=== PATIENT | male | born 1960 | race Caucasian/White ===

== ENCOUNTER 2019-10-22 11:07 | Outpatient (CLI) | payer OTHER ==
[2019-10-22 11:51] LABS: CLARITY,URINE CLEAR (Clear); COLOR,URINE YELLOW (Yellow); GLUCOSE, URINE NEGATIVE (Neg); KETONES,URINE NEGATIVE (Neg); LEUKOCYTE ESTERASE ,URINE NEGATIVE (Neg); NITRITES, URINE NEGATIVE (Neg); OCCULT BLOOD,URINE SMALL (Neg); PROTEIN,URINE NEGATIVE (Neg); UA COLLECTION TYPE CLN CATCH MIDSTREAM; UROBILINOGEN,URINE 0.2 E.U/dL (0.2-1.0)
[2019-10-22 11:52] LABS: BASOPHILS # (AUTO) 0.1 X10'3 (0-0.2); BASOPHILS % (AUTO) 0.9 % (0-1); EOSINOPHILS # (AUTO) 0.3 X10'3 (0-0.9); EOSINOPHILS % (AUTO) 3.6 % (0-6); HEMATOCRIT 46.4 % (42.0-52.0); HEMOGLOBIN 15.8 g/dl (14.0-17.9); LYMPHOCYTES # (AUTO) 1.7 X10'3 (1.1-4.8); LYMPHOCYTES % (AUTO) 21.7 % (21-51); MEAN CORPUSCULAR HEMOGLOBIN 29.1 PG (27.0-31.0); MEAN CORPUSCULAR HGB CONC 34.1 g/dL (33.0-36.5); MEAN CORPUSCULAR VOLUME 85.4 FL (78-98); MEAN PLATELET VOLUME 9.3 FL (7.4-10.4); MONOCYTES # (AUTO) 0.5 X10'3 (0-0.9); MONOCYTES % (AUTO) 5.7 % (2-12); NEUTROPHILS # (AUTO) 5.4 X10'3 (1.8-7.7); NEUTROPHILS % (AUTO) 68.1 % (42-75); PLATELET COUNT 196 X10'3 (140-440); RED BLOOD COUNT 5.43 X10'6 (4.70-6.10); RED CELL DISTRIBUTION WIDTH 13.6 % (11.5-14.5); WHITE BLOOD COUNT 7.9 X10'3 (4.5-11.0)
[2019-10-22 11:59] LABS: SQUAMOUS EPITHELIAL CELL,UR FEW /LPF (FEW)
[2019-10-22 12:00] LABS: BACTERIA,URINE FEW /HPF (Neg); RBC,URINE 0-2 /HPF (0-2); WBC,URINE NONE SEEN /HPF (0-4)
[2019-10-22 12:10] LABS: ALANINE AMINOTRANSFERASE 35 U/L (12-78); ALBUMIN/GLOBULIN RATIO 1.1 (1.1-1.5); ALKALINE PHOSPHATASE 61 IU/L (46-116); ANION GAP 7 (8-16); ASPARTATE AMINO TRANSFERASE 15 U/L (10-37); BILIRUBIN,TOTAL 0.3 MG/DL (0.1-1.0); BLOOD UREA NITROGEN 16 MG/DL (7-18); BUN/CREATININE RATIO 15.2 (5.4-32.0); CALCIUM 8.8 MG/DL (8.5-10.1); CHLORIDE 104 MMOL/L (99-107); CHOL/HDL RATIO 5.5 (0.00-4.99); CHOLESTEROL 197 MG/DL (0-200); CREATININE 1.05 MG/DL (0.60-1.10); GLUCOSE 116 MG/DL (70-104); HDL CHOLESTEROL 36 MG/DL (35-60); LDL CHOLESTEROL 139 MG/DL (50-100); SODIUM 139 MMOL/L (135-145); TOTAL CARBON DIOXIDE 28.4 MMOL/L (24-32); TOTAL PROTEIN 7.7 G/DL (6.4-8.2); TRIGLYCERIDES 165 MG/DL (20-135); eGFR 72 ML/MIN
== END 2019-10-22 23:59 | disposition home or self-care (01) ==
LOC: RAD 11:07
PROVIDERS: ATTEND Family Medicine
DX: Z12.11 Encounter for screening for malignant neoplasm of colon (principal); M17.0 Bilateral primary osteoarthritis of knee; M76.892 Other specified enthesopathies of left lower limb, excluding foot; M76.891 Other specified enthesopathies of right lower limb, excluding foot; I10 Essential (primary) hypertension; R06.83 Snoring; E66.9 Obesity, unspecified; Z76.89 Persons encountering health services in other specified circumstances; Z87.891 Personal history of nicotine dependence
CPT/HCPCS: 36415; 73564; 80053; 80061; 81001; 84439; 84443; 85025

== ENCOUNTER 2019-12-04 07:43 | Day surgery (SDC) | payer OTHER ==
[~2019-12-04] VITALS: Ht 188 cm; Wt 104.5 kg
[2019-12-04 08:15] VITALS: BP 187/98
[2019-12-04] MEDS ORDERED: LISI40TA4 PO (08:24)
[2019-12-04] MEDS ORDERED: LEVO25TA7 PO (08:25)
[2019-12-04] MEDS ORDERED: MIDAZolam 5mg/5ml vial ONE (08:37)
[2019-12-04] MEDS ORDERED: fentaNYL/PF 50MCG/1 ML 2ML syringe ONE (08:37)
[2019-12-04 10:12] VITALS: BP 140/84
[2019-12-04 10:22] VITALS: BP 132/79
[2019-12-04 10:32] VITALS: BP 131/82
== END 2019-12-04 10:55 | disposition home or self-care (01) ==
LOC: GI LAB 07:43
PROVIDERS: ATTEND Internal Medicine Gastroenterology
DX: Z12.11 Encounter for screening for malignant neoplasm of colon (principal); Z53.8 Procedure and treatment not carried out for other reasons; Z87.19 Personal history of other diseases of the digestive system
CPT/HCPCS: 45378; 99152; J2250; J3010; J7040; A4620

== ENCOUNTER 2019-12-05 10:08 | Day surgery (SDC) | payer OTHER ==
[~2019-12-05] VITALS: Ht 188 cm; Wt 150.0 kg
[~2019-12-05 10:08] MED LIST: LEVO25TA7 PO; LISI40TA4 PO
[2019-12-05 10:14] VITALS: BP 158/93
[2019-12-05] MEDS ORDERED: fentaNYL/PF 50MCG/1 ML 2ML syringe ONE (10:47)
[2019-12-05] MEDS ORDERED: MIDAZolam 5mg/5ml vial ONE (10:47)
[2019-12-05 11:43] VITALS: BP 138/86
[2019-12-05 11:53] VITALS: BP 124/81
[2019-12-05 12:03] VITALS: BP 125/89
[2019-12-05 12:13] VITALS: BP 138/87
== END 2019-12-05 12:30 | disposition home or self-care (01) ==
LOC: GI LAB 10:08
PROVIDERS: ATTEND Internal Medicine Gastroenterology
DX: Z12.11 Encounter for screening for malignant neoplasm of colon (principal); K57.30 Diverticulosis of large intestine without perforation or abscess without bleeding
CPT/HCPCS: 45378; 99152; 99153; J2250; J3010; J7040; A4620

== ENCOUNTER 2019-12-11 10:15 | Outpatient (CLI) | payer OTHER ==
[2019-12-11 11:12] LABS: HEMOGLOBIN A1C 6.4 % (4.5-6.2)
[2019-12-11 11:21] LABS: CHOL/HDL RATIO 5.9 (0.00-4.99); CHOLESTEROL 188 MG/DL (0-200); HDL CHOLESTEROL 32 MG/DL (35-60); LDL CHOLESTEROL 132 MG/DL (50-100); TRIGLYCERIDES 279 MG/DL (20-135)
== END 2019-12-11 23:59 | disposition home or self-care (01) ==
LOC: LAB 10:15
PROVIDERS: ATTEND Family Medicine
DX: E03.9 Hypothyroidism, unspecified (principal); E78.5 Hyperlipidemia, unspecified; R73.9 Hyperglycemia, unspecified
CPT/HCPCS: 36415; 80061; 83036; 84439; 84443

== ENCOUNTER 2020-07-07 12:12 | Outpatient (CLI) | payer BC ==
[2020-07-07 13:26] LABS: BASOPHILS # (AUTO) 0.1 X10'3 (0-0.2); BASOPHILS % (AUTO) 0.5 % (0-1); EOSINOPHILS # (AUTO) 0.2 X10'3 (0-0.9); EOSINOPHILS % (AUTO) 2.3 % (0-6); HEMATOCRIT 46.7 % (42.0-52.0); HEMOGLOBIN 15.5 g/dl (14.0-17.9); LYMPHOCYTES # (AUTO) 2.1 X10'3 (1.1-4.8); LYMPHOCYTES % (AUTO) 21.6 % (21-51); MEAN CORPUSCULAR HEMOGLOBIN 28.7 PG (27.0-31.0); MEAN CORPUSCULAR HGB CONC 33.2 g/dL (33.0-36.5); MEAN CORPUSCULAR VOLUME 86.5 FL (78-98); MEAN PLATELET VOLUME 9.6 FL (7.4-10.4); MONOCYTES # (AUTO) 0.8 X10'3 (0-0.9); MONOCYTES % (AUTO) 8.3 % (2-12); NEUTROPHILS # (AUTO) 6.4 X10'3 (1.8-7.7); NEUTROPHILS % (AUTO) 67.3 % (42-75); PLATELET COUNT 252 X10'3 (140-440); RED CELL DISTRIBUTION WIDTH 13.6 % (11.5-14.5); WHITE BLOOD COUNT 9.5 X10'3 (4.5-11.0)
[2020-07-07 13:37] LABS: HEMOGLOBIN A1C 7.5 % (4.5-6.2)
[2020-07-07 13:58] LABS: ALANINE AMINOTRANSFERASE 40 U/L (12-78); ALBUMIN 3.7 G/DL (3.4-5.0); ALBUMIN/GLOBULIN RATIO 0.9 (1.1-1.5); ALKALINE PHOSPHATASE 44 IU/L (46-116); ANION GAP 12 (8-16); ASPARTATE AMINO TRANSFERASE 22 U/L (10-37); BILIRUBIN,TOTAL 0.4 MG/DL (0.1-1.0); BLOOD UREA NITROGEN 15 MG/DL (7-18); BUN/CREATININE RATIO 12.1 (5.4-32.0); CALCIUM 9.1 MG/DL (8.5-10.1); CHLORIDE 101 MMOL/L (99-107); CHOL/HDL RATIO 5.8 (0.00-4.99); CHOLESTEROL 187 MG/DL (0-200); CREATININE 1.24 MG/DL (0.60-1.10); GLUCOSE 165 MG/DL (70-104); HDL CHOLESTEROL 32 MG/DL (35-60); LDL CHOLESTEROL 125 MG/DL (50-100); POTASSIUM 4.1 MMOL/L (3.5-5.1); SODIUM 138 MMOL/L (135-145); TOTAL CARBON DIOXIDE 25.4 MMOL/L (24-32); TOTAL PROTEIN 7.9 G/DL (6.4-8.2); TRIGLYCERIDES 294 MG/DL (20-135); eGFR 59 ML/MIN
== END 2020-07-07 23:59 | disposition home or self-care (01) ==
LOC: LAB 12:12
PROVIDERS: ATTEND Family Medicine
DX: E03.9 Hypothyroidism, unspecified (principal); I10 Essential (primary) hypertension; E78.5 Hyperlipidemia, unspecified; R06.83 Snoring; R73.01 Impaired fasting glucose
CPT/HCPCS: 36415; 80053; 80061; 83036; 84439; 84443; 85025

== ENCOUNTER 2020-09-20 09:05 | Outpatient (CLI) | payer BC ==
[2020-09-20 09:36] LABS: ALBUMIN 4.1 G/DL (3.4-5.0); ANION GAP 7 (8-16); BLOOD UREA NITROGEN 24 MG/DL (7-18); BUN/CREATININE RATIO 15.8 (5.4-32.0); CALCIUM 9.3 MG/DL (8.5-10.1); CHLORIDE 99 MMOL/L (99-107); CREATININE 1.52 MG/DL (0.60-1.10); GLUCOSE 109 MG/DL (70-104); HEMOGLOBIN A1C 6.6 % (4.5-6.2); SODIUM 133 MMOL/L (135-145); TOTAL CARBON DIOXIDE 27.5 MMOL/L (24-32); eGFR 47 ML/MIN
== END 2020-09-20 23:59 | disposition home or self-care (01) ==
LOC: LAB 09:05
PROVIDERS: ATTEND Family Medicine
DX: E78.5 Hyperlipidemia, unspecified (principal); E11.9 Type 2 diabetes mellitus without complications
CPT/HCPCS: 36415; 80048; 83036

== ENCOUNTER 2021-01-20 08:22 | Outpatient (CLI) | payer BC ==
[~2021-01-20 08:22] MED LIST changes: +LISI40TA13 PO; -LISI40TA4 PO
[2021-01-20 09:09] LABS: BASOPHILS # (AUTO) 0.1 X10'3 (0-0.2); BASOPHILS % (AUTO) 0.7 % (0-1); EOSINOPHILS # (AUTO) 0.3 X10'3 (0-0.9); EOSINOPHILS % (AUTO) 3.2 % (0-6); HEMATOCRIT 48.2 % (42.0-52.0); HEMOGLOBIN 16.1 g/dl (14.0-17.9); LYMPHOCYTES % (AUTO) 24.4 % (21-51); MEAN CORPUSCULAR HGB CONC 33.4 g/dL (33.0-36.5); MEAN CORPUSCULAR VOLUME 86.8 FL (78-98); MONOCYTES # (AUTO) 0.7 X10'3 (0-0.9); MONOCYTES % (AUTO) 8.7 % (2-12); NEUTROPHILS # (AUTO) 5.3 X10'3 (1.8-7.7); PLATELET COUNT 243 X10'3 (140-440); RED BLOOD COUNT 5.56 X10'6 (4.70-6.10); RED CELL DISTRIBUTION WIDTH 13.6 % (11.5-14.5); WHITE BLOOD COUNT 8.4 X10'3 (4.5-11.0)
[2021-01-20 09:15] LABS: HEMOGLOBIN A1C 6.5 % (4.5-6.2)
[2021-01-20 09:23] LABS: CLARITY,URINE CLEAR (Clear); COLOR,URINE YELLOW (Yellow); GLUCOSE, URINE NEGATIVE (Neg); KETONES,URINE NEGATIVE (Neg); LEUKOCYTE ESTERASE ,URINE NEGATIVE (Neg); NITRITES, URINE NEGATIVE (Neg); OCCULT BLOOD,URINE TRACE-INTACT (Neg); PROTEIN,URINE NEGATIVE (Neg); UROBILINOGEN,URINE 0.2 E.U/dL (0.2-1.0)
[2021-01-20 09:30] LABS: UA COLLECTION TYPE CLN CATCH MIDSTREAM
[2021-01-20 09:38] LABS: BACTERIA,URINE NONE SEEN /HPF (Neg); RBC,URINE NONE SEEN /HPF (0-2); SQUAMOUS EPITHELIAL CELL,UR FEW /LPF (FEW); WBC,URINE 0-4 /HPF (0-4)
[2021-01-20 10:13] LABS: ALANINE AMINOTRANSFERASE 38 U/L (12-78); ALBUMIN 3.9 G/DL (3.4-5.0); ALKALINE PHOSPHATASE 55 IU/L (46-116); ANION GAP 8 (8-16); ASPARTATE AMINO TRANSFERASE 16 U/L (10-37); BILIRUBIN,TOTAL 0.5 MG/DL (0.1-1.0); BLOOD UREA NITROGEN 25 MG/DL (7-18); BUN/CREATININE RATIO 19.1 (5.4-32.0); CALCIUM 9.6 MG/DL (8.5-10.1); CHLORIDE 101 MMOL/L (99-107); CHOL/HDL RATIO 3.7 (0.00-4.99); CHOLESTEROL 155 MG/DL (0-200); CREATININE 1.31 MG/DL (0.60-1.10); GLUCOSE 117 MG/DL (70-104); HDL CHOLESTEROL 42 MG/DL (35-60); LDL CHOLESTEROL 95 MG/DL (50-100); POTASSIUM 4.2 MMOL/L (3.5-5.1); SODIUM 138 MMOL/L (135-145); TOTAL PROTEIN 7.9 G/DL (6.4-8.2); eGFR 55 ML/MIN
[2021-01-20 11:45] LABS: TRIGLYCERIDES 124 MG/DL (20-135)
== END 2021-01-20 23:59 | disposition home or self-care (01) ==
LOC: LAB 08:22
PROVIDERS: ATTEND Family Medicine
DX: M17.12 Unilateral primary osteoarthritis, left knee (principal); M25.462 Effusion, left knee; M25.461 Effusion, right knee; M25.762 Osteophyte, left knee; M25.761 Osteophyte, right knee; R53.83 Other fatigue; D64.9 Anemia, unspecified; E78.5 Hyperlipidemia, unspecified; N30.90 Cystitis, unspecified without hematuria; E07.9 Disorder of thyroid, unspecified; E11.9 Type 2 diabetes mellitus without complications
CPT/HCPCS: 36415; 73564; 73565; 80053; 80061; 81001; 83036; 84439; 84443; 85025

== ENCOUNTER → 2021-10-05 | Emergency (ER) | payer BC ==
[~2021-10-05] VITALS: Ht 188 cm; Wt 145.0 kg
[2021-10-05 23:24] VITALS: BP 160/96
== END | disposition left against medical advice (07) ==
LOC: ER 23:19
DX: S61.219A Laceration without foreign body of unspecified finger without damage to nail, initial encounter (principal); Z53.21 Procedure and treatment not carried out due to patient leaving prior to being seen by health care provider; X58.XXXA Exposure to other specified factors, initial encounter; Y93.9 Activity, unspecified; Y92.9 Unspecified place or not applicable; Y99.9 Unspecified external cause status

== ENCOUNTER 2021-11-29 20:39 | Inpatient (IN) | payer BC ==
[~2021-11-29] VITALS: Ht 188 cm; Wt 137.0 kg
[2021-11-29 21:44] LABS: BASOPHILS % (AUTO) 0.3 % (0-1); EOSINOPHILS % (AUTO) 0 % (0-6); HEMATOCRIT 46.4 % (42.0-52.0); HEMOGLOBIN 15.9 g/dl (14.0-17.9); LYMPHOCYTES # (AUTO) 0.7 X10'3 (1.1-4.8); LYMPHOCYTES % (AUTO) 6.4 % (21-51); MEAN CORPUSCULAR HEMOGLOBIN 29.1 PG (27.0-31.0); MEAN CORPUSCULAR HGB CONC 34.3 g/dL (33.0-36.5); MEAN PLATELET VOLUME 8.6 FL (7.4-10.4); MONOCYTES # (AUTO) 0.7 X10'3 (0-0.9); NEUTROPHILS # (AUTO) 8.9 X10'3 (1.8-7.7); NEUTROPHILS % (AUTO) 86.3 % (42-75); PLATELET COUNT 227 X10'3 (140-440); RED BLOOD COUNT 5.46 X10'6 (4.70-6.10); RED CELL DISTRIBUTION WIDTH 13.6 % (11.5-14.5); WHITE BLOOD COUNT 10.4 X10'3 (4.5-11.0)
[2021-11-29 22:04] LABS: ALANINE AMINOTRANSFERASE 72 U/L (12-78); ALBUMIN 2.7 G/DL (3.4-5.0); ALBUMIN/GLOBULIN RATIO 0.5 (1.1-1.5); ALKALINE PHOSPHATASE 40 IU/L (46-116); ANION GAP 12 (8-16); ASPARTATE AMINO TRANSFERASE 72 U/L (10-37); BILIRUBIN,TOTAL 0.8 MG/DL (0.1-1.0); BLOOD UREA NITROGEN 36 MG/DL (7-18); BUN/CREATININE RATIO 19.1 (5.4-32.0); CALCIUM 8.3 MG/DL (8.5-10.1); CHLORIDE 93 MMOL/L (99-107); CREATININE 1.88 MG/DL (0.60-1.10); GLUCOSE 163 MG/DL (70-104); POTASSIUM 3.7 MMOL/L (3.5-5.1); SODIUM 129 MMOL/L (135-145); TOTAL CARBON DIOXIDE 24.1 MMOL/L (24-32); TOTAL PROTEIN 7.8 G/DL (6.4-8.2); eGFR 36 ML/MIN
[2021-11-30] VITALS (9 sets, daily range): BP systolic 100–135; BP diastolic 49–86
[2021-11-30 00:14] LABS: APTT 24 SECONDS (22-32)
[2021-11-30] MEDS ORDERED: normal saline 1000ML IV soln IVB ONE (00:15)
[2021-11-30] MEDS ORDERED: normal saline 1000ml 1,000 ML IV ONE (00:15)
--- NOTE | 2021-11-30 00:16 | NUR ---
Mary, patient's called for update. Left cell phone for any pertinent updates.
[2021-11-30 00:17] LABS: C-REACTIVE PROTEIN 12.88 MG/DL (0.0-0.5)
[2021-11-30] MEDS ORDERED: enoxaparin 100mg/ml syringe SUBCUT ONE (00:20)
[2021-11-30] MEDS ORDERED: REMDESIVIR INJ 200 MG in normal saline 100ml IV soln 100 ML IV ONE (00:20)
[2021-11-30] MEDS ORDERED: enoxaparin 40mg/0.4ml syringe SUBCUT ONE (00:20)
[2021-11-30] MEDS ORDERED: PRAV40TA3 PO (00:28)
[2021-11-30] MEDS ORDERED: CHLO25TA10 PO (00:28)
[2021-11-30 00:46] LABS: D-DIMER 1.19 MG/L FEU (0-0.50)
[2021-11-30] MEDS ORDERED: acetaminophen 325mg tablet PO PRN (02:30)
--- NOTE | 2021-11-30 03:00 | NUR ---
Verified again with Dr. Loera that provider okay with patient oxygen saturations hovering around 88-90% on hiflo oxygen delivery. Provider temi'johanna.
--- NOTE | 2021-11-30 03:30 | NUR ---
Patient repeatedly needing to be told to wear oxygen delivery equipment. Patient often taking off mask/oxygen delivery.
[2021-11-30] MEDS ORDERED: dexamethasone inj 8 MG in dextrose 5%-water 100 ML IV SCH ×2 (08:00→20:00)
[2021-11-30] MEDS ORDERED: rocuronium 10mg/ml inj IV ONE (08:00)
[2021-11-30] MEDS ORDERED: etomidate 2mg/ml inj. ONE (08:00)
[2021-11-30] MEDS ORDERED: enoxaparin 30mg/0.3ml syringe SUBCUT SCH (08:00)
[2021-11-30] MEDS ORDERED: TOCILIZUMAB 80MG/4 ML INJ. 800 MG in normal saline 100ml IV soln 60 ML IV ONE (10:50)
[2021-11-30 11:34] LABS: BASOPHILS % (AUTO) 0.3 % (0-1); EOSINOPHILS % (AUTO) 0 % (0-6); HEMATOCRIT 41.4 % (42.0-52.0); HEMOGLOBIN 14.1 g/dl (14.0-17.9); LYMPHOCYTES # (AUTO) 0.7 X10'3 (1.1-4.8); MEAN CORPUSCULAR HEMOGLOBIN 28.9 PG (27.0-31.0); MEAN CORPUSCULAR HGB CONC 34.1 g/dL (33.0-36.5); MEAN CORPUSCULAR VOLUME 84.8 FL (78-98); MONOCYTES # (AUTO) 0.6 X10'3 (0-0.9); MONOCYTES % (AUTO) 6.3 % (2-12); NEUTROPHILS # (AUTO) 8.4 X10'3 (1.8-7.7); NEUTROPHILS % (AUTO) 86.4 % (42-75); PLATELET COUNT 237 X10'3 (140-440); RED BLOOD COUNT 4.89 X10'6 (4.70-6.10); RED CELL DISTRIBUTION WIDTH 13.9 % (11.5-14.5); WHITE BLOOD COUNT 9.7 X10'3 (4.5-11.0)
[2021-11-30 11:49] LABS: ALANINE AMINOTRANSFERASE 61 U/L (12-78); ALBUMIN 2.3 G/DL (3.4-5.0); ALBUMIN/GLOBULIN RATIO 0.5 (1.1-1.5); ALKALINE PHOSPHATASE 35 IU/L (46-116); ANION GAP 10 (8-16); ASPARTATE AMINO TRANSFERASE 74 U/L (10-37); BILIRUBIN,TOTAL 0.6 MG/DL (0.1-1.0); BLOOD UREA NITROGEN 40 MG/DL (7-18); BUN/CREATININE RATIO 23.8 (5.4-32.0); CALCIUM 7.8 MG/DL (8.5-10.1); CHLORIDE 96 MMOL/L (99-107); CREATININE 1.68 MG/DL (0.60-1.10); GLUCOSE 130 MG/DL (70-104); POTASSIUM 3.8 MMOL/L (3.5-5.1); SODIUM 133 MMOL/L (135-145); TOTAL CARBON DIOXIDE 27.5 MMOL/L (24-32); TOTAL PROTEIN 6.6 G/DL (6.4-8.2); eGFR 41 ML/MIN
[2021-11-30] MEDS: lisinopril 20mg tablet PO SCH (14:08)
[2021-11-30] MEDS: atorvastatin 10mg tablet PO SCH (14:08)
[2021-11-30] MEDS: levoTHYROXINE 25mcg tablet PO SCH (14:08)
[2021-11-30] MEDS: chlorthalidone 25mg tablet PO SCH (14:08)
[2021-11-30] MEDS ORDERED: bisacodyl 10mg suppository rectal RC STA (15:52)
[2021-11-30] MEDS ORDERED: polyethylene glycol 3350 17gm powd pack PO ONE (15:55)
[2021-11-30 16:38] LABS: ABG BASE EXCESS 2.9 mmol/L (-2.0-2.0); ABG HCO3 26.5 mmol/L (22.0-26.0); ABG OXYGEN SATURATION 87.1 % (94-97); ALLEN'S TEST POSITIVE; FCOHb 0.2 % (0.0-3.9); FLOW 30 L/min; FMetHb 0.1 % (0.0-1.5); FO2Hb 86.8 % (94-97); PATIENT TEMPERATURE 37.1; TOTAL HEMOGLOBIN 15.9 G/dl (14.0-18.0)
[2021-11-30] MEDS ORDERED: bisacodyl 10mg suppository rectal RC PRN (20:00)
[2021-11-30] MEDS ORDERED: heparin, porcine 5000 units/ml vial SQ SCH (20:00)
[2021-11-30] MEDS: polyethylene glycol 3350 17gm powd pack PO SCH (20:27)
[2021-11-30] MEDS: enoxaparin 40mg/0.4ml syringe SUBCUT SCH (20:27)
--- NOTE | 2021-11-30 21:55 | NUR ---
Called report to OZZY Guerrero on Neuro. Questions answered and respiratory therapy notified of transfer. Will continue to assess and intervene as appropriate.
--- NOTE | 2021-11-30 22:20 | NUR ---
Received report from Leeann PRECIADO from CICU. Patient transferred to our floor. Patient slide into bed, Bed placed in locked and low position. Call light within reach.
[2021-12-01 02:00] VITALS: BP 108/64
[2021-12-01] MEDS: REMDESIVIR 100 MG in NS 100ml IVPB IV SCH (03:09)
[2021-12-01 06:06] VITALS: BP 105/63
--- NOTE | 2021-12-01 06:38 | NUR ---
Problems reprioritized. Patient report given, questions answered & plan of care reviewed with Josep PRECIADO.
[2021-12-01 07:47] LABS: BASOPHILS % (AUTO) 0.1 % (0-1); EOSINOPHILS % (AUTO) 0 % (0-6); HEMATOCRIT 42.3 % (42.0-52.0); HEMOGLOBIN 14.5 g/dl (14.0-17.9); LYMPHOCYTES # (AUTO) 0.5 X10'3 (1.1-4.8); LYMPHOCYTES % (AUTO) 6.2 % (21-51); MEAN CORPUSCULAR HEMOGLOBIN 29.4 PG (27.0-31.0); MEAN CORPUSCULAR HGB CONC 34.3 g/dL (33.0-36.5); MEAN CORPUSCULAR VOLUME 85.7 FL (78-98); MEAN PLATELET VOLUME 9.2 FL (7.4-10.4); MONOCYTES # (AUTO) 0.3 X10'3 (0-0.9); MONOCYTES % (AUTO) 3.7 % (2-12); NEUTROPHILS # (AUTO) 7.4 X10'3 (1.8-7.7); PLATELET COUNT 317 X10'3 (140-440); RED BLOOD COUNT 4.94 X10'6 (4.70-6.10); RED CELL DISTRIBUTION WIDTH 13.7 % (11.5-14.5); WHITE BLOOD COUNT 8.2 X10'3 (4.5-11.0)
[2021-12-01] MEDS ORDERED: REMDESIVIR INJ 100 MG in normal saline 100ml IV soln 100 ML IV SCH (08:00)
[2021-12-01 08:18] LABS: ALBUMIN 2.4 G/DL (3.4-5.0); ANION GAP 11 (8-16); BLOOD UREA NITROGEN 53 MG/DL (7-18); BUN/CREATININE RATIO 30.3 (5.4-32.0); C-REACTIVE PROTEIN 15.45 MG/DL (0.0-0.5); CALCIUM 8.1 MG/DL (8.5-10.1); CHLORIDE 98 MMOL/L (99-107); CREATININE 1.75 MG/DL (0.60-1.10); GLUCOSE 169 MG/DL (70-104); POTASSIUM 3.9 MMOL/L (3.5-5.1); SODIUM 135 MMOL/L (135-145); TOTAL CARBON DIOXIDE 26.2 MMOL/L (24-32); eGFR 40 ML/MIN
[2021-12-01 08:36] LABS: D-DIMER 0.93 MG/L FEU (0-0.50)
[2021-12-01] MEDS: levoTHYROXINE 25mcg tablet PO SCH (09:59)
[2021-12-01] MEDS: lisinopril 20mg tablet PO SCH (09:59)
[2021-12-01] MEDS: chlorthalidone 25mg tablet PO SCH (09:59)
[2021-12-01] MEDS: atorvastatin 10mg tablet PO SCH (09:59)
[2021-12-01] MEDS: enoxaparin 40mg/0.4ml syringe SUBCUT SCH ×2 (09:59→19:50)
[2021-12-01 10:05] VITALS: BP 111/69
[2021-12-01 15:19] VITALS: BP 111/74
[2021-12-01] MEDS: dexamethasone inj 8 MG in dextrose 5%-water 100 ML IV SCH ×2 (17:26→23:44)
[2021-12-01 18:00] VITALS: BP 109/73
--- NOTE | 2021-12-01 18:22 | NUR ---
Patient in room [facility] 4006. I have received report from Josep PRECIADO and had the opportunity to ask questions and assume patient care.
[2021-12-01] MEDS: polyethylene glycol 3350 17gm powd pack PO SCH (19:50)
[2021-12-01 22:00] VITALS: BP 109/63
[2021-12-02] VITALS (7 sets, daily range): BP systolic 110–138; BP diastolic 59–85
[2021-12-02] MEDS: REMDESIVIR 100 MG in NS 100ml IVPB IV SCH (02:58)
--- NOTE | 2021-12-02 06:49 | NUR ---
Problems reprioritized. Patient report given, questions answered & plan of care reviewed with Sarah PRECIADO.
[2021-12-02 08:21] LABS: BASOPHILS % (AUTO) 0.1 % (0-1); EOSINOPHILS % (AUTO) 0 % (0-6); HEMATOCRIT 44.4 % (42.0-52.0); HEMOGLOBIN 15.1 g/dl (14.0-17.9); LYMPHOCYTES # (AUTO) 0.5 X10'3 (1.1-4.8); LYMPHOCYTES % (AUTO) 3.4 % (21-51); MEAN CORPUSCULAR HGB CONC 34.1 g/dL (33.0-36.5); MEAN CORPUSCULAR VOLUME 85.3 FL (78-98); MEAN PLATELET VOLUME 8.9 FL (7.4-10.4); MONOCYTES # (AUTO) 0.7 X10'3 (0-0.9); MONOCYTES % (AUTO) 4.8 % (2-12); NEUTROPHILS # (AUTO) 13.7 X10'3 (1.8-7.7); NEUTROPHILS % (AUTO) 91.7 % (42-75); PLATELET COUNT 418 X10'3 (140-440); RED CELL DISTRIBUTION WIDTH 13.7 % (11.5-14.5); WHITE BLOOD COUNT 14.9 X10'3 (4.5-11.0)
[2021-12-02 08:31] LABS: ALBUMIN 2.6 G/DL (3.4-5.0); ANION GAP 9 (8-16); BLOOD UREA NITROGEN 53 MG/DL (7-18); BUN/CREATININE RATIO 33.8 (5.4-32.0); C-REACTIVE PROTEIN 7.42 MG/DL (0.0-0.5); CALCIUM 8.4 MG/DL (8.5-10.1); CHLORIDE 98 MMOL/L (99-107); CREATININE 1.57 MG/DL (0.60-1.10); GLUCOSE 241 MG/DL (70-104); POTASSIUM 3.8 MMOL/L (3.5-5.1); SODIUM 136 MMOL/L (135-145); TOTAL CARBON DIOXIDE 29.4 MMOL/L (24-32); eGFR 45 ML/MIN
[2021-12-02] MEDS: atorvastatin 10mg tablet PO SCH (09:13)
[2021-12-02] MEDS: dexamethasone inj 8 MG in dextrose 5%-water 100 ML IV SCH ×2 (09:13→16:18)
[2021-12-02] MEDS: chlorthalidone 25mg tablet PO SCH (09:13)
[2021-12-02] MEDS: lisinopril 20mg tablet PO SCH (09:13)
[2021-12-02] MEDS: enoxaparin 40mg/0.4ml syringe SUBCUT SCH ×2 (09:14→19:27)
[2021-12-02] MEDS: levoTHYROXINE 25mcg tablet PO SCH (09:15)
[2021-12-02 09:18] LABS: D-DIMER 1.52 MG/L FEU (0-0.50)
--- NOTE | 2021-12-02 18:20 | NUR ---
Spoke to Beverly in ICU regarding patient not having hospitalist. She said she would speak to Bruce and get back to me, has not gotten back to me.
--- NOTE | 2021-12-02 18:24 | NUR ---
Problems reprioritized. Patient report given, questions answered & plan of care reviewed with Suri PRECIADO.
--- NOTE | 2021-12-02 18:37 | NUR ---
Patient in room [facility]TH[facility] 4006. I have received report from Sarah PRECIADO and had the opportunity to ask questions and assume patient care.
[2021-12-02] MEDS: polyethylene glycol 3350 17gm powd pack PO SCH (19:27)
--- NOTE | 2021-12-02 21:00 | NUR ---
Call from telegraphic typewriter mechanic of ST elevation on tele monitor. EKG performed showing acute PA. Patient states he has no chest pain. Charge nurse notified. Called termite control technician hearing care practitioner Dr. Russ and she said patient is not on her case and a hospitalist should be following. No hospitalist has been on patients case. Nursing resident care supervisor notified and stemi alert activated.
--- NOTE | 2021-12-02 21:05 | NUR ---
Pt's nurse, Suri came to me and said that television audio engineer called with new ST elevation on pt's heart monitor. EKG done and it showed CT acute. I called the night hospitalist but the hospitalist is not on the case, when patient was transferred to us on the no doctor has seen him since that day. During the day the nursing staff tried to get a day hospitalist on the case and has not been successful. I called the nursing permanent mold supervisor and she was calling a STEMI alert for the patient. Dr Rivers was called by the nursing permanent mold supervisor and he is in discussion with the night hospitalist.
--- NOTE | 2021-12-02 21:40 | NUR ---
Dr. Ross up to floor and on the phone with Dr. Rivers.
[2021-12-02] MEDS ORDERED: aspirin 325mg tablet ONE (21:44)
[2021-12-02] MEDS ORDERED: aspirin 325mg tablet PO ONE (21:45)
--- NOTE | 2021-12-02 21:45 | NUR ---
Dr. Ross said to call him if the pt's troponin are elevated and then patient would need a heparin drip. As of right now the first troponin is negative.
[2021-12-02] MEDS: metoprolol tartrate 12.5mg (1/2 tablet) PO SCH (22:01)
--- NOTE | 2021-12-02 22:05 | NUR ---
Aspirin and betablocker given per Dr. Ross, patient experiencing some back pain 02/19.
[2021-12-02] MEDS ORDERED: PERFLUTREN PROTEIN-A MICROSPHR (Optison) 0.22 MG/ML 3ML VIAL IV ONE (23:00)
[2021-12-03] VITALS (18 sets, daily range): BP systolic 104–153; BP diastolic 71–91
[2021-12-03] MEDS: dexamethasone inj 8 MG in dextrose 5%-water 100 ML IV SCH ×4 (00:33→23:15)
[2021-12-03] MEDS ORDERED: heparin 25,000 UNIT/250ml bag 250 ML IV SCH (01:40)
[2021-12-03] MEDS ORDERED: heparin 10,000 units/1 ML INJ IV ONE (01:40)
[2021-12-03] MEDS ORDERED: heparin 10,000 units/1 ML INJ IV PRN (01:40)
[2021-12-03 02:00] LABS: BASOPHILS % (AUTO) 0.2 % (0-1); EOSINOPHILS % (AUTO) 0.1 % (0-6); HEMATOCRIT 45.2 % (42.0-52.0); HEMOGLOBIN 15.3 g/dl (14.0-17.9); LYMPHOCYTES # (AUTO) 0.5 X10'3 (1.1-4.8); LYMPHOCYTES % (AUTO) 2.7 % (21-51); MEAN CORPUSCULAR HEMOGLOBIN 29.2 PG (27.0-31.0); MEAN CORPUSCULAR HGB CONC 33.9 g/dL (33.0-36.5); MEAN CORPUSCULAR VOLUME 86.1 FL (78-98); MEAN PLATELET VOLUME 9.4 FL (7.4-10.4); MONOCYTES # (AUTO) 0.8 X10'3 (0-0.9); MONOCYTES % (AUTO) 4.3 % (2-12); NEUTROPHILS # (AUTO) 17.8 X10'3 (1.8-7.7); NEUTROPHILS % (AUTO) 92.7 % (42-75); PLATELET COUNT 457 X10'3 (140-440); RED BLOOD COUNT 5.25 X10'6 (4.70-6.10); RED CELL DISTRIBUTION WIDTH 13.5 % (11.5-14.5); WHITE BLOOD COUNT 19.1 X10'3 (4.5-11.0)
[2021-12-03 02:46] LABS: APTT 25 SECONDS (22-32)
[2021-12-03] MEDS: REMDESIVIR 100 MG in NS 100ml IVPB IV SCH (02:47)
[2021-12-03] MEDS: LORazepam 2 mg/ml vial IV PRN (04:53)
[2021-12-03 05:01] LABS: ALANINE AMINOTRANSFERASE 60 U/L (12-78); ALBUMIN 2.6 G/DL (3.4-5.0); ALBUMIN/GLOBULIN RATIO 0.6 (1.1-1.5); ALKALINE PHOSPHATASE 66 IU/L (46-116); ANION GAP 8 (8-16); ASPARTATE AMINO TRANSFERASE 47 U/L (10-37); BILIRUBIN,TOTAL 0.6 MG/DL (0.1-1.0); BLOOD UREA NITROGEN 48 MG/DL (7-18); CALCIUM 8.6 MG/DL (8.5-10.1); CHLORIDE 98 MMOL/L (99-107); GLUCOSE 279 MG/DL (70-104); POTASSIUM 4.2 MMOL/L (3.5-5.1); SODIUM 135 MMOL/L (135-145); TOTAL CARBON DIOXIDE 28.9 MMOL/L (24-32); eGFR 47 ML/MIN
[2021-12-03 05:05] LABS: C-REACTIVE PROTEIN 3.55 MG/DL (0.0-0.5)
[2021-12-03] MEDS ORDERED: morphine 4 MG/ML inj SYRINge IV PRN (05:20)
--- NOTE | 2021-12-03 05:20 | NUR ---
MD called about critical troponin and EKG done. MD at bedside.
--- NOTE | 2021-12-03 05:50 | NUR ---
Transferred to [facility]. Report given to Amparo PRECIADO
[2021-12-03] MEDS ORDERED: aspirin 325mg tablet, delayed-release (Ecotrin) PO ONE (06:00)
[2021-12-03] MEDS ORDERED: clopidogrel 300mg tablet PO ONE (06:00)
[2021-12-03] MEDS ORDERED: alteplase 100MG inj. 100 ML IV ONE (06:30)
--- NOTE | 2021-12-03 06:47 | NUR ---
After reviewing patient's chart and EKG, patient noted to have improvement on EKG. Dr. Garza and Dr. Rivers notified and orders to hold TPA, continue Heparin drip, give ASA and Plavix, and get an ECHO to monitor for possible inferior wall abnormalities. ict support technicians paged. Patient laying comfortably in bed, denying chest pain; however, has some back discomfort. Per MD, continue with followup EKG and Troponins.
[2021-12-03] MEDS: lisinopril 20mg tablet PO SCH (07:12)
[2021-12-03] MEDS: chlorthalidone 25mg tablet PO SCH (07:12)
[2021-12-03] MEDS: atorvastatin 10mg tablet PO SCH (07:12)
[2021-12-03] MEDS: levoTHYROXINE 25mcg tablet PO SCH (07:12)
[2021-12-03] MEDS: metoprolol tartrate 12.5mg (1/2 tablet) PO SCH ×2 (08:00→19:11)
[2021-12-03] MEDS ORDERED: dextrose 50%-water 50ml dispensing syringe IV PRN ×2 (09:00)
[2021-12-03] MEDS ORDERED: insulin regular, human U-100 3ml vial - multi-dose SQ SCH (09:00)
[2021-12-03] MEDS: heparin 25,000 UNIT/250ml bag 250 ML IV SCH ×3 (09:00→20:47)
[2021-12-03] MEDS ORDERED: dextrose ORAL solution 15 GM/59 ML bottle PO PRN ×2 (09:00)
--- NOTE | 2021-12-03 10:15 | NUR ---
Lab called to draw blood for scheduled ptt and Troponin; per labor economics professor, they should be on their way.
[2021-12-03 10:44] LABS: HEMOGLOBIN A1C 7.6 % (4.5-6.2)
[2021-12-03] MEDS: insulin Lispro (HumaLOG) vial - multi-dose SQ SCH ×4 (10:45→21:01)
--- NOTE | 2021-12-03 11:00 | NUR ---
coroner transport technician unable to get blood sample; will come back later.
[2021-12-03] MEDS: heparin 10,000 units/1 ML INJ IV PRN ×2 (14:03→20:46)
--- NOTE | 2021-12-03 14:10 | NUR ---
Critical Troponin 69266, bilingual call center representative machined parts metal sprayer Dr. Guillaume called with results. Per MD, patient will likely need heart cath but would like to order a troponin in another 6h, obtain an EKG now and in the morning. Patient not complain of any chest pain and has not had any EKG changes on bedside monitor. Will obtain a 12 lead.
--- NOTE | 2021-12-03 16:00 | NUR ---
Okay to eat food per Dr. Haydee LUNA aware of repeat EKG results
--- NOTE | 2021-12-03 18:29 | NUR ---
Problems reprioritized. Patient report given, questions answered & plan of care reviewed with Seth PRECIADO .
[2021-12-03] MEDS: polyethylene glycol 3350 17gm powd pack PO SCH (19:14)
[2021-12-03] MEDS: insulin glargine (Lantus) pen - multi-dose SQ SCH (20:58)
--- NOTE | 2021-12-03 22:15 | NUR ---
Pt is a 61 yo male, admitted 11/30/2021, day 3 of hospitalization, full code, NDA, test COVID + 11/22/2021. COVID isolation in accordance with facility policies and procedures and CDC recommendations. Admitted to ICU 12/01/2021, transferred to [facility]THO 12/01/2021, 12/02/2021 STEMI ALERT, transferred to ICU elevated troponin (peak troponin 12,882) recent troponin 7051. Pt remains on a Cardiac Heparin Gtt. Currently, Pt is afebrile, AAO times 4, moves all extremities, follows all commands. HR 60-70's good pulses, 119/76, ECHO 12/03/2021 shows EF 65%. No edema present. IVF infusing via LAC, f/p. Continue to monitor PTT and Troponin Q 6 hours. RR 20's, PO 90-93% on HFNC and NRM 100%. Breath sounds, diminished, equal symmetrical non labored, with fine exp wheezes left bases. Normo-active bowel sounds, soft non tender, large, round obese abdomen, passing flatus. Regular diet well tolerated. Protonix for GI prophylaxis. Glucose AC/HS, 2100 glucose 263 covered with Night time scale level 4, 2 units given SQ left arm. Pt was started on Lantus 12 units. Voids freely via urinal. Skin intact. Addendum: 12/03/21 at 2254 by Seth Henderson RN Updated pt's . She had multiple questions about his medications what he's on and why he is not on certain medicaiton. SHe request to speak with a MD on day shift for further information. Addendum: 12/04/21 at 0307 by Seth Henderson RN 0300 Troponin trending Down, 12/03/2019 10:00 Peak at 12,882. 12/03/2021 20:00 7051 12/04/2021 02:00 4301 Addendum: 12/04/21 at 0534 by Seth Henderson RN 044 Precedex started to relax patient 0520 pt falling asleep and desating to 84% placed on CPAP 100% FIO2 tolerating at this time continue to monitor.
[2021-12-04] VITALS (23 sets, daily range): BP systolic 80–144; BP diastolic 47–96
[2021-12-04] MEDS: REMDESIVIR 100 MG in NS 100ml IVPB IV SCH (02:42)
[2021-12-04 02:49] LABS: BASOPHILS % (AUTO) 0.1 % (0-1); EOSINOPHILS % (AUTO) 0 % (0-6); HEMATOCRIT 46.4 % (42.0-52.0); HEMOGLOBIN 15.7 g/dl (14.0-17.9); LYMPHOCYTES # (AUTO) 0.5 X10'3 (1.1-4.8); LYMPHOCYTES % (AUTO) 2.7 % (21-51); MEAN CORPUSCULAR HEMOGLOBIN 28.9 PG (27.0-31.0); MEAN CORPUSCULAR HGB CONC 33.8 g/dL (33.0-36.5); MEAN CORPUSCULAR VOLUME 85.6 FL (78-98); MEAN PLATELET VOLUME 8.5 FL (7.4-10.4); MONOCYTES # (AUTO) 0.6 X10'3 (0-0.9); MONOCYTES % (AUTO) 3.1 % (2-12); NEUTROPHILS # (AUTO) 16.8 X10'3 (1.8-7.7); NEUTROPHILS % (AUTO) 94.1 % (42-75); PLATELET COUNT 468 X10'3 (140-440); RED BLOOD COUNT 5.42 X10'6 (4.70-6.10); RED CELL DISTRIBUTION WIDTH 13.8 % (11.5-14.5); WHITE BLOOD COUNT 17.9 X10'3 (4.5-11.0)
[2021-12-04 02:57] LABS: ALBUMIN 2.6 G/DL (3.4-5.0); ANION GAP 8 (8-16); BLOOD UREA NITROGEN 42 MG/DL (7-18); BUN/CREATININE RATIO 29.6 (5.4-32.0); C-REACTIVE PROTEIN 1.99 MG/DL (0.0-0.5); CALCIUM 8.3 MG/DL (8.5-10.1); CHLORIDE 100 MMOL/L (99-107); CREATININE 1.42 MG/DL (0.60-1.10); GLUCOSE 235 MG/DL (70-104); POTASSIUM 4.2 MMOL/L (3.5-5.1); SODIUM 137 MMOL/L (135-145); TOTAL CARBON DIOXIDE 29.5 MMOL/L (24-32); eGFR 50 ML/MIN
[2021-12-04] MEDS ORDERED: dexmedetomidin/NS 400mcg/100ml 100 ML IV SCH (04:25)
--- NOTE | 2021-12-04 07:37 | NUR ---
Initial: Pt admitted w/ Covid PNA, ARDS, and DAHIANA per EMR, though also had a STEMI this admit per documentation. Pt currently on 65L HFNC though also had to be put on BiPAP last night per nursing notes. Despite this, pt has avg PO intake ~75% on Regular diet partially meeting needs. Given relatively good PO, will provide double protein and smoothies w/ some meals for additional calories/protein. LBM 11/30 w/ routine miralax being held because "med is not needed." Noted A1C 7.6 this admit though DM ed not appropriate at this time given pt respiratory status. May consider CCHO diet if consistent 75-100% intake of meals. Will continue to monitor. Recs: 1. Continue Regular diet as tolerated, consider Carb controlled if PO consistently 75-100% of meals 2. Double protein BIDBD 3. Smoothies BIDBL 4. Bowel care per rx 5. Scaled wt this admit, subsequent weekly wts Addendum: 12/04/21 at [address] Amended: Links added.
[2021-12-04] MEDS: atorvastatin 10mg tablet PO SCH (07:40)
[2021-12-04] MEDS: levoTHYROXINE 25mcg tablet PO SCH (07:40)
[2021-12-04] MEDS: dexamethasone inj 8 MG in dextrose 5%-water 100 ML IV SCH ×2 (07:41→15:47)
[2021-12-04] MEDS: chlorthalidone 25mg tablet PO SCH (07:41)
[2021-12-04] MEDS: lisinopril 20mg tablet PO SCH (07:41)
[2021-12-04] MEDS: metoprolol tartrate 12.5mg (1/2 tablet) PO SCH ×3 (08:00→20:24)
[2021-12-04] MEDS: insulin Lispro (HumaLOG) vial - multi-dose SQ SCH ×4 (08:27→21:25)
[2021-12-04 10:20] LABS: TOTAL CELLS COUNTED 100
[2021-12-04 10:21] LABS: PLATELET ESTIMATE INCREASED; POIKILOCYTOSIS FEW
[2021-12-04] MEDS: heparin 25,000 UNIT/250ml bag 250 ML IV SCH ×3 (13:08→21:35)
[2021-12-04] MEDS: polyethylene glycol 3350 17gm powd pack PO SCH (20:25)
[2021-12-04] MEDS: dexmedetomidine/D5W 100mL 100 ML IV SCH (20:25)
[2021-12-04] MEDS: insulin glargine (Lantus) pen - multi-dose SQ SCH (21:24)
[2021-12-04] MEDS: heparin 10,000 units/1 ML INJ IV PRN (21:34)
[2021-12-05] VITALS (24 sets, daily range): BP systolic 91–130; BP diastolic 52–96
[2021-12-05] MEDS: dexamethasone inj 8 MG in dextrose 5%-water 100 ML IV SCH ×3 (00:04→19:34)
[2021-12-05] MEDS: heparin 25,000 UNIT/250ml bag 250 ML IV SCH (00:16)
--- NOTE | 2021-12-05 03:10 | NUR ---
Pt is alert, oriented and a one assist to stand at the side of the bed. Pt had complaints of anxiety this shift. Precedex drip was restarted. Pt is on CPAP at this time and has oxygen saturations in the high 80s to low 90s. Pt is also bradycardic and slightly hypotensive. BS are stable. Urine output has been adequate this shift, no BM. Pt is sleeping in bed at this time. Will continue to assess and intervene as appropriate.
[2021-12-05 06:04] LABS: BASOPHILS % (AUTO) 0 % (0-1); EOSINOPHILS % (AUTO) 0.1 % (0-6); HEMATOCRIT 48.3 % (42.0-52.0); LYMPHOCYTES # (AUTO) 0.6 X10'3 (1.1-4.8); MEAN CORPUSCULAR HEMOGLOBIN 28.8 PG (27.0-31.0); MEAN CORPUSCULAR HGB CONC 33.1 g/dL (33.0-36.5); MEAN CORPUSCULAR VOLUME 86.8 FL (78-98); MEAN PLATELET VOLUME 8.7 FL (7.4-10.4); MONOCYTES # (AUTO) 0.5 X10'3 (0-0.9); MONOCYTES % (AUTO) 2.2 % (2-12); NEUTROPHILS % (AUTO) 94.7 % (42-75); PLATELET COUNT 462 X10'3 (140-440); RED BLOOD COUNT 5.57 X10'6 (4.70-6.10); RED CELL DISTRIBUTION WIDTH 13.8 % (11.5-14.5); WHITE BLOOD COUNT 21.2 X10'3 (4.5-11.0)
[2021-12-05 06:20] LABS: ALBUMIN 2.7 G/DL (3.4-5.0); ANION GAP 9 (8-16); BLOOD UREA NITROGEN 55 MG/DL (7-18); BUN/CREATININE RATIO 36.2 (5.4-32.0); C-REACTIVE PROTEIN 1.02 MG/DL (0.0-0.5); CALCIUM 8.8 MG/DL (8.5-10.1); CHLORIDE 99 MMOL/L (99-107); CREATININE 1.52 MG/DL (0.60-1.10); GLUCOSE 207 MG/DL (70-104); POTASSIUM 4.6 MMOL/L (3.5-5.1); SODIUM 132 MMOL/L (135-145); TOTAL CARBON DIOXIDE 24.2 MMOL/L (24-32); eGFR 47 ML/MIN
[2021-12-05 06:22] LABS: APTT 76 SECONDS (22-32)
[2021-12-05] MEDS: metoprolol tartrate 12.5mg (1/2 tablet) PO SCH ×2 (08:00→19:35)
[2021-12-05] MEDS: lisinopril 20mg tablet PO SCH (08:00)
[2021-12-05] MEDS: chlorthalidone 25mg tablet PO SCH (08:03)
[2021-12-05] MEDS: levoTHYROXINE 25mcg tablet PO SCH (08:04)
[2021-12-05] MEDS: atorvastatin 10mg tablet PO SCH (08:04)
[2021-12-05] MEDS: insulin Lispro (HumaLOG) vial - multi-dose SQ SCH ×3 (08:17→20:16)
[2021-12-05] MEDS: pantoprazole 40mg Tablet.DR PO SCH (11:43)
[2021-12-05] MEDS ORDERED: enoxaparin 100mg/ml syringe SQ SCH (12:11)
[2021-12-05] MEDS ORDERED: iohexol 350MG/ML 100ml bottle IV ONE ×2 (12:59→14:38)
[2021-12-05] MEDS ORDERED: fentaNYL/PF 50MCG/1 ML 2ML syringe ONE (12:59)
[2021-12-05] MEDS ORDERED: LIDOcaine 1% (10mg/ml)w/preservative injection 20ml MDV ONE (12:59)
[2021-12-05] MEDS ORDERED: midazolam 1 mg/ML 2ml injection ONE (12:59)
[2021-12-05] MEDS ORDERED: verapamil 2.5 mg/ml inj IV ONE (12:59)
[2021-12-05] MEDS ORDERED: heparin 1,000unit/ml 10ml vial 10 ML ONE (12:59)
[2021-12-05] MEDS ORDERED: iohexol 350 MG/ML 50ML vial IV ONE (12:59)
[2021-12-05] MEDS ORDERED: nitroGLYCERIN-Tridil 50MG/D5W 250 ML IV ONE (13:00)
[2021-12-05 13:52] LABS: PLATELET ESTIMATE INCREASED; TOTAL CELLS COUNTED 100; TOXIC GRANULATION 2+
[2021-12-05 13:53] LABS: LARGE PLATELETS MODERATE; TOXIC VACUOLATION 1+
[2021-12-05] MEDS: enoxaparin 100mg/ml syringe SQ SCH (19:34)
[2021-12-05] MEDS: insulin glargine (Lantus) pen - multi-dose SQ SCH (20:15)
[2021-12-05] MEDS: polyethylene glycol 3350 17gm powd pack PO SCH (20:21)
--- NOTE | 2021-12-05 21:13 | NUR ---
Pt is on HFNC at this time. Paged respiratory to have him switched to CPAP for sleeping. Respiratory called back and said they will be here as soon as they can. Pt is saturating in the high 80s to low 90s. Pt has no complaints at this time and is dozing off. Will continue to assess and intervene as appropriate.
[2021-12-05] MEDS: dexmedetomidine/D5W 100mL 100 ML IV SCH (22:47)
[2021-12-06] VITALS (23 sets, daily range): BP systolic 92–118; BP diastolic 60–73
[2021-12-06 03:12] LABS: BASOPHILS % (AUTO) 0.1 % (0-1); EOSINOPHILS # (AUTO) 0.2 X10'3 (0-0.9); EOSINOPHILS % (AUTO) 0.7 % (0-6); HEMATOCRIT 47.2 % (42.0-52.0); HEMOGLOBIN 15.9 g/dl (14.0-17.9); LYMPHOCYTES # (AUTO) 0.6 X10'3 (1.1-4.8); LYMPHOCYTES % (AUTO) 2.8 % (21-51); MEAN CORPUSCULAR HEMOGLOBIN 28.9 PG (27.0-31.0); MEAN CORPUSCULAR HGB CONC 33.6 g/dL (33.0-36.5); MONOCYTES # (AUTO) 0.3 X10'3 (0-0.9); MONOCYTES % (AUTO) 1.5 % (2-12); NEUTROPHILS % (AUTO) 94.9 % (42-75); PLATELET COUNT 466 X10'3 (140-440); RED BLOOD COUNT 5.49 X10'6 (4.70-6.10); RED CELL DISTRIBUTION WIDTH 13.8 % (11.5-14.5); WHITE BLOOD COUNT 21.1 X10'3 (4.5-11.0)
[2021-12-06 03:28] LABS: D-DIMER 4.16 MG/L FEU (0-0.50)
[2021-12-06 03:30] LABS: ALBUMIN 2.7 G/DL (3.4-5.0); ANION GAP 5 (8-16); BLOOD UREA NITROGEN 51 MG/DL (7-18); BUN/CREATININE RATIO 29.3 (5.4-32.0); C-REACTIVE PROTEIN 0.56 MG/DL (0.0-0.5); CALCIUM 8.8 MG/DL (8.5-10.1); CHLORIDE 101 MMOL/L (99-107); CREATININE 1.74 MG/DL (0.60-1.10); GLUCOSE 173 MG/DL (70-104); POTASSIUM 4.8 MMOL/L (3.5-5.1); SODIUM 133 MMOL/L (135-145); TOTAL CARBON DIOXIDE 26.7 MMOL/L (24-32); eGFR 40 ML/MIN
--- NOTE | 2021-12-06 04:30 | NUR ---
Pt is alert, oriented and a one assist to stand at the side of the bed. Pt had no complaints this shift. Vitals and labs have been stable. HR and BP are increased over last night. No Precedex was given. PICC line flushes and draws on all lumens and is saline locked at this time. Pt is on CPAP, tolerating well. Voids per urinal, urine output is adequate. Will continue to assess and intervene as appropriate.
[2021-12-06] MEDS: clopidogrel 75mg tablet PO SCH ×2 (07:34→07:36)
[2021-12-06] MEDS: atorvastatin 10mg tablet PO SCH (07:34)
[2021-12-06] MEDS: aspirin 81mg, enteric-coated 1 TAB TABLET.DR PO SCH ×2 (07:34→07:35)
[2021-12-06] MEDS: pantoprazole 40mg Tablet.DR PO SCH (07:34)
[2021-12-06] MEDS: levoTHYROXINE 25mcg tablet PO SCH (07:34)
[2021-12-06] MEDS: enoxaparin 100mg/ml syringe SQ SCH ×2 (07:35→19:36)
[2021-12-06] MEDS: metoprolol tartrate 12.5mg (1/2 tablet) PO SCH ×2 (07:37→19:40)
[2021-12-06] MEDS: insulin Lispro (HumaLOG) vial - multi-dose SQ SCH ×3 (07:45→17:53)
[2021-12-06] MEDS: lisinopril 20mg tablet PO SCH (08:00)
[2021-12-06] MEDS: dexamethasone inj 8 MG in dextrose 5%-water 100 ML IV SCH ×2 (08:32→19:40)
[2021-12-06 14:34] LABS: ABG BASE EXCESS -1.6 mmol/L (-2.0-2.0); ABG HCO3 21.6 mmol/L (22.0-26.0); ABG OXYGEN SATURATION 88.1 % (94-97); ABG PCO2 (T) 32.9 mmHg (35.0-48.0); ALLEN'S TEST POSITIVE; FCOHb 0.3 % (0.0-3.9); FLOW 60 L/min; FMetHb 0.4 % (0.0-1.5); FO2Hb 87.5 % (94-97); TOTAL HEMOGLOBIN 17.1 G/dl (14.0-18.0)
[2021-12-06 16:17] LABS: CLARITY,URINE CLEAR (Clear); COLOR,URINE YELLOW (Yellow); GLUCOSE, URINE NEGATIVE (Neg); KETONES,URINE NEGATIVE (Neg); LEUKOCYTE ESTERASE ,URINE NEGATIVE (Neg); NITRITES, URINE NEGATIVE (Neg); OCCULT BLOOD,URINE NEGATIVE (Neg); PROTEIN,URINE NEGATIVE (Neg); UA COLLECTION TYPE NON-SPECIFIED
[2021-12-06] MEDS: polyethylene glycol 3350 17gm powd pack PO SCH (20:19)
[2021-12-06] MEDS: insulin glargine (Lantus) pen - multi-dose SQ SCH (21:10)
[2021-12-07] VITALS (21 sets, daily range): BP systolic 85–116; BP diastolic 56–81
--- NOTE | 2021-12-07 00:33 | NUR ---
Pt is a 61 yo male, admitted 11/30/2021, day 7 of hospitalization, full code, NDA, test COVID + 11/22/2021. COVID isolation in accordance with facility policies and procedures and CDC recommendations. Admitted to ICU 12/01/2021, transferred to [facility]THO 12/01/2021, 12/02/2021 STEMI ALERT, transferred to ICU elevated troponin (peak troponin 12,882) recent troponin 7051. 12/05/2021 Heart Cath. Currently, Pt is afebrile, AAO times 4, moves all extremities, follows all commands. HR 60-70's good pulses, 110/60, ECHO 12/03/2021 shows EF 65%, heart cath shows EF 75%. Generalized trace edema. IVF infusing via CHRIS TL PICC line, f/p, dressing CDI. RR 20's, PO 90-93% on HFNC and CPAP at HS tolerating very well. Breath sounds, grossly diminished, equal symmetrical non labored. Normo-active bowel sounds, soft non tender, large, round obese abdomen, passing flatus. Carb control diet well tolerated. Protonix for GI prophylaxis. Glucose AC/HS, 2100 glucose 170 covered with Night time scale level 6. Routine Lantus 17 units. Voids freely via urinal. Skin intact. Pt remains safe. Addendum: 12/03/21 at 2254 by Seth Henderson RN Updated pt's .
[2021-12-07 02:43] LABS: BASOPHILS % (AUTO) 0 % (0-1); EOSINOPHILS # (AUTO) 0.2 X10'3 (0-0.9); EOSINOPHILS % (AUTO) 0.7 % (0-6); HEMATOCRIT 49.7 % (42.0-52.0); HEMOGLOBIN 16.4 g/dl (14.0-17.9); LYMPHOCYTES # (AUTO) 0.6 X10'3 (1.1-4.8); LYMPHOCYTES % (AUTO) 2.5 % (21-51); MEAN CORPUSCULAR HEMOGLOBIN 28.4 PG (27.0-31.0); MEAN CORPUSCULAR HGB CONC 32.9 g/dL (33.0-36.5); MEAN CORPUSCULAR VOLUME 86.3 FL (78-98); MEAN PLATELET VOLUME 8.8 FL (7.4-10.4); MONOCYTES # (AUTO) 0.3 X10'3 (0-0.9); MONOCYTES % (AUTO) 1.1 % (2-12); NEUTROPHILS # (AUTO) 21.9 X10'3 (1.8-7.7); NEUTROPHILS % (AUTO) 95.7 % (42-75); PLATELET COUNT 463 X10'3 (140-440); RED BLOOD COUNT 5.76 X10'6 (4.70-6.10); RED CELL DISTRIBUTION WIDTH 13.9 % (11.5-14.5); WHITE BLOOD COUNT 22.9 X10'3 (4.5-11.0)
[2021-12-07 03:07] LABS: D-DIMER 5.02 MG/L FEU (0-0.50)
[2021-12-07 03:09] LABS: ALBUMIN 2.8 G/DL (3.4-5.0); ANION GAP 7 (8-16); BLOOD UREA NITROGEN 50 MG/DL (7-18); BUN/CREATININE RATIO 38.2 (5.4-32.0); C-REACTIVE PROTEIN 0.29 MG/DL (0.0-0.5); CALCIUM 8.9 MG/DL (8.5-10.1); CHLORIDE 100 MMOL/L (99-107); CREATININE 1.31 MG/DL (0.60-1.10); GLUCOSE 170 MG/DL (70-104); POTASSIUM 5.1 MMOL/L (3.5-5.1); SODIUM 132 MMOL/L (135-145); TOTAL CARBON DIOXIDE 24.7 MMOL/L (24-32); eGFR 55 ML/MIN
[2021-12-07 03:49] LABS: TOTAL CELLS COUNTED 100
[2021-12-07 03:50] LABS: PLATELET ESTIMATE INCREASED
[2021-12-07 03:51] LABS: TOXIC GRANULATION 1+; TOXIC VACUOLATION FEW
[2021-12-07 03:52] LABS: LARGE PLATELETS FEW
[2021-12-07] MEDS: pantoprazole 40mg Tablet.DR PO SCH (07:49)
[2021-12-07] MEDS: lisinopril 20mg tablet PO SCH (08:11)
[2021-12-07] MEDS: dexamethasone inj 8 MG in dextrose 5%-water 100 ML IV SCH ×2 (08:11→20:00)
[2021-12-07] MEDS: atorvastatin 10mg tablet PO SCH (08:11)
[2021-12-07] MEDS: levoTHYROXINE 25mcg tablet PO SCH (08:11)
[2021-12-07] MEDS: clopidogrel 75mg tablet PO SCH (08:11)
[2021-12-07] MEDS: aspirin 81mg, enteric-coated 1 TAB TABLET.DR PO SCH (08:12)
[2021-12-07] MEDS: metoprolol tartrate 12.5mg (1/2 tablet) PO SCH (08:12)
[2021-12-07] MEDS: enoxaparin 100mg/ml syringe SQ SCH (08:12)
[2021-12-07] MEDS: insulin Lispro (HumaLOG) vial - multi-dose SQ SCH ×3 (08:31→18:15)
[2021-12-07 08:48] LABS: ABG HCO3 19.6 mmol/L (22.0-26.0); ABG OXYGEN SATURATION 94.7 % (94-97); ABG PCO2 (T) 31.3 mmHg (35.0-48.0); ABG PO2 (T) 69.8 mmHg (75.0-100.0); ALLEN'S TEST POSITIVE; FCOHb 0.2 % (0.0-3.9); FMetHb 0.3 % (0.0-1.5); FO2Hb 94.2 % (94-97); PATIENT TEMPERATURE 35.9; TOTAL HEMOGLOBIN 17.7 G/dl (14.0-18.0)
[2021-12-07] MEDS: metoprolol tartrate 25mg tablet PO SCH (20:00)
[2021-12-07] MEDS: CefTRIAXone/D5W-Rocephin 1gm 50 ML IV SCH (20:50)
[2021-12-07] MEDS: polyethylene glycol 3350 17gm powd pack PO SCH (21:00)
[2021-12-07] MEDS ORDERED: vancomycin/NS 1 GM ADD-VANTAGE 250 ML IV SCH (21:30)
[2021-12-07] MEDS: vancomycin/NS 1 GM ADD-VANTAGE 250 ML IV SCH (22:00)
[2021-12-07] MEDS: LORazepam 2 mg/ml vial IV PRN (22:22)
[2021-12-07] MEDS: acetaminophen 325mg tablet PO PRN (22:25)
[2021-12-07] MEDS: insulin glargine (Lantus) pen - multi-dose SQ SCH (23:54)
[2021-12-08 01:09] VITALS: BP 98/54
[2021-12-08 02:00] VITALS: BP 109/69
[2021-12-08 06:00] VITALS: BP 104/63
--- NOTE | 2021-12-08 09:08 | NUR ---
Pulse ox applied at this time, patient found to be in the low 70's. High flow increased to 100%- RT and lithopone charger notified.
[2021-12-08] MEDS: dexamethasone inj 8 MG in dextrose 5%-water 100 ML IV SCH ×2 (09:33→19:30)
[2021-12-08] MEDS: vancomycin/NS 1 GM ADD-VANTAGE 250 ML IV SCH ×2 (09:33→21:47)
[2021-12-08] MEDS: pantoprazole 40mg Tablet.DR PO SCH (09:33)
[2021-12-08] MEDS: CefTRIAXone/D5W-Rocephin 1gm 50 ML IV SCH (09:33)
[2021-12-08] MEDS: atorvastatin 10mg tablet PO SCH (09:34)
[2021-12-08] MEDS: aspirin 81mg, enteric-coated 1 TAB TABLET.DR PO SCH (09:34)
[2021-12-08] MEDS: clopidogrel 75mg tablet PO SCH (09:43)
[2021-12-08] MEDS: metoprolol tartrate 25mg tablet PO SCH ×2 (09:44→19:30)
[2021-12-08] MEDS: lisinopril 20mg tablet PO SCH (09:44)
[2021-12-08] MEDS: levoTHYROXINE 25mcg tablet PO SCH (09:50)
[2021-12-08 10:00] VITALS: BP 100/60
[2021-12-08] MEDS: insulin Lispro (HumaLOG) vial - multi-dose SQ SCH ×2 (10:45→19:30)
[2021-12-08 12:41] LABS: BASOPHILS # (AUTO) 0.1 X10'3 (0-0.2); BASOPHILS % (AUTO) 0.2 % (0-1); EOSINOPHILS # (AUTO) 0.1 X10'3 (0-0.9); EOSINOPHILS % (AUTO) 0.2 % (0-6); HEMATOCRIT 47.5 % (42.0-52.0); HEMOGLOBIN 16.1 g/dl (14.0-17.9); LYMPHOCYTES # (AUTO) 0.5 X10'3 (1.1-4.8); LYMPHOCYTES % (AUTO) 1.8 % (21-51); MEAN CORPUSCULAR HEMOGLOBIN 29.1 PG (27.0-31.0); MEAN CORPUSCULAR HGB CONC 33.9 g/dL (33.0-36.5); MEAN CORPUSCULAR VOLUME 85.8 FL (78-98); MEAN PLATELET VOLUME 8.7 FL (7.4-10.4); MONOCYTES # (AUTO) 0.4 X10'3 (0-0.9); MONOCYTES % (AUTO) 1.6 % (2-12); NEUTROPHILS # (AUTO) 24.4 X10'3 (1.8-7.7); NEUTROPHILS % (AUTO) 96.2 % (42-75); PLATELET COUNT 436 X10'3 (140-440); RED BLOOD COUNT 5.54 X10'6 (4.70-6.10); RED CELL DISTRIBUTION WIDTH 13.8 % (11.5-14.5)
[2021-12-08 12:53] LABS: WHITE BLOOD COUNT 25.4 X10'3 (4.5-11.0)
[2021-12-08 12:59] LABS: D-DIMER 3.84 MG/L FEU (0-0.50)
[2021-12-08 13:11] LABS: ALBUMIN 2.7 G/DL (3.4-5.0); ANION GAP 9 (8-16); BLOOD UREA NITROGEN 70 MG/DL (7-18); BUN/CREATININE RATIO 43.5 (5.4-32.0); C-REACTIVE PROTEIN 0.14 MG/DL (0.0-0.5); CALCIUM 8.4 MG/DL (8.5-10.1); CHLORIDE 100 MMOL/L (99-107); CREATININE 1.61 MG/DL (0.60-1.10); GLUCOSE 192 MG/DL (70-104); LARGE PLATELETS FEW; PLATELET ESTIMATE NORMAL; POTASSIUM 5.7 MMOL/L (3.5-5.1); SODIUM 133 MMOL/L (135-145); TOTAL CARBON DIOXIDE 24.1 MMOL/L (24-32); TOTAL CELLS COUNTED 100; eGFR 44 ML/MIN
--- NOTE | 2021-12-08 13:53 | NUR ---
Notified MD Sherwood of critical WBC at this time. Talked to Mary, she is worried and is requesting an update from the provider. Paged.
--- NOTE | 2021-12-08 15:30 | NUR ---
Reassessment: Pt PO intake ~69% overall of regular meals w/ double protein BIDBD and smoothies BIDBL, though PO intake has declined from ~75% 12/04 to ~35% since 12/07. Intake partially meeting estimated nutritional needs. Pt stated they did not like the food per MD note. Due to PO decline, stop double protein BIDBD. Pt could benefit from Ensure Enlive TIDWM to help meet kcal/protein needs; MD notified. Pt currently on 50L HFNC per MD notes. Noted A1C 7.6 this admit though no hx of DM per EMR. RD d/w RN regarding pt DM awareness; RN stated they were unsure if pt was aware of DM. DM ed not appropriate at this time given pt respiratory status and possible unawareness of condition. LBM 12/08, routine bowel care available though pt refused 12/07. Will continue to monitor. Recommendations: 1. Continue Regular diet as tolerated 2. Ensure Enlive TIDWM; pending MD approval 3. Smoothies BIDBL 4. Encourage PO intake 5. Bowel care per rx 6. Scaled wt this admit, subsequent weekly wts 7. DM education deferred until appropriate; pending pt notification by Addendum: 12/08/21 at 1531 by Cody Gonzalez - Manager Transmission RD Amended: Links added. Addendum: 12/08/21 at [address] MÓNICA has reviewed and approves of above note.
[2021-12-08 18:00] VITALS: BP 117/68
[2021-12-08] MEDS: lactose-reduced food (Ensure Enlive) - 237ml bottle PO SCH (18:00)
--- NOTE | 2021-12-08 18:32 | NUR ---
Patient in room [facility]TH[facility] 4024. I have received report from Serena PRECIADO and had the opportunity to ask questions and assume patient care.
[2021-12-08] MEDS: lactobacillus rhamnosus 10,000 MMU CELLS/CAPSULE PO SCH (19:30)
[2021-12-08] MEDS: polyethylene glycol 3350 17gm powd pack PO SCH (19:51)
[2021-12-08] MEDS: SODIUM ZIRCONIUM CYCLOSILICATE 10 GM POWD.PACK PO SCH (21:16)
[2021-12-08] MEDS: insulin glargine (Lantus) pen - multi-dose SQ SCH (21:46)
[2021-12-08 22:00] VITALS: BP 110/71
[2021-12-09] VITALS (7 sets, daily range): BP systolic 93–124; BP diastolic 51–64
[2021-12-09 06:19] LABS: ALBUMIN 2.7 G/DL (3.4-5.0); ANION GAP 11 (8-16); BLOOD UREA NITROGEN 73 MG/DL (7-18); BUN/CREATININE RATIO 47.1 (5.4-32.0); C-REACTIVE PROTEIN 0.08 MG/DL (0.0-0.5); CALCIUM 8.6 MG/DL (8.5-10.1); CHLORIDE 98 MMOL/L (99-107); CREATININE 1.55 MG/DL (0.60-1.10); GLUCOSE 176 MG/DL (70-104); POTASSIUM 5.4 MMOL/L (3.5-5.1); SODIUM 132 MMOL/L (135-145); TOTAL CARBON DIOXIDE 23.1 MMOL/L (24-32); eGFR 46 ML/MIN
[2021-12-09 06:20] LABS: D-DIMER 3.07 MG/L FEU (0-0.50)
[2021-12-09 06:24] LABS: BASOPHILS % (AUTO) 0.1 % (0-1); EOSINOPHILS % (AUTO) 0.1 % (0-6); HEMATOCRIT 44.8 % (42.0-52.0); LYMPHOCYTES # (AUTO) 0.6 X10'3 (1.1-4.8); LYMPHOCYTES % (AUTO) 2.4 % (21-51); MEAN CORPUSCULAR HEMOGLOBIN 28.8 PG (27.0-31.0); MEAN CORPUSCULAR HGB CONC 33.6 g/dL (33.0-36.5); MEAN CORPUSCULAR VOLUME 85.6 FL (78-98); MEAN PLATELET VOLUME 8.8 FL (7.4-10.4); MONOCYTES # (AUTO) 0.7 X10'3 (0-0.9); MONOCYTES % (AUTO) 2.9 % (2-12); NEUTROPHILS # (AUTO) 23.7 X10'3 (1.8-7.7); NEUTROPHILS % (AUTO) 94.5 % (42-75); PLATELET COUNT 410 X10'3 (140-440); RED BLOOD COUNT 5.23 X10'6 (4.70-6.10); RED CELL DISTRIBUTION WIDTH 13.7 % (11.5-14.5)
--- NOTE | 2021-12-09 06:24 | NUR ---
Problems reprioritized. Patient report given, questions answered & plan of care reviewed with Serena PRECIADO.
[2021-12-09 07:36] LABS: PLATELET ESTIMATE NORMAL; TOTAL CELLS COUNTED 100
[2021-12-09] MEDS: lactose-reduced food (Ensure Enlive) - 237ml bottle PO SCH ×3 (08:00→18:00)
[2021-12-09] MEDS: CefTRIAXone/D5W-Rocephin 1gm 50 ML IV SCH (08:04)
[2021-12-09] MEDS: dexamethasone inj 8 MG in dextrose 5%-water 100 ML IV SCH (08:04)
[2021-12-09] MEDS: levoTHYROXINE 25mcg tablet PO SCH (08:05)
[2021-12-09] MEDS: lactobacillus rhamnosus 10,000 MMU CELLS/CAPSULE PO SCH ×2 (08:05→20:29)
[2021-12-09] MEDS: pantoprazole 40mg Tablet.DR PO SCH (08:05)
[2021-12-09] MEDS: clopidogrel 75mg tablet PO SCH (08:05)
[2021-12-09] MEDS: atorvastatin 10mg tablet PO SCH (08:05)
[2021-12-09] MEDS: lisinopril 20mg tablet PO SCH (08:05)
[2021-12-09] MEDS: metoprolol tartrate 25mg tablet PO SCH ×2 (08:05→20:00)
[2021-12-09] MEDS: aspirin 81mg, enteric-coated 1 TAB TABLET.DR PO SCH (08:05)
[2021-12-09] MEDS: insulin Lispro (HumaLOG) vial - multi-dose SQ SCH ×3 (09:01→18:49)
[2021-12-09] MEDS ORDERED: VANCOMYCIN LEVEL IV ONE (09:30)
[2021-12-09] MEDS: vancomycin/NS 1 GM ADD-VANTAGE 250 ML IV SCH (10:11)
[2021-12-09] MEDS: LORazepam 2 mg/ml vial IV PRN (15:30)
[2021-12-09] MEDS ORDERED: enoxaparin 50mg/0.5ml (from 3ml vial) syringe SUBCUT SCH (16:20)
[2021-12-09] MEDS: SODIUM ZIRCONIUM CYCLOSILICATE 10 GM POWD.PACK PO SCH (20:30)
--- NOTE | 2021-12-09 20:31 | NUR ---
I had to increase his oxygen level up to 55liters on the high flow machine due to low oxygen levels in the 60's that did not recover after putting his NRB mask on, after about 5 minutes of nrb on and 55 liters high flow then his oxygen saturation went up to 90%. Reinforced the need of the patient to keep his nrb mask on. Informed the RT of the situation and she said the machine can to up to 80liters oxygen safely.
[2021-12-09] MEDS: polyethylene glycol 3350 17gm powd pack PO SCH (21:00)
[2021-12-09] MEDS: dexamethasone inj 6 MG in dextrose 5%-water 100 ML IV SCH (21:22)
[2021-12-09] MEDS: insulin glargine (Lantus) pen - multi-dose SQ SCH (21:23)
[2021-12-09] MEDS: HYDROcodone/acetaminophen 5mg/325mg tablet PO PRN (22:10)
[2021-12-10 02:00] VITALS: BP 99/59
[2021-12-10 05:52] LABS: BASOPHILS % (AUTO) 0.1 % (0-1); EOSINOPHILS % (AUTO) 0.1 % (0-6); HEMATOCRIT 42.1 % (42.0-52.0); HEMOGLOBIN 14.2 g/dl (14.0-17.9); LYMPHOCYTES # (AUTO) 0.7 X10'3 (1.1-4.8); LYMPHOCYTES % (AUTO) 2.4 % (21-51); MEAN CORPUSCULAR HGB CONC 33.8 g/dL (33.0-36.5); MEAN CORPUSCULAR VOLUME 85.8 FL (78-98); MONOCYTES # (AUTO) 0.8 X10'3 (0-0.9); NEUTROPHILS # (AUTO) 25.6 X10'3 (1.8-7.7); NEUTROPHILS % (AUTO) 94.4 % (42-75); PLATELET COUNT 360 X10'3 (140-440); RED BLOOD COUNT 4.91 X10'6 (4.70-6.10); RED CELL DISTRIBUTION WIDTH 13.5 % (11.5-14.5)
[2021-12-10 05:56] LABS: WHITE BLOOD COUNT 27.1 X10'3 (4.5-11.0)
[2021-12-10 06:05] LABS: ALBUMIN 2.6 G/DL (3.4-5.0); ANION GAP 8 (8-16); BLOOD UREA NITROGEN 79 MG/DL (7-18); BUN/CREATININE RATIO 49.4 (5.4-32.0); C-REACTIVE PROTEIN 0.08 MG/DL (0.0-0.5); CALCIUM 8.4 MG/DL (8.5-10.1); CHLORIDE 100 MMOL/L (99-107); GLUCOSE 139 MG/DL (70-104); POTASSIUM 5.5 MMOL/L (3.5-5.1); SODIUM 132 MMOL/L (135-145); TOTAL CARBON DIOXIDE 23.7 MMOL/L (24-32); eGFR 44 ML/MIN
--- NOTE | 2021-12-10 06:07 | NUR ---
Doctor Renetta notified of critical WBC 27.1 result. No new orders at this time.
[2021-12-10 06:11] LABS: TOTAL CELLS COUNTED 100
[2021-12-10 06:13] LABS: PLATELET ESTIMATE NORMAL
[2021-12-10 06:14] LABS: ANISOCYTOSIS 1+; LARGE PLATELETS FEW
--- NOTE | 2021-12-10 06:45 | NUR ---
Problems reprioritized. Patient report given, questions answered & plan of care reviewed with Josep PRECIADO.
[2021-12-10 06:46] LABS: D-DIMER 2.93 MG/L FEU (0-0.50)
[2021-12-10] MEDS: aspirin 81mg, enteric-coated 1 TAB TABLET.DR PO SCH (07:55)
[2021-12-10] MEDS: clopidogrel 75mg tablet PO SCH (07:55)
[2021-12-10] MEDS: LORazepam 2 mg/ml vial IV PRN ×2 (07:55→16:09)
[2021-12-10] MEDS: metoprolol tartrate 25mg tablet PO SCH ×2 (07:55→20:00)
[2021-12-10] MEDS: levoTHYROXINE 25mcg tablet PO SCH (07:56)
[2021-12-10] MEDS: pantoprazole 40mg Tablet.DR PO SCH (07:56)
[2021-12-10] MEDS: lisinopril 20mg tablet PO SCH (07:56)
[2021-12-10] MEDS: atorvastatin 10mg tablet PO SCH (07:56)
[2021-12-10] MEDS: HYDROcodone/acetaminophen 5mg/325mg tablet PO PRN ×3 (07:56→21:09)
[2021-12-10] MEDS: lactobacillus rhamnosus 10,000 MMU CELLS/CAPSULE PO SCH ×2 (07:57→20:45)
[2021-12-10] MEDS: lactose-reduced food (Ensure Enlive) - 237ml bottle PO SCH ×3 (08:00→18:00)
[2021-12-10] MEDS: dexamethasone inj 6 MG in dextrose 5%-water 100 ML IV SCH ×2 (08:01→20:45)
--- NOTE | 2021-12-10 12:28 | NUR ---
DM consult: Pt with A1c 7.6%, still pending confirmation that pt has been made aware of DM at this time. DM education deferred until pt more stable and has received official DM dx by physician. Addendum: 12/10/21 at [address] Amended: Links added.
[2021-12-10 18:00] VITALS: BP 129/69
[2021-12-10] MEDS: insulin Lispro (HumaLOG) vial - multi-dose SQ SCH (19:07)
[2021-12-10] MEDS ORDERED: enoxaparin 80mg/0.8ml syringe SUBCUT SCH (20:00)
[2021-12-10] MEDS: SODIUM ZIRCONIUM CYCLOSILICATE 10 GM POWD.PACK PO SCH (20:44)
[2021-12-10 21:00] VITALS: BP 99/50
[2021-12-10] MEDS: insulin glargine (Lantus) pen - multi-dose SQ SCH (21:23)
[2021-12-10] MEDS: polyethylene glycol 3350 17gm powd pack PO SCH (21:28)
[2021-12-10 22:00] VITALS: BP 89/51
[2021-12-11] VITALS (21 sets, daily range): BP systolic 78–139; BP diastolic 40–86
[2021-12-11] MEDS: LORazepam 2 mg/ml vial IV PRN ×2 (00:54→14:56)
[2021-12-11] MEDS ORDERED: normal saline 250ml IV soln 250 ML IV ONE (02:00)
[2021-12-11 02:11] LABS: ABG BASE EXCESS -9.3 mmol/L (-2.0-2.0); ABG HCO3 16.2 mmol/L (22.0-26.0); ABG OXYGEN SATURATION 95.3 % (94-97); ABG PCO2 (T) 33.7 mmHg (35.0-48.0); ABG PO2 (T) 83.1 mmHg (75.0-100.0); ALLEN'S TEST POSITIVE; FCOHb 0.5 % (0.0-3.9); FMetHb 0.2 % (0.0-1.5); FO2Hb 94.6 % (94-97); PATIENT TEMPERATURE 36.5; RESPIRATORY RATE 10 b/min; TOTAL HEMOGLOBIN 13.8 G/dl (14.0-18.0)
[2021-12-11 02:57] LABS: BASOPHILS # (AUTO) 0.1 X10'3 (0-0.2); BASOPHILS % (AUTO) 0.2 % (0-1); EOSINOPHILS % (AUTO) 0 % (0-6); HEMATOCRIT 37.5 % (42.0-52.0); HEMOGLOBIN 12.4 g/dl (14.0-17.9); LYMPHOCYTES # (AUTO) 0.5 X10'3 (1.1-4.8); LYMPHOCYTES % (AUTO) 1.7 % (21-51); MEAN CORPUSCULAR HEMOGLOBIN 28.3 PG (27.0-31.0); MEAN CORPUSCULAR HGB CONC 32.9 g/dL (33.0-36.5); MEAN PLATELET VOLUME 9.2 FL (7.4-10.4); MONOCYTES # (AUTO) 0.8 X10'3 (0-0.9); MONOCYTES % (AUTO) 2.7 % (2-12); NEUTROPHILS # (AUTO) 28.5 X10'3 (1.8-7.7); NEUTROPHILS % (AUTO) 95.4 % (42-75); PLATELET COUNT 355 X10'3 (140-440); RED BLOOD COUNT 4.36 X10'6 (4.70-6.10); RED CELL DISTRIBUTION WIDTH 13.4 % (11.5-14.5)
--- NOTE | 2021-12-11 02:57 | NUR ---
12/10/21 2300 Respiratory came twice and ask pt to put cpap. Pt refused AT 0110 CHARGE NURSE WAS DOING ROUND AND FOUND PT UNRESPONSIVE. CALLED FOR HELP. ARRIVED AT THE ROOM AT , RAPID RESPONSE CALLED. 0110 VITAL WERE 122/77 HR 63 SPO2 80, TEMP 97.6 0115 BS WAS 190 0120 RAPID RESPONSE TEAM ARRIVED ORDER STAT CT. 0202 RESPIRATORY CAME AND DRAW ABGS. RESULT PENDING. 0215 85/47 hr 53 OXY 95 T97.6 0215 250ml bolus ns administered 0230 95/53 HR 52 [address] stat 0245 Lab sent 0306 Lab called report critical value white count 29.9
[2021-12-11 03:04] LABS: D-DIMER 3.03 MG/L FEU (0-0.50)
[2021-12-11 03:05] LABS: WHITE BLOOD COUNT 29.9 X10'3 (4.5-11.0)
--- NOTE | 2021-12-11 03:12 | NUR ---
0310 lab called report lactic acid 4.9 Dr notified
[2021-12-11 03:14] LABS: ALBUMIN 2.4 G/DL (3.4-5.0); ANION GAP 12 (8-16); BLOOD UREA NITROGEN 101 MG/DL (7-18); BUN/CREATININE RATIO 39.3 (5.4-32.0); CALCIUM 7.8 MG/DL (8.5-10.1); CHLORIDE 97 MMOL/L (99-107); CREATININE 2.57 MG/DL (0.60-1.10); GLUCOSE 215 MG/DL (70-104); POTASSIUM 5.7 MMOL/L (3.5-5.1); SODIUM 129 MMOL/L (135-145); TOTAL CARBON DIOXIDE 19.7 MMOL/L (24-32); eGFR 25 ML/MIN
[2021-12-11 03:19] LABS: C-REACTIVE PROTEIN < 0.05 MG/DL (0.0-0.5)
--- NOTE | 2021-12-11 03:43 | NUR ---
0332 Dr Jackson called back and order 250 ml bolus, blood culture and procalitonin
[2021-12-11 04:44] LABS: ANISOCYTOSIS 1+; PLATELET ESTIMATE NORMAL; TOTAL CELLS COUNTED 100
[2021-12-11] MEDS ORDERED: NORepinephrine 8mg/ 250ml NS 250 ML IV ONE (04:44)
--- NOTE | 2021-12-11 04:56 | NUR ---
0405 PT TRANSFER TO ICU.
[2021-12-11] MEDS ORDERED: albumin (human) 25% 100 ML IV solution IV ONE (05:10)
[2021-12-11] MEDS ORDERED: albumin (Human) 5% 250ml 250 ML IV ONE (05:10)
[2021-12-11] MEDS ORDERED: dextrose 50%-water 50ml dispensing syringe IV ONE ×2 (05:15→18:50)
[2021-12-11] MEDS ORDERED: insulin regular, human 10 units/0.1 ml syringe IV ONE ×2 (05:15→18:50)
[2021-12-11] MEDS ORDERED: albuterol 2.5 MG/3 ML nebule NEB ONE (05:15)
[2021-12-11] MEDS ORDERED: calcium chloride 100 MG/1 ML inj IV ONE (05:15)
[2021-12-11] MEDS ORDERED: sodium polystyrene sulfonate 15gm/60ml oral suspension PO ONE (05:15)
[2021-12-11] MEDS: HYDROcodone/acetaminophen 5mg/325mg tablet PO PRN ×2 (06:03→14:57)
[2021-12-11] MEDS: pantoprazole 40mg Tablet.DR PO SCH (07:30)
[2021-12-11] MEDS: clopidogrel 75mg tablet PO SCH (08:00)
[2021-12-11] MEDS: dexamethasone inj 6 MG in dextrose 5%-water 100 ML IV SCH ×2 (08:00→20:46)
[2021-12-11] MEDS: piperacillin/tazo 3.375gm/50ml 50 ML IV SCH ×2 (08:00→15:02)
[2021-12-11] MEDS: SODIUM ZIRCONIUM CYCLOSILICATE 10 GM POWD.PACK PO SCH (08:00)
[2021-12-11] MEDS: atorvastatin 10mg tablet PO SCH (08:00)
[2021-12-11] MEDS: levoTHYROXINE 25mcg tablet PO SCH (08:00)
[2021-12-11] MEDS: lactose-reduced food (Ensure Enlive) - 237ml bottle PO SCH ×3 (08:00→18:00)
[2021-12-11] MEDS: aspirin 81mg, enteric-coated 1 TAB TABLET.DR PO SCH (08:00)
[2021-12-11] MEDS: lactobacillus rhamnosus 10,000 MMU CELLS/CAPSULE PO SCH ×2 (08:00→20:45)
[2021-12-11] MEDS: bisacodyl 10mg suppository rectal RC SCH (09:35)
[2021-12-11 09:36] LABS: ALANINE AMINOTRANSFERASE 133 U/L (12-78); ALBUMIN/GLOBULIN RATIO 1.2 (1.1-1.5); ALKALINE PHOSPHATASE 90 IU/L (46-116); ANION GAP 9 (8-16); ASPARTATE AMINO TRANSFERASE 46 U/L (10-37); BILIRUBIN,TOTAL 0.6 MG/DL (0.1-1.0); BLOOD UREA NITROGEN 107 MG/DL (7-18); BUN/CREATININE RATIO 42.6 (5.4-32.0); CALCIUM 7.4 MG/DL (8.5-10.1); CHLORIDE 100 MMOL/L (99-107); CREATININE 2.51 MG/DL (0.60-1.10); GLUCOSE 213 MG/DL (70-104); MAGNESIUM 3.2 MG/DL (1.5-2.4); PHOSPHORUS 7.4 MG/DL (2.3-4.5); POTASSIUM 5.5 MMOL/L (3.5-5.1); SODIUM 131 MMOL/L (135-145); TOTAL CARBON DIOXIDE 21.9 MMOL/L (24-32); TOTAL PROTEIN 5.5 G/DL (6.4-8.2); eGFR 26 ML/MIN
[2021-12-11] MEDS: normal saline 1000ml 1,000 ML IV SCH ×2 (09:55→20:46)
[2021-12-11] MEDS ORDERED: LIDOcaine 2% 10ml TOPICAL JELLY (Urojet) TP ONE (09:55)
[2021-12-11] MEDS ORDERED: heparin 25,000 UNIT/250ml bag 250 ML IV SCH (10:00)
[2021-12-11] MEDS ORDERED: heparin 10,000 units/1 ML INJ IV PRN (10:00)
[2021-12-11] MEDS ORDERED: heparin 10,000 units/1 ML INJ IV ONE (10:00)
[2021-12-11 11:33] LABS: BASOPHILS % (AUTO) 0 % (0-1); EOSINOPHILS % (AUTO) 0 % (0-6); HEMATOCRIT 32.5 % (42.0-52.0); HEMOGLOBIN 10.8 g/dl (14.0-17.9); LYMPHOCYTES # (AUTO) 0.8 X10'3 (1.1-4.8); LYMPHOCYTES % (AUTO) 2.4 % (21-51); MEAN CORPUSCULAR HEMOGLOBIN 28.6 PG (27.0-31.0); MEAN CORPUSCULAR HGB CONC 33.2 g/dL (33.0-36.5); MEAN CORPUSCULAR VOLUME 86.4 FL (78-98); MEAN PLATELET VOLUME 9.5 FL (7.4-10.4); MONOCYTES # (AUTO) 1.5 X10'3 (0-0.9); MONOCYTES % (AUTO) 4.7 % (2-12); NEUTROPHILS # (AUTO) 28.8 X10'3 (1.8-7.7); NEUTROPHILS % (AUTO) 92.9 % (42-75); PLATELET COUNT 345 X10'3 (140-440); RED BLOOD COUNT 3.76 X10'6 (4.70-6.10); RED CELL DISTRIBUTION WIDTH 13.5 % (11.5-14.5)
[2021-12-11 11:37] LABS: TOTAL PROTEIN,URINE RANDOM 32.3 MG/DL
[2021-12-11 11:40] LABS: CLARITY,URINE SLIGHTLY CLOUDY (Clear); COLOR,URINE YELLOW (Yellow); GLUCOSE, URINE NEGATIVE (Neg); KETONES,URINE NEGATIVE (Neg); LEUKOCYTE ESTERASE ,URINE NEGATIVE (Neg); NITRITES, URINE NEGATIVE (Neg); OCCULT BLOOD,URINE NEGATIVE (Neg); PROTEIN,URINE NEGATIVE (Neg); UROBILINOGEN,URINE 0.2 E.U/dL (0.2-1.0)
[2021-12-11 11:41] LABS: UA COLLECTION TYPE FOLEY CATH
[2021-12-11 11:44] LABS: APTT 28 SECONDS (22-32)
[2021-12-11 11:54] LABS: AMORPHOUS URATES 1+; BACTERIA,URINE NONE SEEN /HPF (Neg); HYALINE CASTS 0-3 /LPF (NEGATIVE); RBC,URINE NONE SEEN /HPF (0-2); SQUAMOUS EPITHELIAL CELL,UR NONE SEEN /LPF (FEW); WBC,URINE NONE SEEN /HPF (0-4)
[2021-12-11 12:19] LABS: UA EOSINOPHILS NO EOS /HPF
[2021-12-11] MEDS: insulin Lispro (HumaLOG) vial - multi-dose SQ SCH ×2 (13:30→23:29)
[2021-12-11] MEDS: NORepinephrine 8mg/ 250ml NS 250 ML IV SCH ×2 (15:53→21:02)
[2021-12-11 15:59] LABS: BASOPHILS % (AUTO) 0.1 % (0-1); EOSINOPHILS % (AUTO) 0.1 % (0-6); HEMATOCRIT 31.8 % (42.0-52.0); HEMOGLOBIN 10.6 g/dl (14.0-17.9); LYMPHOCYTES # (AUTO) 0.6 X10'3 (1.1-4.8); LYMPHOCYTES % (AUTO) 1.7 % (21-51); MEAN CORPUSCULAR HEMOGLOBIN 28.6 PG (27.0-31.0); MEAN CORPUSCULAR HGB CONC 33.3 g/dL (33.0-36.5); MEAN CORPUSCULAR VOLUME 86.2 FL (78-98); MEAN PLATELET VOLUME 9.2 FL (7.4-10.4); MONOCYTES # (AUTO) 1.2 X10'3 (0-0.9); MONOCYTES % (AUTO) 3.6 % (2-12); NEUTROPHILS # (AUTO) 31.1 X10'3 (1.8-7.7); NEUTROPHILS % (AUTO) 94.5 % (42-75); PLATELET COUNT 319 X10'3 (140-440); RED CELL DISTRIBUTION WIDTH 13.6 % (11.5-14.5)
[2021-12-11 16:03] LABS: WHITE BLOOD COUNT 32.8 X10'3 (4.5-11.0)
[2021-12-11 16:15] LABS: ALANINE AMINOTRANSFERASE 152 U/L (12-78); ALBUMIN 2.7 G/DL (3.4-5.0); ALKALINE PHOSPHATASE 91 IU/L (46-116); ANION GAP 8 (8-16); ASPARTATE AMINO TRANSFERASE 54 U/L (10-37); BILIRUBIN,TOTAL 0.8 MG/DL (0.1-1.0); BLOOD UREA NITROGEN 103 MG/DL (7-18); CHLORIDE 102 MMOL/L (99-107); CREATININE 2.29 MG/DL (0.60-1.10); GLUCOSE 191 MG/DL (70-104); MAGNESIUM 3.3 MG/DL (1.5-2.4); PHOSPHORUS 5.8 MG/DL (2.3-4.5); POTASSIUM 5.6 MMOL/L (3.5-5.1); SODIUM 132 MMOL/L (135-145); TOTAL CARBON DIOXIDE 22.2 MMOL/L (24-32); TOTAL PROTEIN 5.4 G/DL (6.4-8.2); eGFR 29 ML/MIN
[2021-12-11] MEDS ORDERED: calcium gluconate inj. 1 GM in normal saline 100ml IV soln 100 ML IV ONE (18:50)
[2021-12-11] MEDS ORDERED: CALCIUM GLUC 1gm/50ml NACL,iso 100 ML IV ONE (19:25)
[2021-12-11] MEDS: polyethylene glycol 3350 17gm powd pack PO SCH (20:45)
[2021-12-11] MEDS: insulin glargine (Lantus) pen - multi-dose SQ SCH (21:30)
[2021-12-12] VITALS (22 sets, daily range): BP systolic 80–135; BP diastolic 40–86
[2021-12-12] MEDS: piperacillin/tazo 3.375gm/50ml 50 ML IV SCH ×2 (00:07→08:03)
[2021-12-12] MEDS: LORazepam 2 mg/ml vial IV PRN (00:08)
[2021-12-12] MEDS: HYDROcodone/acetaminophen 5mg/325mg tablet PO PRN (00:08)
[2021-12-12] MEDS: normal saline 1000ml 1,000 ML IV SCH ×3 (01:15→16:22)
[2021-12-12 02:06] LABS: BASOPHILS % (AUTO) 0 % (0-1); EOSINOPHILS % (AUTO) 0 % (0-6); HEMATOCRIT 30.4 % (42.0-52.0); HEMOGLOBIN 10.3 g/dl (14.0-17.9); LYMPHOCYTES # (AUTO) 0.5 X10'3 (1.1-4.8); LYMPHOCYTES % (AUTO) 1.5 % (21-51); MEAN CORPUSCULAR HGB CONC 33.9 g/dL (33.0-36.5); MEAN CORPUSCULAR VOLUME 85.5 FL (78-98); MEAN PLATELET VOLUME 9.7 FL (7.4-10.4); MONOCYTES # (AUTO) 0.6 X10'3 (0-0.9); MONOCYTES % (AUTO) 1.8 % (2-12); NEUTROPHILS % (AUTO) 96.7 % (42-75); PLATELET COUNT 320 X10'3 (140-440); RED BLOOD COUNT 3.55 X10'6 (4.70-6.10); RED CELL DISTRIBUTION WIDTH 13.4 % (11.5-14.5)
[2021-12-12 02:13] LABS: WHITE BLOOD COUNT 33.1 X10'3 (4.5-11.0)
[2021-12-12 02:35] LABS: ALANINE AMINOTRANSFERASE 213 U/L (12-78); ALBUMIN 2.9 G/DL (3.4-5.0); ALBUMIN/GLOBULIN RATIO 1.2 (1.1-1.5); ALKALINE PHOSPHATASE 101 IU/L (46-116); ANION GAP 11 (8-16); ASPARTATE AMINO TRANSFERASE 83 U/L (10-37); BILIRUBIN,TOTAL 0.8 MG/DL (0.1-1.0); BLOOD UREA NITROGEN 84 MG/DL (7-18); BUN/CREATININE RATIO 45.4 (5.4-32.0); CALCIUM 8.2 MG/DL (8.5-10.1); CHLORIDE 100 MMOL/L (99-107); CREATININE 1.85 MG/DL (0.60-1.10); GLUCOSE 245 MG/DL (70-104); MAGNESIUM 3.3 MG/DL (1.5-2.4); PHOSPHORUS 4.6 MG/DL (2.3-4.5); POTASSIUM 5.8 MMOL/L (3.5-5.1); SODIUM 131 MMOL/L (135-145); TOTAL CARBON DIOXIDE 20.3 MMOL/L (24-32); TOTAL PROTEIN 5.4 G/DL (6.4-8.2); eGFR 37 ML/MIN
[2021-12-12] MEDS: insulin Lispro (HumaLOG) vial - multi-dose SQ SCH ×3 (02:59→14:04)
[2021-12-12 04:30] LABS: TOTAL CELLS COUNTED 100
[2021-12-12 04:32] LABS: ANISOCYTOSIS 1+; PLATELET ESTIMATE NORMAL; POLYCHROMASIA FEW
[2021-12-12 05:31] LABS: BASOPHILS % (AUTO) 0 % (0-1); EOSINOPHILS % (AUTO) 0 % (0-6); HEMOGLOBIN 10.1 g/dl (14.0-17.9); LYMPHOCYTES # (AUTO) 0.7 X10'3 (1.1-4.8); LYMPHOCYTES % (AUTO) 2.3 % (21-51); MEAN CORPUSCULAR HEMOGLOBIN 29.1 PG (27.0-31.0); MEAN CORPUSCULAR HGB CONC 33.7 g/dL (33.0-36.5); MEAN CORPUSCULAR VOLUME 86.2 FL (78-98); MEAN PLATELET VOLUME 9.7 FL (7.4-10.4); MONOCYTES # (AUTO) 0.8 X10'3 (0-0.9); MONOCYTES % (AUTO) 2.7 % (2-12); PLATELET COUNT 303 X10'3 (140-440); RED BLOOD COUNT 3.48 X10'6 (4.70-6.10); RED CELL DISTRIBUTION WIDTH 13.2 % (11.5-14.5)
[2021-12-12 05:32] LABS: ALBUMIN 2.8 G/DL (3.4-5.0); ANION GAP 8 (8-16); BLOOD UREA NITROGEN 78 MG/DL (7-18); BUN/CREATININE RATIO 45.6 (5.4-32.0); C-REACTIVE PROTEIN 0.26 MG/DL (0.0-0.5); CALCIUM 7.9 MG/DL (8.5-10.1); CHLORIDE 102 MMOL/L (99-107); CREATININE 1.71 MG/DL (0.60-1.10); D-DIMER 1.68 MG/L FEU (0-0.50); GLUCOSE 225 MG/DL (70-104); POTASSIUM 5.9 MMOL/L (3.5-5.1); SODIUM 133 MMOL/L (135-145); TOTAL CARBON DIOXIDE 23.2 MMOL/L (24-32); eGFR 41 ML/MIN
[2021-12-12 05:33] LABS: WHITE BLOOD COUNT 31.6 X10'3 (4.5-11.0)
--- NOTE | 2021-12-12 05:56 | NUR ---
Pt is alert, oriented and a one assist to turn. Pt had one complaint of pain and anxiety, relieved with PRN pain medications. Vitals and labs have been stable. Pt has been off BiPAP most of the night and is on HFNC plus a non rebreather. Oxygen saturations have been in the mid to high 90s. Vitals and labs have been stable. WBC continue to be elevated. Pt is resting comfortably in bed at this time, voices no complaints. Will continue to assess and intervene as appropriate.
--- NOTE | 2021-12-12 06:56 | NUR ---
Patient in room [facility] 2007. I have received report from Guido PRECIADO and had the opportunity to ask questions and assume patient care. Addendum: 12/12/21 at 0657 by Daniella Jimenez RN Amended: Links added.
[2021-12-12] MEDS: dexamethasone inj 6 MG in dextrose 5%-water 100 ML IV SCH (07:25)
[2021-12-12] MEDS: SODIUM ZIRCONIUM CYCLOSILICATE 10 GM POWD.PACK PO SCH ×3 (07:25→20:58)
[2021-12-12] MEDS: clopidogrel 75mg tablet PO SCH (07:25)
[2021-12-12] MEDS: pantoprazole 40mg Tablet.DR PO SCH (07:25)
[2021-12-12] MEDS: atorvastatin 10mg tablet PO SCH (07:25)
[2021-12-12] MEDS: levoTHYROXINE 25mcg tablet PO SCH (07:25)
[2021-12-12] MEDS: lactobacillus rhamnosus 10,000 MMU CELLS/CAPSULE PO SCH ×2 (07:25→20:00)
[2021-12-12] MEDS: aspirin 81mg, enteric-coated 1 TAB TABLET.DR PO SCH (07:25)
[2021-12-12] MEDS: lactose-reduced food (Ensure Enlive) - 237ml bottle PO SCH ×3 (08:49→18:00)
[2021-12-12] MEDS: NORepinephrine 8mg/ 250ml NS 250 ML IV SCH ×3 (09:23→20:59)
--- NOTE | 2021-12-12 12:46 | NUR ---
F/u 12/12: Pt s/p respiratory code w/ hypotension requiring BIPAP/CPAP yesterday per EMR; currently on 60L HFNC per RN this AM. DX large L rectal sheath hematoma per EMR. Pt PO intake continues to regress w/ increasing oxygen needs in EMR mostly 0-25% vs refusing meals past 5 days not meeting needs and pt to be NPO yesterday per heat transfer technician note. Pt PO 100% Ensure Enlive this AM first documented. RD d/w RN regarding poor nutrition status this admit; will monitor for trends off BIPAP/CPAP. If poor meal PO persists now on high flow would benefit from supplemental EN to meet nutrition needs given prolonged inadequate intake. Will continue to monitor for additional nutrition intervention needs this admit. Recommendations: 1. Continue Regular diet as tolerated 2. Ensure Enlive TIDWM; Smoothies BIDBL 3. Encourage PO intake meals/ONS 4. IF poor PO persists on 60L HFNC; consider supplemental EN via NG to meet nutrition needs 5. routine bowel care 6. Scaled wt this admit, subsequent weekly wts 7. DM education once pt more stable and has been provided with DM dx by physician; A1c 7.6% with no PMH DM per EMR Addendum: 12/12/21 at [address] Amended: Links added.
[2021-12-12] MEDS ORDERED: dexmedetomidin/NS 400mcg/100ml 100 ML IV SCH (13:40)
[2021-12-12] MEDS ORDERED: dexmedetomidine inj. 400 MCG in dextrose 5%-water 96 ML IV SCH (14:05)
[2021-12-12] MEDS: dexmedetomidine/D5W 100mL 100 ML IV SCH ×2 (14:26→20:36)
--- NOTE | 2021-12-12 15:42 | NUR ---
Precedex started and pt. placed back on biap for increased RR, work of breathing and decreased Sp02.
--- NOTE | 2021-12-12 16:46 | NUR ---
Pt. noted to have Sp02 69%. Mask was off and pt. was yelling. Unable to increase rate of Precedex due to HR decreased to 40.
--- NOTE | 2021-12-12 18:20 | NUR ---
Problems reprioritized. Patient report given, questions answered & plan of care reviewed with NOC RN.
[2021-12-12] MEDS ORDERED: furosemide 40mg/4ml inj IV ONE (19:25)
[2021-12-12] MEDS: dexamethasone inj 4 MG in dextrose 5%-water 100 ML IV SCH (20:57)
[2021-12-12] MEDS: enoxaparin 40mg/0.4ml syringe SUBCUT SCH (20:58)
[2021-12-12] MEDS: polyethylene glycol 3350 17gm powd pack PO SCH (20:59)
[2021-12-12] MEDS: insulin glargine (Lantus) pen - multi-dose SQ SCH (21:26)
[2021-12-13] VITALS (23 sets, daily range): BP systolic 95–131; BP diastolic 30–77
[2021-12-13 03:05] LABS: BASOPHILS % (AUTO) 0 % (0-1); EOSINOPHILS % (AUTO) 0.1 % (0-6); HEMATOCRIT 26.3 % (42.0-52.0); HEMOGLOBIN 8.9 g/dl (14.0-17.9); LYMPHOCYTES # (AUTO) 0.6 X10'3 (1.1-4.8); LYMPHOCYTES % (AUTO) 2.2 % (21-51); MEAN CORPUSCULAR HEMOGLOBIN 28.8 PG (27.0-31.0); MEAN CORPUSCULAR HGB CONC 33.7 g/dL (33.0-36.5); MEAN CORPUSCULAR VOLUME 85.6 FL (78-98); MONOCYTES # (AUTO) 0.8 X10'3 (0-0.9); MONOCYTES % (AUTO) 2.9 % (2-12); NEUTROPHILS # (AUTO) 24.7 X10'3 (1.8-7.7); NEUTROPHILS % (AUTO) 94.8 % (42-75); PLATELET COUNT 241 X10'3 (140-440); RED BLOOD COUNT 3.08 X10'6 (4.70-6.10); RED CELL DISTRIBUTION WIDTH 13.4 % (11.5-14.5)
[2021-12-13 03:40] LABS: ALBUMIN 2.6 G/DL (3.4-5.0); ANION GAP 10 (8-16); BLOOD UREA NITROGEN 68 MG/DL (7-18); BUN/CREATININE RATIO 52.7 (5.4-32.0); CALCIUM 7.1 MG/DL (8.5-10.1); CHLORIDE 104 MMOL/L (99-107); CREATININE 1.29 MG/DL (0.60-1.10); GLUCOSE 266 MG/DL (70-104); POTASSIUM 5.2 MMOL/L (3.5-5.1); SODIUM 137 MMOL/L (135-145); TOTAL CARBON DIOXIDE 23.1 MMOL/L (24-32); eGFR 56 ML/MIN
[2021-12-13] MEDS: dexmedetomidine/D5W 100mL 100 ML IV SCH ×3 (03:40→16:03)
[2021-12-13 04:42] LABS: TOTAL CELLS COUNTED 100
[2021-12-13 04:43] LABS: PLATELET ESTIMATE NORMAL
[2021-12-13] MEDS: pantoprazole 40mg Tablet.DR PO SCH (06:55)
[2021-12-13] MEDS: lactose-reduced food (Ensure Enlive) - 237ml bottle PO SCH (08:00)
[2021-12-13] MEDS: clopidogrel 75mg tablet PO SCH (08:09)
[2021-12-13] MEDS: SODIUM ZIRCONIUM CYCLOSILICATE 10 GM POWD.PACK PO SCH ×3 (08:09→20:33)
[2021-12-13] MEDS: levoTHYROXINE 25mcg tablet PO SCH (08:09)
[2021-12-13] MEDS: atorvastatin 10mg tablet PO SCH (08:09)
[2021-12-13] MEDS: aspirin 81mg, enteric-coated 1 TAB TABLET.DR PO SCH (08:09)
[2021-12-13] MEDS: lactobacillus rhamnosus 10,000 MMU CELLS/CAPSULE PO SCH ×2 (08:10→20:32)
[2021-12-13] MEDS: dexamethasone inj 4 MG in dextrose 5%-water 100 ML IV SCH ×2 (08:10→20:32)
[2021-12-13] MEDS: insulin Lispro (HumaLOG) vial - multi-dose SQ SCH ×3 (08:13→20:45)
--- NOTE | 2021-12-13 09:18 | NUR ---
Spoke with patient's . She has called three times this am. Bed saturated with urine. Attempted to flush hopkins with no success. New Hopkins catheter placed with good urine return. Total linen change done.
[2021-12-13] MEDS: normal saline 1000ml 1,000 ML IV SCH ×2 (12:00→23:46)
[2021-12-13] MEDS: NORepinephrine 8mg/ 250ml NS 250 ML IV SCH (12:05)
--- NOTE | 2021-12-13 12:47 | NUR ---
Dr. Roach in to see pt.
--- NOTE | 2021-12-13 13:46 | NUR ---
TF consult: Pt s/p rapid response 12/11 per EMR. Per MD note pt BiPAP dependent and NPO at this time. Corpak has been placed and pt to begin TF per MD, see recommendations below. Will continue to follow closely. Recommendations: 1. Continuous TF via Corpak using Pivot 1.5 with 75 mL/hr goal rate to provide 1800 mL total volume/day, 2700 kcal, 169 g protein, and 1366 mL water 2. Water flush per MD given frequent low serum Na; monitor serum Na 3. Prealbumin q Sunday/ 4. Daily scaled weights 5. Advance to regular diet as medically indicated given h/o poor PO intake; CHO controlled diet IF pt with adequate PO intake 6. Continue NGTF with diet advancement until pt consistently tolerating average PO intake greater than 65% of meals 7. DM education once pt more stable and has been provided with DM dx by physician; A1c 7.6% with no PMH DM per EMR Addendum: 12/13/21 at [address] Amended: Links added.
--- NOTE | 2021-12-13 14:46 | NUR ---
Tube feedings started using Corpak that was placed earlier in the shift. Pt's updated.
[2021-12-13] MEDS: enoxaparin 40mg/0.4ml syringe SUBCUT SCH (20:33)
[2021-12-13] MEDS: polyethylene glycol 3350 17gm powd pack PO SCH (20:33)
[2021-12-13] MEDS: insulin glargine (Lantus) pen - multi-dose SQ SCH (20:46)
--- NOTE | 2021-12-13 21:00 | NUR ---
Pt 's called and asked for an update. She asked if, "The Dr can give her a call and update her on his treatment plan." She stated she has not received any news about pt's care and would like an update. " Will notify day shift.
[2021-12-14] VITALS (23 sets, daily range): BP systolic 91–129; BP diastolic 53–68
[2021-12-14] MEDS: NORepinephrine 8mg/ 250ml NS 250 ML IV SCH ×4 (00:42→22:01)
[2021-12-14] MEDS: insulin Lispro (HumaLOG) vial - multi-dose SQ SCH (02:26)
[2021-12-14] MEDS: dexmedetomidine/D5W 100mL 100 ML IV SCH ×4 (02:27→19:46)
[2021-12-14 03:11] LABS: BASOPHILS % (AUTO) 0.1 % (0-1); EOSINOPHILS % (AUTO) 0.2 % (0-6); HEMATOCRIT 24.1 % (42.0-52.0); HEMOGLOBIN 8.2 g/dl (14.0-17.9); LYMPHOCYTES # (AUTO) 0.5 X10'3 (1.1-4.8); LYMPHOCYTES % (AUTO) 3.7 % (21-51); MEAN CORPUSCULAR HEMOGLOBIN 29.2 PG (27.0-31.0); MEAN CORPUSCULAR VOLUME 85.9 FL (78-98); MEAN PLATELET VOLUME 9.7 FL (7.4-10.4); MONOCYTES # (AUTO) 0.4 X10'3 (0-0.9); MONOCYTES % (AUTO) 2.8 % (2-12); NEUTROPHILS # (AUTO) 12.7 X10'3 (1.8-7.7); NEUTROPHILS % (AUTO) 93.2 % (42-75); PLATELET COUNT 186 X10'3 (140-440); RED CELL DISTRIBUTION WIDTH 13.2 % (11.5-14.5); WHITE BLOOD COUNT 13.6 X10'3 (4.5-11.0)
[2021-12-14 03:24] LABS: D-DIMER 1.89 MG/L FEU (0-0.50)
[2021-12-14 03:37] LABS: ALBUMIN 2.5 G/DL (3.4-5.0); ANION GAP 8 (8-16); BLOOD UREA NITROGEN 46 MG/DL (7-18); C-REACTIVE PROTEIN 0.09 MG/DL (0.0-0.5); CALCIUM 7.6 MG/DL (8.5-10.1); CHLORIDE 103 MMOL/L (99-107); GLUCOSE 239 MG/DL (70-104); MAGNESIUM 2.7 MG/DL (1.5-2.4); PHOSPHORUS 3.1 MG/DL (2.3-4.5); POTASSIUM 5.2 MMOL/L (3.5-5.1); SODIUM 135 MMOL/L (135-145); TOTAL CARBON DIOXIDE 24.4 MMOL/L (24-32); eGFR 75 ML/MIN
--- NOTE | 2021-12-14 05:30 | NUR ---
called again and wanted an update. She also wanted more information on how she can visit the patient if we had visiting hours. I let her know that I would find out more information and call her back once I found out more in regards to visiting. Communicated to day shift about her request on visiting.
[2021-12-14] MEDS: lactobacillus rhamnosus 10,000 MMU CELLS/CAPSULE PO SCH ×2 (08:32→19:44)
[2021-12-14] MEDS: aspirin 81mg, enteric-coated 1 TAB TABLET.DR PO SCH (08:32)
[2021-12-14] MEDS: levoTHYROXINE 25mcg tablet PO SCH (08:32)
[2021-12-14] MEDS: pantoprazole 40mg Tablet.DR PO SCH (08:32)
[2021-12-14] MEDS: clopidogrel 75mg tablet PO SCH (08:32)
[2021-12-14] MEDS: SODIUM ZIRCONIUM CYCLOSILICATE 10 GM POWD.PACK PO SCH (08:32)
[2021-12-14] MEDS: atorvastatin 10mg tablet PO SCH (08:33)
[2021-12-14] MEDS: dexamethasone inj 4 MG in dextrose 5%-water 100 ML IV SCH ×2 (08:33→19:44)
[2021-12-14] MEDS: bisacodyl 10mg suppository rectal RC SCH (09:35)
--- NOTE | 2021-12-14 10:10 | NUR ---
Spoke to Dr. Roach he has authorized on visitor for the patient, the patients Mary, called [phone] to call and inform her but the phone does not ring through
--- NOTE | 2021-12-14 11:21 | NUR ---
Patient called me to bedside stated that he feels like its harder to breath, listened to bilateral breath sounds upper right lobe sounds course, left upper lobe sounds diminished, bilateral bases sound diminished. Paged RT to cande, he will discuss PRN orders with
[2021-12-14] MEDS: ipratropium/albuterol 3ml nebule NEB PRN (11:54)
[2021-12-14 12:18] LABS: ABG BASE EXCESS -2.2 mmol/L (-2.0-2.0); ABG HCO3 21.5 mmol/L (22.0-26.0); ABG PCO2 (T) 32.4 mmHg (35.0-48.0); ABG PO2 (T) 62.6 mmHg (75.0-100.0); ALLEN'S TEST POSITIVE; FCOHb 0.3 % (0.0-3.9); FMetHb 0.2 % (0.0-1.5); FO2Hb 90.5 % (94-97); PATIENT TEMPERATURE 36.9; RESPIRATORY RATE 10 b/min; TIDAL VOLUME 1482 mL; TOTAL HEMOGLOBIN 9.2 G/dl (14.0-18.0)
--- NOTE | 2021-12-14 12:31 | NUR ---
unable to provide oral care due to patients unstable respiratory condition, he desats very easily
--- NOTE | 2021-12-14 13:57 | NUR ---
PRESSURE ULCER EDUCATION: DEFINITION: A pressure ulcer is an area of skin that breaks down when you stay in one position too long. The constant pressure against the skin reduces the blood flow to that area and the affected tissue dies. CAUSES: "Being bedridden or in a wheelchair "Fragile skin "Having a chronic condition, such as diabetes or vascular disease "Inability to move certain parts of your body without assistance "Older age "Incontinence of urine or stool SYMPTOMS: "A reddened area that DOES NOT turn white when pressed on - this can be the beginning of a pressure ulcer "A blister, deep sore or a crater - these can be advanced pressure ulcers FIRST AID: "Relieve the pressure on this area "Keep the area clean and dry "Call your primary doctor if you see any of the above symptoms "DO NOT massage the area "DO NOT use a donut shaped or ring shaped pillow- these actually interfere with the blood flow and cause complications PREVENTION: "Check for pressure ulcers everyday "Change position at least every two hours to relieve pressure "Use items that help relieve pressure- pillows, sheepskin, foam padding, and powders. "Keep skin clean and dry "Eat healthy well balanced meals "Exercise daily IF YOU SEE ANY OF THESE SYMPTOMS WHILE IN THE HOSPITAL - TELL YOUR NURSE IMMEDIATELY. IF YOU SEE ANY OF THESE SYMPTOMS WHILE AT HOME OR HAVE ANY QUESTIONS OR CONCERNS ABOUT PRESSURE ULCERS - CALL YOUR PRIMARY DOCTOR IMMEDIATELY. Addendum: 12/14/21 at 1358 by Deja Rubalcava RN Amended: Links added.
[2021-12-14] MEDS: insulin regular, human U-100 3ml vial - multi-dose SQ SCH ×2 (14:31→20:46)
--- NOTE | 2021-12-14 18:11 | NUR ---
Problems reprioritized. Patient report given, questions answered & plan of care reviewed with Candelario PRECIADO.
[2021-12-14] MEDS: enoxaparin 40mg/0.4ml syringe SUBCUT SCH (19:45)
[2021-12-14] MEDS: polyethylene glycol 3350 17gm powd pack PO SCH (20:21)
[2021-12-14] MEDS: insulin glargine (Lantus) pen - multi-dose SQ SCH (20:39)
[2021-12-14] MEDS ORDERED: flumazenil 0.1 mg/ml inj. IV ONE (21:35)
[2021-12-14 21:41] LABS: ABG BASE EXCESS -2.5 mmol/L (-2.0-2.0); ABG HCO3 21.6 mmol/L (22.0-26.0); ABG OXYGEN SATURATION 84.7 % (94-97); ABG PCO2 (T) 33.9 mmHg (35.0-48.0); ALLEN'S TEST POSITIVE; FCOHb 0.3 % (0.0-3.9); FMetHb 0.2 % (0.0-1.5); FO2Hb 84.3 % (94-97); PATIENT TEMPERATURE 36.6; TOTAL HEMOGLOBIN 9.3 G/dl (14.0-18.0)
[2021-12-14 23:58] LABS: ABG BASE EXCESS 0.5 mmol/L (-2.0-2.0); ABG HCO3 24.9 mmol/L (22.0-26.0); ABG OXYGEN SATURATION 91.1 % (94-97); ABG PCO2 (T) 38.9 mmHg (35.0-48.0); ABG PO2 (T) 63.6 mmHg (75.0-100.0); ALLEN'S TEST POSITIVE; FCOHb 0.3 % (0.0-3.9); FMetHb 0.3 % (0.0-1.5); FO2Hb 90.6 % (94-97); PATIENT TEMPERATURE 36.8; TOTAL HEMOGLOBIN 9.6 G/dl (14.0-18.0)
[2021-12-15] VITALS (18 sets, daily range): BP systolic 91–130; BP diastolic 51–79
[2021-12-15] MEDS: dexmedetomidine/D5W 100mL 100 ML IV SCH ×5 (02:51→22:00)
[2021-12-15] MEDS: insulin regular, human U-100 3ml vial - multi-dose SQ SCH ×2 (02:55→09:25)
[2021-12-15 03:03] LABS: BASOPHILS % (AUTO) 0.1 % (0-1); EOSINOPHILS # (AUTO) 0.1 X10'3 (0-0.9); EOSINOPHILS % (AUTO) 0.4 % (0-6); HEMATOCRIT 26.1 % (42.0-52.0); HEMOGLOBIN 8.8 g/dl (14.0-17.9); LYMPHOCYTES # (AUTO) 0.7 X10'3 (1.1-4.8); LYMPHOCYTES % (AUTO) 3.6 % (21-51); MEAN CORPUSCULAR HGB CONC 33.7 g/dL (33.0-36.5); MEAN CORPUSCULAR VOLUME 86.1 FL (78-98); MONOCYTES # (AUTO) 0.5 X10'3 (0-0.9); MONOCYTES % (AUTO) 2.7 % (2-12); NEUTROPHILS # (AUTO) 18.4 X10'3 (1.8-7.7); NEUTROPHILS % (AUTO) 93.2 % (42-75); PLATELET COUNT 188 X10'3 (140-440); RED BLOOD COUNT 3.03 X10'6 (4.70-6.10); RED CELL DISTRIBUTION WIDTH 13.4 % (11.5-14.5); WHITE BLOOD COUNT 19.7 X10'3 (4.5-11.0)
[2021-12-15 03:13] LABS: D-DIMER 3.26 MG/L FEU (0-0.50)
[2021-12-15 03:41] LABS: ALBUMIN 2.7 G/DL (3.4-5.0); ANION GAP 8 (8-16); BLOOD UREA NITROGEN 45 MG/DL (7-18); BUN/CREATININE RATIO 46.9 (5.4-32.0); C-REACTIVE PROTEIN 0.08 MG/DL (0.0-0.5); CALCIUM 7.9 MG/DL (8.5-10.1); CHLORIDE 104 MMOL/L (99-107); CREATININE 0.96 MG/DL (0.60-1.10); GLUCOSE 171 MG/DL (70-104); POTASSIUM 5.2 MMOL/L (3.5-5.1); PREALBUMIN 31.5 MG/DL (19-36); SODIUM 137 MMOL/L (135-145); TOTAL CARBON DIOXIDE 25.4 MMOL/L (24-32); eGFR 79 ML/MIN
--- NOTE | 2021-12-15 05:00 | NUR ---
Pt is a 61 yo male, admitted 11/30/2021, day 15 of hospitalization, full code, NDA, test COVID + 11/22/2021. COVID isolation has been discontinued. Admitted to ICU 12/01/2021, transferred to ORTHO 12/01/2021. 12/02/2021 STEMI ALERT, transferred to ICU elevated troponin (peak troponin 12,882). 12/05/2021 Heart Cath. Currently, Pt is afebrile, AAO times 4, moves all extremities, follows all commands. HR 60-70's weak pulses, 110/60, ECHO 12/03/2021 shows EF 65%, heart cath shows EF 75%. Generalized +2 edema. IVF infusing via CHRIS TL PICC line, f/p, dressing CDI. RR -30s, PO 88-93% CPAP 100% FIO2, tolerating well. Breath sounds, grossly diminished, equal symmetrical labored at times. Hypoactive active bowel sounds, soft non tender, large, round obese abdomen, -HOF tube infusing Pivot at 75/ hr. Protonix for GI prophylaxis. Glucose Q 6 HR, 2100 glucose 206 0200 glucose 165, level 6. Dooley draining kehinde urine. Skin intact. Pt remains safe. Addendum: 12/15/21 at 0511 by Seth Henderson RN at the beginning of the shift pt asked for his Ativan, .5 mg IV. Given, pt became obtunded requiring Romazicon times 1 dose. pt recovered without incident.
[2021-12-15] MEDS: NORepinephrine 8mg/ 250ml NS 250 ML IV SCH ×2 (08:00→17:29)
[2021-12-15] MEDS: dexamethasone inj 4 MG in dextrose 5%-water 100 ML IV SCH ×2 (09:04→20:56)
[2021-12-15] MEDS: levoTHYROXINE 25mcg tablet PO SCH (09:05)
[2021-12-15] MEDS: lactobacillus rhamnosus 10,000 MMU CELLS/CAPSULE PO SCH ×2 (09:05→20:00)
[2021-12-15] MEDS: atorvastatin 10mg tablet PO SCH (09:05)
[2021-12-15] MEDS: pantoprazole 40mg Tablet.DR PO SCH (09:07)
[2021-12-15] MEDS: aspirin 81mg, enteric-coated 1 TAB TABLET.DR PO SCH (09:07)
[2021-12-15] MEDS: ondansetron/PF 4mg/2ml inj IV PRN (10:33)
[2021-12-15] MEDS: diatr meglu/diatrizoate 30ml oral sol.-(3 dose) bottle PO SCH ×3 (12:29→16:05)
--- NOTE | 2021-12-15 14:02 | NUR ---
Reassessment: Pt remains on BiPAP and tolerating TF at goal rate though per RN at critical care rounds pt had a bout of emesis this morning so TF was put on hold. Pt no longer with nausea per RN. LBM 12/10 with routine bowel care available however pt refusing per EMR. RN reports will reinforce the importance of bowel regularity with patient. No changes to nutrition recommendations at this time. Will continue to follow. Recommendations: 1. Continuous TF via Corpak using Pivot 1.5 with 75 mL/hr goal to provide 1800 mL total volume/day, 2700 kcal, 169 g protein, and 1366 mL water 2. Water flush per MD given frequent low serum Na; monitor serum Na 3. Prealbumin q Sunday/ 4. Daily scaled weights 5. Advance to regular diet as medically indicated given h/o poor PO intake; CHO controlled diet IF pt with adequate PO intake 6. Continue NGTF with diet advancement until pt consistently tolerating average PO intake greater than 65% of meals 7. Routine bowel care 8. DM education once pt more stable and has been provided with DM dx by physician; A1c 7.6% with no PMH DM per EMR Addendum: 12/15/21 at [address] Amended: Links added.
--- NOTE | 2021-12-15 17:59 | NUR ---
During initial Assessment was noted to have abd distention, although no tf residual. I expressed concerns during meeting/rounds. Pt. vomited sm amts of brown emesis and zofran was given. Within the hour, pt. vomited again and Dr. Beth was notified. tf OFF and new orders received for KUB and CT and with oral contrast. Results of KUB given to MD. Pt. has had 500cc of output from ngt following placement. Pt. stated he felt better and no further s/s of nausea noted.
[2021-12-15] MEDS: enoxaparin 40mg/0.4ml syringe SUBCUT SCH (20:57)
[2021-12-15] MEDS: polyethylene glycol 3350 17gm powd pack PO SCH (20:57)
[2021-12-15] MEDS: insulin glargine (Lantus) pen - multi-dose SQ SCH (21:00)
[2021-12-16] VITALS (24 sets, daily range): BP systolic 91–128; BP diastolic 50–70
[2021-12-16] MEDS: NORepinephrine 8mg/ 250ml NS 250 ML IV SCH ×3 (02:23→20:11)
[2021-12-16 03:16] LABS: BASOPHILS % (AUTO) 0.2 % (0-1); EOSINOPHILS # (AUTO) 0.2 X10'3 (0-0.9); EOSINOPHILS % (AUTO) 0.8 % (0-6); HEMATOCRIT 25.5 % (42.0-52.0); HEMOGLOBIN 8.3 g/dl (14.0-17.9); LYMPHOCYTES # (AUTO) 0.7 X10'3 (1.1-4.8); LYMPHOCYTES % (AUTO) 3.6 % (21-51); MEAN CORPUSCULAR HEMOGLOBIN 28.6 PG (27.0-31.0); MEAN CORPUSCULAR HGB CONC 32.7 g/dL (33.0-36.5); MEAN CORPUSCULAR VOLUME 87.3 FL (78-98); MEAN PLATELET VOLUME 9.9 FL (7.4-10.4); MONOCYTES # (AUTO) 0.5 X10'3 (0-0.9); MONOCYTES % (AUTO) 2.4 % (2-12); NEUTROPHILS # (AUTO) 18.1 X10'3 (1.8-7.7); PLATELET COUNT 166 X10'3 (140-440); RED BLOOD COUNT 2.92 X10'6 (4.70-6.10); RED CELL DISTRIBUTION WIDTH 13.5 % (11.5-14.5); WHITE BLOOD COUNT 19.5 X10'3 (4.5-11.0)
[2021-12-16 03:33] LABS: D-DIMER 6.22 MG/L FEU (0-0.50)
[2021-12-16 03:40] LABS: ALANINE AMINOTRANSFERASE 273 U/L (12-78); ALBUMIN 2.6 G/DL (3.4-5.0); ALBUMIN/GLOBULIN RATIO 0.9 (1.1-1.5); ALKALINE PHOSPHATASE 119 IU/L (46-116); ANION GAP 4 (8-16); ASPARTATE AMINO TRANSFERASE 88 U/L (10-37); BILIRUBIN,TOTAL 0.8 MG/DL (0.1-1.0); BLOOD UREA NITROGEN 45 MG/DL (7-18); BUN/CREATININE RATIO 49.5 (5.4-32.0); CALCIUM 7.8 MG/DL (8.5-10.1); CHLORIDE 105 MMOL/L (99-107); CREATININE 0.91 MG/DL (0.60-1.10); GLUCOSE 115 MG/DL (70-104); POTASSIUM 5.5 MMOL/L (3.5-5.1); SODIUM 138 MMOL/L (135-145); TOTAL CARBON DIOXIDE 29.1 MMOL/L (24-32); TOTAL PROTEIN 5.5 G/DL (6.4-8.2); eGFR 84 ML/MIN
[2021-12-16] MEDS: pantoprazole 40mg Tablet.DR PO SCH (07:30)
[2021-12-16] MEDS: levoTHYROXINE 25mcg tablet PO SCH (08:00)
[2021-12-16] MEDS: lactobacillus rhamnosus 10,000 MMU CELLS/CAPSULE PO SCH ×2 (08:00→21:00)
[2021-12-16] MEDS: aspirin 81mg, enteric-coated 1 TAB TABLET.DR PO SCH (08:00)
[2021-12-16] MEDS: atorvastatin 10mg tablet PO SCH (08:00)
[2021-12-16] MEDS: dexmedetomidine/D5W 100mL 100 ML IV SCH ×3 (08:32→21:02)
[2021-12-16] MEDS: dexamethasone inj 4 MG in dextrose 5%-water 100 ML IV SCH ×2 (08:37→22:29)
[2021-12-16] MEDS: enoxaparin 40mg/0.4ml syringe SUBCUT SCH ×2 (10:00→21:01)
[2021-12-16] MEDS ORDERED: neostigmine in sterile water inj 5 MG/5 ML syringe IJ ONE (10:00)
[2021-12-16] MEDS: metoclopramide 5 mg/ml inj IV SCH ×2 (10:00→16:46)
[2021-12-16] MEDS ORDERED: diphenhydrAMINE 50 mg/ml inj ONE (10:48)
[2021-12-16] MEDS ORDERED: methylPREDNISolone sod succ 125mg/2ml vial IV ONE (10:55)
[2021-12-16] MEDS ORDERED: diphenhydrAMINE 50 mg/ml inj IV ONE (10:55)
[2021-12-16] MEDS ORDERED: furosemide 40mg/4ml inj ONE (10:57)
[2021-12-16] MEDS ORDERED: furosemide 40mg/4ml inj IV ONE (11:00)
[2021-12-16] MEDS: furosemide 40mg/4ml inj IV SCH (11:00)
[2021-12-16 12:12] LABS: ABG BASE EXCESS -0.2 mmol/L (-2.0-2.0); ABG HCO3 23.5 mmol/L (22.0-26.0); ABG OXYGEN SATURATION 91.8 % (94-97); ABG PCO2 (T) 34.9 mmHg (35.0-48.0); ABG PO2 (T) 58.5 mmHg (75.0-100.0); ALLEN'S TEST POSITIVE; FCOHb 0.2 % (0.0-3.9); FMetHb 0.3 % (0.0-1.5); FO2Hb 91.3 % (94-97); TOTAL HEMOGLOBIN 10.1 G/dl (14.0-18.0)
[2021-12-16] MEDS ORDERED: erythromycin lactobionate IV 250 MG in normal saline 100ml IV soln 100 ML IV SCH (14:00)
[2021-12-16] MEDS: insulin regular, human U-100 3ml vial - multi-dose SQ SCH ×2 (14:59→22:49)
[2021-12-16] MEDS: erythromycin lactobionate IV 250 MG in normal saline 100ml IV soln 100 ML IV SCH ×2 (16:46→22:29)
--- NOTE | 2021-12-16 18:03 | NUR ---
THis am Pt. received neostigmine as ordered for sbo. Following admin, pt. called out that he could not breathe. SPO2 dropped in the 70's. MD was immediately notified and benadryl, solumedrol, and lasix given as ordered. RT with MD at was informed of stat ABG. she stated she was not the pts RT but would notify her. RT was informed multiple times to perform ABG. ABG performed around an hour following order. Pt. symptoms resolved and SPO2 is 90-93%. Pt. had moderate sized bm, soft. Dr. Beth was notified and stated to restart tf at 30 cc continuous. Also, stated OK to admin only correctional insulin for his blood sugar of 232. MD stated not to add med to allergy list, that the reaction was expected. currently at . Cont. to monitor.
[2021-12-16] MEDS: polyethylene glycol 3350 17gm powd pack PO SCH (21:00)
[2021-12-16] MEDS: insulin glargine (Lantus) pen - multi-dose SQ SCH (21:00)
[2021-12-17] VITALS (23 sets, daily range): BP systolic 114–155; BP diastolic 61–83
[2021-12-17] MEDS: dexmedetomidine/D5W 100mL 100 ML IV SCH ×4 (00:15→23:02)
[2021-12-17] MEDS: metoclopramide 5 mg/ml inj IV SCH ×3 (00:15→15:13)
[2021-12-17 03:15] LABS: D-DIMER 4.78 MG/L FEU (0-0.50)
[2021-12-17 03:17] LABS: C-REACTIVE PROTEIN 0.27 MG/DL (0.0-0.5)
[2021-12-17] MEDS: NORepinephrine 8mg/ 250ml NS 250 ML IV SCH ×3 (04:46→22:53)
[2021-12-17 05:31] LABS: ALBUMIN 2.8 G/DL (3.4-5.0); ANION GAP 13 (8-16); BLOOD UREA NITROGEN 52 MG/DL (7-18); BUN/CREATININE RATIO 48.6 (5.4-32.0); CALCIUM 8.5 MG/DL (8.5-10.1); CHLORIDE 101 MMOL/L (99-107); CREATININE 1.07 MG/DL (0.60-1.10); GLUCOSE 225 MG/DL (70-104); PHOSPHORUS 4.2 MG/DL (2.3-4.5); POTASSIUM 5.4 MMOL/L (3.5-5.1); SODIUM 137 MMOL/L (135-145); TOTAL CARBON DIOXIDE 23.1 MMOL/L (24-32); eGFR 70 ML/MIN
[2021-12-17 05:37] LABS: BASOPHILS % (AUTO) 0 % (0-1); EOSINOPHILS % (AUTO) 0 % (0-6); HEMATOCRIT 27.6 % (42.0-52.0); HEMOGLOBIN 9.2 g/dl (14.0-17.9); LYMPHOCYTES # (AUTO) 0.6 X10'3 (1.1-4.8); LYMPHOCYTES % (AUTO) 2.5 % (21-51); MEAN CORPUSCULAR HEMOGLOBIN 29.4 PG (27.0-31.0); MEAN CORPUSCULAR HGB CONC 33.4 g/dL (33.0-36.5); MEAN CORPUSCULAR VOLUME 88.3 FL (78-98); MEAN PLATELET VOLUME 10.2 FL (7.4-10.4); MONOCYTES # (AUTO) 0.6 X10'3 (0-0.9); MONOCYTES % (AUTO) 2.5 % (2-12); NEUTROPHILS # (AUTO) 22.6 X10'3 (1.8-7.7); PLATELET COUNT 173 X10'3 (140-440); RED BLOOD COUNT 3.13 X10'6 (4.70-6.10); RED CELL DISTRIBUTION WIDTH 13.6 % (11.5-14.5); WHITE BLOOD COUNT 23.8 X10'3 (4.5-11.0)
[2021-12-17] MEDS: erythromycin lactobionate IV 250 MG in normal saline 100ml IV soln 100 ML IV SCH ×4 (05:44→23:02)
[2021-12-17] MEDS: furosemide 40mg/4ml inj IV SCH ×2 (07:43→19:59)
[2021-12-17] MEDS: dexamethasone inj 4 MG in dextrose 5%-water 100 ML IV SCH (07:43)
[2021-12-17] MEDS: atorvastatin 10mg tablet PO SCH (07:44)
[2021-12-17] MEDS: levoTHYROXINE 25mcg tablet PO SCH (07:44)
[2021-12-17] MEDS: lactobacillus rhamnosus 10,000 MMU CELLS/CAPSULE PO SCH ×2 (07:44→19:59)
[2021-12-17] MEDS: enoxaparin 40mg/0.4ml syringe SUBCUT SCH ×2 (07:45→19:59)
[2021-12-17] MEDS: aspirin 81mg tab.chew PO SCH (07:56)
[2021-12-17] MEDS: insulin regular, human U-100 3ml vial - multi-dose SQ SCH (08:08)
[2021-12-17] MEDS: bisacodyl 10mg suppository rectal RC SCH (09:35)
[2021-12-17] MEDS ORDERED: aluminum hydroxide 1,920MG/30ml UD cup PO PRN (17:30)
[2021-12-17] MEDS: mag hydrox/Alum hydrox/simeth 30ml oral suspension PO PRN (17:57)
[2021-12-17] MEDS: polyethylene glycol 3350 17gm powd pack PO SCH (19:59)
[2021-12-17] MEDS: metoprolol tartrate 12.5mg (1/2 tablet) PO SCH (20:00)
[2021-12-17] MEDS: insulin glargine (Lantus) pen - multi-dose SQ SCH (21:00)
[2021-12-18] VITALS (23 sets, daily range): BP systolic 107–161; BP diastolic 58–101
[2021-12-18] MEDS: LORazepam 2 mg/ml vial IV PRN (03:09)
[2021-12-18 03:18] LABS: D-DIMER 3.43 MG/L FEU (0-0.50)
[2021-12-18 03:21] LABS: BASOPHILS # (AUTO) 0.1 X10'3 (0-0.2); BASOPHILS % (AUTO) 0.3 % (0-1); EOSINOPHILS % (AUTO) 0 % (0-6); HEMATOCRIT 29.1 % (42.0-52.0); HEMOGLOBIN 9.6 g/dl (14.0-17.9); LYMPHOCYTES # (AUTO) 0.5 X10'3 (1.1-4.8); LYMPHOCYTES % (AUTO) 2.3 % (21-51); MEAN CORPUSCULAR HEMOGLOBIN 29.2 PG (27.0-31.0); MEAN CORPUSCULAR HGB CONC 32.9 g/dL (33.0-36.5); MEAN PLATELET VOLUME 9.9 FL (7.4-10.4); MONOCYTES # (AUTO) 0.7 X10'3 (0-0.9); NEUTROPHILS # (AUTO) 21.9 X10'3 (1.8-7.7); NEUTROPHILS % (AUTO) 94.4 % (42-75); PLATELET COUNT 154 X10'3 (140-440); RED BLOOD COUNT 3.27 X10'6 (4.70-6.10); WHITE BLOOD COUNT 23.2 X10'3 (4.5-11.0)
[2021-12-18 03:48] LABS: ALANINE AMINOTRANSFERASE 460 U/L (12-78); ALBUMIN 2.8 G/DL (3.4-5.0); ALBUMIN/GLOBULIN RATIO 0.9 (1.1-1.5); ALKALINE PHOSPHATASE 102 IU/L (46-116); ANION GAP 11 (8-16); ASPARTATE AMINO TRANSFERASE 96 U/L (10-37); BILIRUBIN,TOTAL 0.9 MG/DL (0.1-1.0); BLOOD UREA NITROGEN 47 MG/DL (7-18); BUN/CREATININE RATIO 53.4 (5.4-32.0); C-REACTIVE PROTEIN 0.09 MG/DL (0.0-0.5); CALCIUM 8.5 MG/DL (8.5-10.1); CHLORIDE 103 MMOL/L (99-107); CREATININE 0.88 MG/DL (0.60-1.10); GLUCOSE 172 MG/DL (70-104); POTASSIUM 5.1 MMOL/L (3.5-5.1); SODIUM 140 MMOL/L (135-145); TOTAL CARBON DIOXIDE 26.3 MMOL/L (24-32); TOTAL PROTEIN 5.8 G/DL (6.4-8.2); eGFR 87 ML/MIN
[2021-12-18] MEDS: erythromycin lactobionate IV 250 MG in normal saline 100ml IV soln 100 ML IV SCH ×3 (05:31→16:23)
[2021-12-18] MEDS: insulin regular, human U-100 3ml vial - multi-dose SQ SCH ×3 (07:26→23:56)
[2021-12-18] MEDS: QUEtiapine 25mg tablet PO SCH ×2 (07:46→21:35)
[2021-12-18] MEDS: aspirin 81mg tab.chew PO SCH (07:46)
[2021-12-18] MEDS: atorvastatin 10mg tablet PO SCH (07:46)
[2021-12-18] MEDS: metoprolol tartrate 12.5mg (1/2 tablet) PO SCH ×2 (07:46→21:35)
[2021-12-18] MEDS: lansoprazole 15mg solutab PO SCH (07:46)
[2021-12-18] MEDS: levoTHYROXINE 25mcg tablet PO SCH (07:46)
[2021-12-18] MEDS: lactobacillus rhamnosus 10,000 MMU CELLS/CAPSULE PO SCH ×2 (07:46→21:37)
[2021-12-18] MEDS: dexamethasone inj 6 MG in dextrose 5%-water 100 ML IV SCH (07:47)
[2021-12-18] MEDS: NORepinephrine 8mg/ 250ml NS 250 ML IV SCH ×2 (07:47→16:24)
[2021-12-18] MEDS: metoclopramide 5 mg/ml inj IV SCH ×3 (07:47→15:33)
[2021-12-18] MEDS: enoxaparin 40mg/0.4ml syringe SUBCUT SCH ×2 (07:48→21:31)
[2021-12-18] MEDS: furosemide 40mg/4ml inj IV SCH ×2 (07:52→21:35)
[2021-12-18] MEDS: dexmedetomidine/D5W 100mL 100 ML IV SCH ×3 (10:20→21:34)
--- NOTE | 2021-12-18 16:41 | NUR ---
Pt. desats to high 70s when being cleaned up.
--- NOTE | 2021-12-18 17:30 | NUR ---
stated pt. c/o being "uncomfortable". RN offered Spencer. Pt. declined.
[2021-12-18] MEDS: insulin glargine (Lantus) pen - multi-dose SQ SCH (21:00)
[2021-12-18] MEDS: polyethylene glycol 3350 17gm powd pack PO SCH (21:33)
[2021-12-19] VITALS (24 sets, daily range): BP systolic 91–147; BP diastolic 63–95
[2021-12-19] MEDS: metoclopramide 5 mg/ml inj IV SCH ×2 (00:03→08:00)
[2021-12-19] MEDS: erythromycin lactobionate IV 250 MG in normal saline 100ml IV soln 100 ML IV SCH ×2 (00:03→04:50)
[2021-12-19] MEDS: NORepinephrine 8mg/ 250ml NS 250 ML IV SCH ×3 (00:05→19:23)
[2021-12-19 03:59] LABS: C-REACTIVE PROTEIN 0.31 MG/DL (0.0-0.5); PREALBUMIN 34.9 MG/DL (19-36)
[2021-12-19] MEDS: dexmedetomidine/D5W 100mL 100 ML IV SCH ×4 (04:50→22:45)
--- NOTE | 2021-12-19 06:38 | NUR ---
Pt. had BM. Cleaned pt. up. Pt. desatted to 71%. Pt. appears exhausted. Charge Nurse aware.
--- NOTE | 2021-12-19 06:57 | NUR ---
AM labs drawn.
[2021-12-19 07:14] LABS: BASOPHILS # (AUTO) 0.2 X10'3 (0-0.2); BASOPHILS % (AUTO) 0.5 % (0-1); EOSINOPHILS # (AUTO) 0.1 X10'3 (0-0.9); EOSINOPHILS % (AUTO) 0.2 % (0-6); HEMATOCRIT 31.8 % (42.0-52.0); HEMOGLOBIN 10.5 g/dl (14.0-17.9); LYMPHOCYTES # (AUTO) 0.6 X10'3 (1.1-4.8); MEAN CORPUSCULAR HEMOGLOBIN 29.3 PG (27.0-31.0); MEAN CORPUSCULAR HGB CONC 32.9 g/dL (33.0-36.5); MONOCYTES # (AUTO) 1.2 X10'3 (0-0.9); MONOCYTES % (AUTO) 4.2 % (2-12); NEUTROPHILS # (AUTO) 26.7 X10'3 (1.8-7.7); NEUTROPHILS % (AUTO) 93.1 % (42-75); PLATELET COUNT 170 X10'3 (140-440); RED BLOOD COUNT 3.58 X10'6 (4.70-6.10); RED CELL DISTRIBUTION WIDTH 14.3 % (11.5-14.5)
[2021-12-19 07:25] LABS: WHITE BLOOD COUNT 28.6 X10'3 (4.5-11.0)
[2021-12-19] MEDS: dexamethasone inj 6 MG in dextrose 5%-water 100 ML IV SCH (07:50)
[2021-12-19] MEDS: furosemide 40mg/4ml inj IV SCH ×2 (07:50→21:06)
[2021-12-19] MEDS: aspirin 81mg tab.chew PO SCH (07:51)
[2021-12-19] MEDS: levoTHYROXINE 25mcg tablet PO SCH (07:51)
[2021-12-19] MEDS: enoxaparin 40mg/0.4ml syringe SUBCUT SCH ×2 (07:51→21:06)
[2021-12-19] MEDS: lansoprazole 15mg solutab PO SCH (07:51)
[2021-12-19] MEDS: lactobacillus rhamnosus 10,000 MMU CELLS/CAPSULE PO SCH ×2 (07:51→20:00)
[2021-12-19] MEDS: QUEtiapine 25mg tablet PO SCH ×2 (07:51→21:07)
[2021-12-19 07:52] LABS: ALBUMIN 2.7 G/DL (3.4-5.0); ANION GAP 9 (8-16); BLOOD UREA NITROGEN 59 MG/DL (7-18); BUN/CREATININE RATIO 60.2 (5.4-32.0); CALCIUM 7.9 MG/DL (8.5-10.1); CHLORIDE 105 MMOL/L (99-107); CREATININE 0.98 MG/DL (0.60-1.10); GLUCOSE 271 MG/DL (70-104); POTASSIUM 4.8 MMOL/L (3.5-5.1); SODIUM 141 MMOL/L (135-145); TOTAL CARBON DIOXIDE 27.4 MMOL/L (24-32); eGFR 77 ML/MIN
[2021-12-19] MEDS: insulin regular, human U-100 3ml vial - multi-dose SQ SCH ×2 (08:03→13:31)
[2021-12-19] MEDS: metoprolol tartrate 12.5mg (1/2 tablet) PO SCH ×2 (08:06→20:00)
[2021-12-19] MEDS: atorvastatin 10mg tablet PO SCH (08:06)
[2021-12-19 08:33] LABS: PLATELET ESTIMATE NORMAL; TOTAL CELLS COUNTED 100
[2021-12-19 08:34] LABS: STOMATOCYTES 1+
--- NOTE | 2021-12-19 08:41 | NUR ---
RN talked with Dr. Mayes re. pt. CXR done. ABG pending. Dr. Mayes will call pt's this am to discuss plan of care.
[2021-12-19 09:38] LABS: ABG BASE EXCESS -2.2 mmol/L (-2.0-2.0); ABG HCO3 21.1 mmol/L (22.0-26.0); ABG OXYGEN SATURATION 86.3 % (94-97); ABG PCO2 (T) 32.7 mmHg (35.0-48.0); ABG PO2 (T) 54.4 mmHg (75.0-100.0); ALLEN'S TEST POSITIVE; FCOHb 0.6 % (0.0-3.9); FMetHb 0.3 % (0.0-1.5); FO2Hb 85.5 % (94-97); PATIENT TEMPERATURE 37.8; TIDAL VOLUME 1400 mL; TOTAL HEMOGLOBIN 11.9 G/dl (14.0-18.0)
--- NOTE | 2021-12-19 10:03 | NUR ---
Dr. Roach in to see pt. Dr. Mayes talked with pt. earlier about possible intubation. He stated pt. agrees but is hesitant and asked to intubate pt. "next week." Will call and have her come talk with pt. per Dr. Mayes's request.
--- NOTE | 2021-12-19 10:33 | NUR ---
Pt's at bedside.
--- NOTE | 2021-12-19 10:42 | NUR ---
Communication board provided to pt. so he can communicate with his . Sp02 staying in the mid 80s. Bipap remains at 100%.
--- NOTE | 2021-12-19 10:47 | NUR ---
F/u 12/19: Pt remains on BIPAP/CPAP w/ TF returned to goal and tolerating per EMR. Copious BM this AM though also 1ml documented for stool volume receiving routine miralax w/ reglan held this AM per EMR. Will continue to monitor for further nutrition intervention needs. Recommendations: 1. Continuous TF via Corpak using Pivot 1.5 with 75 mL/hr goal to provide 1800 mL total volume/day, 2700 kcal, 169 g protein, and 1366 mL water 2. Water flush per MD given frequent low serum Na; monitor serum Na 3. Prealbumin q Sunday/; Daily scaled weights 4. Advance to regular diet as medically indicated given h/o poor PO intake; CHO controlled diet IF pt with adequate PO intake 5. Continue NGTF with diet advancement until pt consistently tolerating average PO intake greater than 65% of meals 6. Routine bowel care 7. DM education once pt more stable and has been provided with DM dx by physician; A1c 7.6% with no PMH DM per EMR Addendum: 12/19/21 at [address] Amended: Links added.
--- NOTE | 2021-12-19 11:40 | NUR ---
Tablet provided to pt. so he could video chat with his son. Pt. c/o bipap mask straps hurting his head. Padded with gauze.
[2021-12-19] MEDS: HYDROcodone/acetaminophen 5mg/325mg tablet PO PRN (12:56)
--- NOTE | 2021-12-19 13:34 | NUR ---
EARLENE harrell per Dr. Gerber vera.
--- NOTE | 2021-12-19 13:49 | NUR ---
Blood Cultures drawn.
[2021-12-19] MEDS: mag hydrox/Alum hydrox/simeth 30ml oral suspension PO PRN (17:00)
[2021-12-19] MEDS: ondansetron/PF 4mg/2ml inj IV PRN (17:00)
--- NOTE | 2021-12-19 17:05 | NUR ---
Zofran and Maalox given for nausea/indigestion.
--- NOTE | 2021-12-19 17:35 | NUR ---
Dr. Mayes and charge nurse notified of pt's small amount of emesis. Compazine order rec'd. Charge aware that pt's is requesting a sitter for pt.
[2021-12-19] MEDS ORDERED: proCHLORperazine 10 MG/2 ml inj IV PRN (17:40)
[2021-12-19] MEDS: polyethylene glycol 3350 17gm powd pack PO SCH (21:00)
--- NOTE | 2021-12-19 21:00 | NUR ---
Pt has thrown up four times since the beginning of shift. Telephone order was placed with Dr. Weathers to give Reglan.
[2021-12-19] MEDS ORDERED: metoclopramide 5 mg/ml inj IV PRN (21:05)
--- NOTE | 2021-12-19 21:30 | NUR ---
Awaiting call back from Doctor to change insulin regimen d/t tube feeding being on hold and high volumes on Lantus being given.
[2021-12-19] MEDS: insulin glargine (Lantus) pen - multi-dose SQ SCH (22:44)
--- NOTE | 2021-12-19 23:48 | NUR ---
Pt refused nighttime bath, stating that due to the multiple large BM's he had during day shift and the cleaning that came with it. He does not want another. A new draw sheet and pads will be placed during turning and repositioning, along with rectal tube and hopkins care.
[2021-12-20] VITALS (31 sets, daily range): BP systolic 69–127; BP diastolic 45–90
--- NOTE | 2021-12-20 00:15 | NUR ---
Pt vomited again and a full bed bath was performed.
[2021-12-20] MEDS: LORazepam 2 mg/ml vial IV PRN (01:19)
[2021-12-20] MEDS: acetaminophen 325mg tablet PO PRN (01:19)
[2021-12-20 03:12] LABS: ABG BASE EXCESS -0.3 mmol/L (-2.0-2.0); ABG HCO3 23.3 mmol/L (22.0-26.0); ABG OXYGEN SATURATION 95.8 % (94-97); ABG PCO2 (T) 35.6 mmHg (35.0-48.0); ABG PO2 (T) 85.4 mmHg (75.0-100.0); ALLEN'S TEST POSITIVE; FCOHb 0.5 % (0.0-3.9); FMetHb 0.2 % (0.0-1.5); FO2Hb 95.1 % (94-97); PATIENT TEMPERATURE 37.7; TOTAL HEMOGLOBIN 11.6 G/dl (14.0-18.0)
[2021-12-20] MEDS: dexmedetomidine/D5W 100mL 100 ML IV SCH ×3 (03:21→22:20)
[2021-12-20 03:32] LABS: BASOPHILS % (AUTO) 0 % (0-1); EOSINOPHILS % (AUTO) 0.1 % (0-6); HEMATOCRIT 31.5 % (42.0-52.0); HEMOGLOBIN 10.4 g/dl (14.0-17.9); LYMPHOCYTES # (AUTO) 0.4 X10'3 (1.1-4.8); LYMPHOCYTES % (AUTO) 1.6 % (21-51); MEAN CORPUSCULAR HGB CONC 33.1 g/dL (33.0-36.5); MEAN CORPUSCULAR VOLUME 87.7 FL (78-98); MEAN PLATELET VOLUME 10.4 FL (7.4-10.4); MONOCYTES # (AUTO) 0.9 X10'3 (0-0.9); MONOCYTES % (AUTO) 3.5 % (2-12); NEUTROPHILS # (AUTO) 23.3 X10'3 (1.8-7.7); NEUTROPHILS % (AUTO) 94.8 % (42-75); PLATELET COUNT 152 X10'3 (140-440); RED BLOOD COUNT 3.59 X10'6 (4.70-6.10); RED CELL DISTRIBUTION WIDTH 14.7 % (11.5-14.5); WHITE BLOOD COUNT 24.5 X10'3 (4.5-11.0)
[2021-12-20 04:01] LABS: D-DIMER 3.25 MG/L FEU (0-0.50)
[2021-12-20 04:08] LABS: ALANINE AMINOTRANSFERASE 425 U/L (12-78); ALBUMIN 2.8 G/DL (3.4-5.0); ALBUMIN/GLOBULIN RATIO 0.8 (1.1-1.5); ALKALINE PHOSPHATASE 86 IU/L (46-116); ANION GAP 8 (8-16); ASPARTATE AMINO TRANSFERASE 73 U/L (10-37); BLOOD UREA NITROGEN 88 MG/DL (7-18); BUN/CREATININE RATIO 51.2 (5.4-32.0); C-REACTIVE PROTEIN 8.89 MG/DL (0.0-0.5); CALCIUM 8.4 MG/DL (8.5-10.1); CHLORIDE 106 MMOL/L (99-107); CREATININE 1.72 MG/DL (0.60-1.10); GLUCOSE 181 MG/DL (70-104); POTASSIUM 5.1 MMOL/L (3.5-5.1); SODIUM 143 MMOL/L (135-145); TOTAL CARBON DIOXIDE 28.9 MMOL/L (24-32); TOTAL PROTEIN 6.1 G/DL (6.4-8.2); eGFR 40 ML/MIN
[2021-12-20] MEDS: NORepinephrine 8mg/ 250ml NS 250 ML IV SCH ×4 (04:17→23:11)
[2021-12-20] MEDS ORDERED: NORepinephrine 8mg/ 250ml NS 250 ML IV SCH (05:10)
[2021-12-20] MEDS ORDERED: NORepinephrine inj. 32 MG in normal saline 250ml IV soln 218 ML IV SCH (05:20)
--- NOTE | 2021-12-20 06:30 | NUR ---
Patient in room CICU 2006. I have received report from Nick PRECIADO and had the opportunity to ask questions and assume patient care.
[2021-12-20] MEDS: metoclopramide 5 mg/ml inj IV SCH ×2 (08:31→20:02)
[2021-12-20] MEDS: methylPREDNISolone sod succ 125mg/2ml vial IV SCH ×3 (08:32→23:09)
[2021-12-20] MEDS: lansoprazole 15mg solutab PO SCH (08:33)
[2021-12-20] MEDS: enoxaparin 40mg/0.4ml syringe SUBCUT SCH ×2 (08:33→19:37)
[2021-12-20] MEDS: QUEtiapine 25mg tablet PO SCH ×2 (08:33→19:38)
[2021-12-20] MEDS: aspirin 81mg tab.chew PO SCH (08:33)
[2021-12-20] MEDS: linezolid 600mg/300ml PREMIX 300 ML IV SCH ×2 (08:34→19:38)
[2021-12-20] MEDS: cefepime 1GM/NS ADD-VANTAGE 100 ML IV SCH ×3 (08:34→23:08)
[2021-12-20] MEDS: atorvastatin 10mg tablet PO SCH (08:34)
[2021-12-20] MEDS: levoTHYROXINE 25mcg tablet PO SCH (08:34)
[2021-12-20] MEDS: lactobacillus rhamnosus 10,000 MMU CELLS/CAPSULE PO SCH ×2 (08:34→19:38)
[2021-12-20] MEDS: bisacodyl 10mg suppository rectal RC SCH (09:35)
--- NOTE | 2021-12-20 10:49 | NUR ---
Patient in room CICU 2006. I have received report from Ivanna PRECIADO and had the opportunity to ask questions and assume patient care.
--- NOTE | 2021-12-20 10:50 | NUR ---
Low sats Let CN & RT know sats were mid-low 80s. RT arrived and repositioned pts BiPAP mask. Back to 94% on 100% FiO2. Dr. Mayes to see and will not intubate at this point.
--- NOTE | 2021-12-20 10:52 | NUR ---
Emesis Pt with emesis in mask and desaturations. RT notified to assist. BiPaP on standby to remove emesis from pts mask. this happened again and the sitter and I cleared the mask. Pt desats to mid 70s during cleaning. Takes about 20 mins to recover. Zofran administered to see if it would decrease emesis.
--- NOTE | 2021-12-20 10:52 | NUR ---
V-Tach Pt had 7 beat run of V-tach, CN notified.
--- NOTE | 2021-12-20 11:00 | NUR ---
Intubation Dr Mayes to see. Confirmed with pt that he was tired and agreed to intubation. Versed 10, Rocuronium 50 & etomidate 25 given for RSI. Diprivan started prior to intubation per Dr. Mayes. Pt tolerated ETT fairly well, he did have copious secretions. He was BMV post intubation to get his sats up and then put on the vent per RT.
[2021-12-20] MEDS ORDERED: propofol 1000mg/100ml bottle 100 ML IV ONE (11:06)
[2021-12-20] MEDS: midazolam 1 mg/ML 2ml injection ONE ×2 (11:11→20:01)
[2021-12-20] MEDS: midazolam 100mg in NS 100ml 100 ML IV PRN ×2 (13:08→18:31)
[2021-12-20] MEDS: FENTANYL-0.9 % NACL/PF 100 ML IV PRN ×3 (13:32→21:17)
[2021-12-20 14:37] LABS: TRIGLYCERIDES 114 MG/DL (20-135)
[2021-12-20 15:10] LABS: ABG BASE EXCESS -3.9 mmol/L (-2.0-2.0); ABG OXYGEN SATURATION 90.4 % (94-97); ABG PO2 (T) 67.8 mmHg (75.0-100.0); ALLEN'S TEST POSITIVE; FCOHb 1.1 % (0.0-3.9); FMetHb 0.3 % (0.0-1.5); FO2Hb 89.1 % (94-97); PATIENT TEMPERATURE 37.7; PEEP 14 cm H2O; RESPIRATORY RATE 20 b/min; TIDAL VOLUME 450 mL; TOTAL HEMOGLOBIN 10.5 G/dl (14.0-18.0)
--- NOTE | 2021-12-20 15:56 | NUR ---
Bed pt moved to a beri bed due to his size & extension has been requested.
[2021-12-20] MEDS: propofol 1000mg/100ml bottle 100 ML IV SCH (17:08)
[2021-12-20] MEDS: sodium chloride 0.45% 1,000 ML IV SCH (17:33)
--- NOTE | 2021-12-20 18:24 | NUR ---
Problems reprioritized. Patient report given, questions answered & plan of care reviewed with Doris RN.
[2021-12-20] MEDS: insulin regular, human U-100 3ml vial - multi-dose SQ SCH (20:35)
[2021-12-20] MEDS: insulin glargine (Lantus) pen - multi-dose SQ SCH (20:36)
[2021-12-20] MEDS: polyethylene glycol 3350 17gm powd pack PO SCH (20:40)
[2021-12-21] VITALS (47 sets, daily range): BP systolic 71–125; BP diastolic 36–70
[2021-12-21] MEDS: metoclopramide 5 mg/ml inj IV SCH ×4 (01:05→20:01)
[2021-12-21] MEDS: midazolam 100mg in NS 100ml 100 ML IV PRN ×4 (01:05→20:52)
[2021-12-21] MEDS: sodium chloride 0.45% 1,000 ML IV SCH ×3 (01:29→23:28)
[2021-12-21] MEDS: insulin regular, human U-100 3ml vial - multi-dose SQ SCH ×4 (02:59→20:56)
[2021-12-21 03:04] LABS: BASOPHILS % (AUTO) 0.1 % (0-1); EOSINOPHILS % (AUTO) 0 % (0-6); HEMATOCRIT 29.3 % (42.0-52.0); HEMOGLOBIN 9.2 g/dl (14.0-17.9); LYMPHOCYTES # (AUTO) 0.2 X10'3 (1.1-4.8); LYMPHOCYTES % (AUTO) 0.8 % (21-51); MEAN CORPUSCULAR HEMOGLOBIN 28.6 PG (27.0-31.0); MEAN CORPUSCULAR HGB CONC 31.3 g/dL (33.0-36.5); MEAN CORPUSCULAR VOLUME 91.6 FL (78-98); MEAN PLATELET VOLUME 10.5 FL (7.4-10.4); MONOCYTES # (AUTO) 0.5 X10'3 (0-0.9); MONOCYTES % (AUTO) 2.4 % (2-12); NEUTROPHILS # (AUTO) 21.7 X10'3 (1.8-7.7); NEUTROPHILS % (AUTO) 96.7 % (42-75); PLATELET COUNT 143 X10'3 (140-440); RED CELL DISTRIBUTION WIDTH 15.8 % (11.5-14.5); WHITE BLOOD COUNT 22.5 X10'3 (4.5-11.0)
[2021-12-21 03:43] LABS: ABG BASE EXCESS -2.7 mmol/L (-2.0-2.0); ABG HCO3 26.5 mmol/L (22.0-26.0); ABG OXYGEN SATURATION 92.3 % (94-97); ABG PO2 (T) 71.2 mmHg (75.0-100.0); ALLEN'S TEST Modified; FCOHb 0.3 % (0.0-3.9); FMetHb 0.5 % (0.0-1.5); FO2Hb 91.6 % (94-97); PATIENT TEMPERATURE 37.5; PEEP 14 cm H2O; RESPIRATORY RATE 24 b/min; TIDAL VOLUME 450 mL; TOTAL HEMOGLOBIN 10.2 G/dl (14.0-18.0)
[2021-12-21] MEDS: NORepinephrine 8mg/ 250ml NS 250 ML IV SCH ×6 (03:49→20:02)
[2021-12-21] MEDS: dexmedetomidine/D5W 100mL 100 ML IV SCH ×3 (05:00→18:20)
[2021-12-21] MEDS: FENTANYL-0.9 % NACL/PF 100 ML IV PRN ×2 (06:47→10:24)
[2021-12-21] MEDS: propofol 1000mg/100ml bottle 100 ML IV SCH (06:48)
[2021-12-21] MEDS: cefepime 1GM/NS ADD-VANTAGE 100 ML IV SCH (08:24)
[2021-12-21] MEDS: linezolid 600mg/300ml PREMIX 300 ML IV SCH ×2 (08:25→20:01)
[2021-12-21] MEDS: methylPREDNISolone sod succ 125mg/2ml vial IV SCH ×3 (08:26→23:32)
[2021-12-21] MEDS: lactobacillus rhamnosus 10,000 MMU CELLS/CAPSULE PO SCH ×2 (08:26→20:01)
[2021-12-21] MEDS: aspirin 81mg tab.chew PO SCH (08:26)
[2021-12-21] MEDS: enoxaparin 40mg/0.4ml syringe SUBCUT SCH (08:26)
[2021-12-21] MEDS: lansoprazole 15mg solutab PO SCH (08:26)
[2021-12-21] MEDS: atorvastatin 10mg tablet PO SCH (08:27)
[2021-12-21] MEDS: QUEtiapine 25mg tablet PO SCH ×2 (08:27→20:01)
[2021-12-21] MEDS: levoTHYROXINE 25mcg tablet PO SCH (08:27)
[2021-12-21 08:37] LABS: BASOPHILS % (AUTO) 0.1 % (0-1); EOSINOPHILS % (AUTO) 0 % (0-6); HEMATOCRIT 28.8 % (42.0-52.0); HEMOGLOBIN 9.2 g/dl (14.0-17.9); LYMPHOCYTES # (AUTO) 0.3 X10'3 (1.1-4.8); LYMPHOCYTES % (AUTO) 1.3 % (21-51); MEAN CORPUSCULAR HEMOGLOBIN 29.1 PG (27.0-31.0); MEAN CORPUSCULAR HGB CONC 31.9 g/dL (33.0-36.5); MEAN CORPUSCULAR VOLUME 91.4 FL (78-98); MEAN PLATELET VOLUME 10.3 FL (7.4-10.4); MONOCYTES # (AUTO) 0.7 X10'3 (0-0.9); MONOCYTES % (AUTO) 3.2 % (2-12); NEUTROPHILS # (AUTO) 19.5 X10'3 (1.8-7.7); NEUTROPHILS % (AUTO) 95.4 % (42-75); PLATELET COUNT 140 X10'3 (140-440); RED BLOOD COUNT 3.15 X10'6 (4.70-6.10); RED CELL DISTRIBUTION WIDTH 15.4 % (11.5-14.5); WHITE BLOOD COUNT 20.4 X10'3 (4.5-11.0)
[2021-12-21 10:45] LABS: ALANINE AMINOTRANSFERASE 287 U/L (12-78); ALBUMIN 2.3 G/DL (3.4-5.0); ALBUMIN/GLOBULIN RATIO 0.7 (1.1-1.5); ALKALINE PHOSPHATASE 78 IU/L (46-116); ANION GAP 13 (8-16); ASPARTATE AMINO TRANSFERASE 23 U/L (10-37); BILIRUBIN,TOTAL 0.7 MG/DL (0.1-1.0); BLOOD UREA NITROGEN 126 MG/DL (7-18); BUN/CREATININE RATIO 31.3 (5.4-32.0); CHLORIDE 103 MMOL/L (99-107); CREATININE 4.02 MG/DL (0.60-1.10); GLUCOSE 323 MG/DL (70-104); MAGNESIUM 3.6 MG/DL (1.5-2.4); SODIUM 138 MMOL/L (135-145); TOTAL CARBON DIOXIDE 22.4 MMOL/L (24-32); TOTAL PROTEIN 5.6 G/DL (6.4-8.2); TRIGLYCERIDES 199 MG/DL (20-135); eGFR 15 ML/MIN
[2021-12-21 10:52] LABS: PHOSPHORUS 9.8 MG/DL (2.3-4.5)
[2021-12-21 10:53] LABS: POTASSIUM 7.2 MMOL/L (3.5-5.1)
--- NOTE | 2021-12-21 11:56 | NUR ---
Reassessment: Pt desaturated and required intubation 12/20 per MD note. TF on hold at this time as pt with continuous TF suctioned out during intubation per MD note, though okay to resume TF today per MD at critical care rounds. Per EMR pt started on Propofol, currently running at 4.425 mL/hr providing roughly 117 kcal/day. No adjustments to TF goal rate warranted at this time though will continue to monitor Propofol rate and adjust recommendations as appropriate. Noted pt started on Linezolid, low tyramine nutrition therapy education deferred at this time. LBM 12/20, documented with copious stool output. Hopeful that resolution in constipation will assist in TF tolerance. Will continue to follow closely. Recommendations: 1. Continuous TF via Corpak using Pivot 1.5 with 75 mL/hr goal to provide 1800 mL total volume/day, 2700 kcal, 169 g protein, and 1366 mL water 2. Advance Corpak post-pylorically if pt with poor TF tolerance 3. Monitor Propofol rate and need to adjust TF recs 4. Water flush per MD given frequent low serum Na; monitor serum Na 5. Prealbumin q Sunday/ 6. Daily scaled weights 7. Routine bowel care 8. Advance to regular diet as medically indicated following extubation given h/o poor PO intake; CHO controlled diet IF pt with adequate PO intake 9. Continue NGTF with diet advancement until pt consistently tolerating average PO intake greater than 65% of meals 10. DM education once pt stable and has been provided with DM dx by physician after extubation; A1c 7.6% with no PMH DM per EMR 11. Low tyramine nutrition therapy education once stable following extubation if warranted Addendum: 12/21/21 at [address] Amended: Links added.
[2021-12-21] MEDS ORDERED: cefepime 1GM/NS ADD-VANTAGE 100 ML IV SCH (12:37)
--- NOTE | 2021-12-21 12:45 | NUR ---
In report this morning, I am told that night RN johanna blood twice from central line and lab canceled both thinking the values were incorrect and stated they would send phlebotomy this morning. Phlebotomy draws twice this morning with same high results. Patient's kidneys have taken a hit with high Cr and hyperkalemia. Patient needs emergent dialysis. Dr. Beth explains prognosis with patient's (scroll saw operator is present bedside) to revisit DNR or CC status. At this time, the decides to go through with placement of temporary dialysis catheter to buy the patient time for his son to see him. Time out is called at 1133 verifying correct procedure, name, , location and side. Dr. Mayes and I agree. Procedure is started at 1145 and ends at 1200 with 20cm straight Marcus inserted w/o complication to the right groin. Site appears clean and free of complications. Intention is for patient to do hemodialysis, not CRRT at this time. Wound RN inspected patient this morning with no further concerns. Bottom looks good and known pressure wound to bridge is still scabbed. When patient is put to full flat supine, he does not tolerate it for long and desaturates into the low 70's. Patient's heart rhythm via the monitor has remained in SF thus far today. Patient is still oliguric only averaging 10cc/hr. Patient has small BM in FMS. Because the patient is on Zyvox, [place], charge operator informs me that we will be stopping his Fentanyl and going to Dilaudid pushes for sedation. Given Levophed dose and the patient only being on Prop and now expected to start hemodialysis, I will approach Dr. Mayes about second adjunctives for vasopressors.
[2021-12-21] MEDS ORDERED: albumin (human) 25% 100ml IV 100 ML IV PRN (13:15)
[2021-12-21] MEDS ORDERED: heparin 1,000 units/ml 10ml inj IV ONE (13:15)
[2021-12-21] MEDS ORDERED: heparin 1,000unit/ml 10ml vial 10 ML IV ONE (13:15)
[2021-12-21] MEDS ORDERED: EPOETIN ALFA-EPBX 20,000 UNIT/ML 1 ML MDV IV ONE (13:15)
[2021-12-21] MEDS ORDERED: heparin 1,000 units/ml 10ml inj HE ONE ×2 (13:20)
--- NOTE | 2021-12-21 18:16 | NUR ---
End of shift Patient tolerated dialysis w/o complication. Report given to night RN. Family updated.
[2021-12-21] MEDS: insulin glargine (Lantus) pen - multi-dose SQ SCH (20:54)
[2021-12-21] MEDS: polyethylene glycol 3350 17gm powd pack PO SCH (21:00)
[2021-12-22] VITALS (37 sets, daily range): BP systolic 88–127; BP diastolic 43–68
[2021-12-22] MEDS: dexmedetomidine/D5W 100mL 100 ML IV SCH (00:57)
[2021-12-22] MEDS: metoclopramide 5 mg/ml inj IV SCH ×4 (01:31→20:35)
[2021-12-22] MEDS: midazolam 100mg in NS 100ml 100 ML IV PRN ×4 (01:31→19:44)
[2021-12-22] MEDS: insulin regular, human U-100 3ml vial - multi-dose SQ SCH ×4 (02:36→22:00)
[2021-12-22 02:44] LABS: BASOPHILS % (AUTO) 0 % (0-1); EOSINOPHILS % (AUTO) 0 % (0-6); HEMATOCRIT 24.7 % (42.0-52.0); HEMOGLOBIN 7.9 g/dl (14.0-17.9); LYMPHOCYTES # (AUTO) 0.3 X10'3 (1.1-4.8); LYMPHOCYTES % (AUTO) 2.1 % (21-51); MEAN CORPUSCULAR HEMOGLOBIN 28.9 PG (27.0-31.0); MEAN CORPUSCULAR HGB CONC 32.1 g/dL (33.0-36.5); MEAN CORPUSCULAR VOLUME 90.1 FL (78-98); MEAN PLATELET VOLUME 9.7 FL (7.4-10.4); MONOCYTES # (AUTO) 0.4 X10'3 (0-0.9); MONOCYTES % (AUTO) 2.6 % (2-12); NEUTROPHILS # (AUTO) 13.3 X10'3 (1.8-7.7); NEUTROPHILS % (AUTO) 95.3 % (42-75); PLATELET COUNT 89 X10'3 (140-440); RED BLOOD COUNT 2.74 X10'6 (4.70-6.10); RED CELL DISTRIBUTION WIDTH 14.9 % (11.5-14.5); WHITE BLOOD COUNT 13.9 X10'3 (4.5-11.0)
[2021-12-22 02:47] LABS: ABG BASE EXCESS -0.9 mmol/L (-2.0-2.0); ABG PCO2 (T) 55.3 mmHg (35.0-48.0); ABG PO2 (T) 111.9 mmHg (75.0-100.0); ALLEN'S TEST Modified; FMetHb 0.3 % (0.0-1.5); FO2Hb 96.7 % (94-97); PATIENT TEMPERATURE 36.8; PEEP 14 cm H2O; RESPIRATORY RATE 24 b/min; TIDAL VOLUME 450 mL; TOTAL HEMOGLOBIN 8.9 G/dl (14.0-18.0)
[2021-12-22 02:51] LABS: D-DIMER 2.19 MG/L FEU (0-0.50)
[2021-12-22 03:05] LABS: ALANINE AMINOTRANSFERASE 212 U/L (12-78); ALBUMIN 2.1 G/DL (3.4-5.0); ALBUMIN/GLOBULIN RATIO 0.7 (1.1-1.5); ALKALINE PHOSPHATASE 71 IU/L (46-116); ANION GAP 8 (8-16); ASPARTATE AMINO TRANSFERASE 18 U/L (10-37); BILIRUBIN,TOTAL 0.7 MG/DL (0.1-1.0); BLOOD UREA NITROGEN 86 MG/DL (7-18); C-REACTIVE PROTEIN 11.33 MG/DL (0.0-0.5); CALCIUM 6.9 MG/DL (8.5-10.1); CHLORIDE 105 MMOL/L (99-107); CREATININE 2.46 MG/DL (0.60-1.10); GLUCOSE 194 MG/DL (70-104); MAGNESIUM 2.9 MG/DL (1.5-2.4); PHOSPHORUS 5.8 MG/DL (2.3-4.5); POTASSIUM 5.2 MMOL/L (3.5-5.1); PREALBUMIN 16.8 MG/DL (19-36); SODIUM 140 MMOL/L (135-145); TOTAL CARBON DIOXIDE 26.6 MMOL/L (24-32); TOTAL PROTEIN 5.3 G/DL (6.4-8.2); eGFR 27 ML/MIN
[2021-12-22] MEDS: NORepinephrine 8mg/ 250ml NS 250 ML IV SCH ×2 (03:08→20:37)
--- NOTE | 2021-12-22 04:35 | NUR ---
Rounded this morning with tele MD this morning. We went over new ABG and made some vent adjustments, inform MD that pts urine out put has improved since dialysis, also that pts Hemoglobin has been trending downward. no orders received
[2021-12-22] MEDS: propofol 1000mg/100ml bottle 100 ML IV SCH ×2 (05:13→12:45)
[2021-12-22] MEDS: lansoprazole 15mg solutab PO SCH (06:36)
[2021-12-22] MEDS: levoTHYROXINE 25mcg tablet PO SCH (07:57)
[2021-12-22] MEDS: methylPREDNISolone sod succ 125mg/2ml vial IV SCH ×2 (07:57→15:49)
[2021-12-22] MEDS: lactobacillus rhamnosus 10,000 MMU CELLS/CAPSULE PO SCH (07:57)
[2021-12-22] MEDS: QUEtiapine 25mg tablet PO SCH (07:57)
[2021-12-22] MEDS: atorvastatin 10mg tablet PO SCH (07:57)
[2021-12-22] MEDS: aspirin 81mg tab.chew PO SCH (07:57)
[2021-12-22] MEDS: linezolid 600mg/300ml PREMIX 300 ML IV SCH (07:58)
[2021-12-22] MEDS ORDERED: heparin, porcine 5000 units/ml vial SQ SCH (08:00)
[2021-12-22] MEDS ORDERED: enoxaparin 30mg/0.3ml syringe SUBCUT SCH (08:00)
[2021-12-22] MEDS: sodium chloride 0.45% 1,000 ML IV SCH ×2 (10:10→20:10)
[2021-12-22] MEDS ORDERED: acetaminophen 325mg/10.15ml oral unit dose solution NG PRN ×2 (11:50→11:55)
[2021-12-22] MEDS ORDERED: dextrose ORAL solution 15 GM/59 ML bottle NG PRN ×2 (11:51)
[2021-12-22] MEDS ORDERED: mag hydrox/Alum hydrox/simeth 30ml oral suspension NG PRN (11:53)
[2021-12-22] MEDS ORDERED: HYDROcodone/acetaminophen 7.5MG/325MG per 15ml UD CUP NG PRN (11:55)
[2021-12-22] MEDS: HYDROmorphone 1 mg/ml syringe IV PRN (12:54)
--- NOTE | 2021-12-22 13:36 | NUR ---
F/u: TF did not resume 12/21 though to begin today per MD at critical care rounds. D/w RN recommendation to resume TF at 35 mL/hr and advance to goal rate by end of shift if pt tolerating TF. Also d/w RN recommendation to advance Corpak further for additional assistance with TF tolerance as Corpak resides in gastroesophageal junction per chest x-ray 12/22. Will continue to follow closely. Addendum: 12/22/21 at [address] Amended: Links added.
--- NOTE | 2021-12-22 17:50 | NUR ---
End of Shift Patient is down to 75% Fi02 and satting mid-90's. He remains on a whiff of Levophed likely due to the Propofol. We have come down a bit on his Versed (16mg) from start of shift. His urine output has really picked up with a dayshift total of 1800 cc out. He has remained in NSR and afebrile. Antibiotics canceled. Dilaudid given once for pain after asking the patient if he was in pain and he grimaced his face and lifted his shoulders in response. (noticeable and purposeful given his neuro throughout the day). He was more synchronous with the ventilator after this administration. (We canceled the Fentanyl gtts yesterday due to Zyvox being on board); thus, I believe he should receive the Dilaudid more often than we had previously given it. Family is continually updated and educated on case and disease process. Report given with plans, interventions, expected divergencies and contingencies discussed.
[2021-12-22] MEDS: QUEtiapine 25mg tablet NG SCH (20:33)
[2021-12-22] MEDS: polyethylene glycol 3350 17gm powd pack NG SCH (20:34)
[2021-12-22] MEDS: lactobacillus rhamnosus 10,000 MMU CELLS/CAPSULE NG SCH (20:34)
[2021-12-22] MEDS: apixaban 5mg tablet NG SCH (20:34)
[2021-12-22] MEDS: insulin glargine (Lantus) pen - multi-dose SQ SCH (21:59)
--- NOTE | 2021-12-22 23:21 | NUR ---
called at this time and updated about her husbands condition. Will continue to monitor.
[2021-12-23] VITALS (30 sets, daily range): BP systolic 98–125; BP diastolic 53–68
[2021-12-23] MEDS: methylPREDNISolone sod succ 125mg/2ml vial IV SCH ×3 (00:10→16:33)
[2021-12-23] MEDS: propofol 1000mg/100ml bottle 100 ML IV SCH ×8 (00:10→21:34)
[2021-12-23] MEDS: insulin regular, human U-100 3ml vial - multi-dose SQ SCH ×4 (02:35→20:09)
[2021-12-23] MEDS: midazolam 100mg in NS 100ml 100 ML IV PRN ×4 (02:41→19:07)
[2021-12-23] MEDS: metoclopramide 5 mg/ml inj IV SCH ×4 (02:48→20:10)
[2021-12-23 02:57] LABS: BASOPHILS % (AUTO) 0.1 % (0-1); EOSINOPHILS % (AUTO) 0 % (0-6); HEMATOCRIT 22.6 % (42.0-52.0); HEMOGLOBIN 7.3 g/dl (14.0-17.9); LYMPHOCYTES # (AUTO) 0.1 X10'3 (1.1-4.8); LYMPHOCYTES % (AUTO) 1.7 % (21-51); MEAN CORPUSCULAR HGB CONC 32.4 g/dL (33.0-36.5); MEAN CORPUSCULAR VOLUME 89.5 FL (78-98); MEAN PLATELET VOLUME 9.8 FL (7.4-10.4); MONOCYTES # (AUTO) 0.3 X10'3 (0-0.9); MONOCYTES % (AUTO) 3.6 % (2-12); NEUTROPHILS # (AUTO) 6.8 X10'3 (1.8-7.7); NEUTROPHILS % (AUTO) 94.6 % (42-75); PLATELET COUNT 88 X10'3 (140-440); RED BLOOD COUNT 2.52 X10'6 (4.70-6.10); RED CELL DISTRIBUTION WIDTH 15.4 % (11.5-14.5); WHITE BLOOD COUNT 7.2 X10'3 (4.5-11.0)
[2021-12-23 03:33] LABS: ALANINE AMINOTRANSFERASE 147 U/L (12-78); ALBUMIN/GLOBULIN RATIO 0.6 (1.1-1.5); ALKALINE PHOSPHATASE 62 IU/L (46-116); ANION GAP 4 (8-16); ASPARTATE AMINO TRANSFERASE 18 U/L (10-37); BILIRUBIN,TOTAL 0.7 MG/DL (0.1-1.0); BLOOD UREA NITROGEN 80 MG/DL (7-18); BUN/CREATININE RATIO 54.4 (5.4-32.0); C-REACTIVE PROTEIN 6.41 MG/DL (0.0-0.5); CHLORIDE 108 MMOL/L (99-107); CREATININE 1.47 MG/DL (0.60-1.10); GLUCOSE 280 MG/DL (70-104); MAGNESIUM 3.2 MG/DL (1.5-2.4); PHOSPHORUS 4.1 MG/DL (2.3-4.5); POTASSIUM 5.1 MMOL/L (3.5-5.1); SODIUM 141 MMOL/L (135-145); TOTAL CARBON DIOXIDE 29.1 MMOL/L (24-32); TOTAL PROTEIN 5.2 G/DL (6.4-8.2); eGFR 48 ML/MIN
[2021-12-23 03:55] LABS: ABG BASE EXCESS -0.3 mmol/L (-2.0-2.0); ABG HCO3 26.4 mmol/L (22.0-26.0); ABG OXYGEN SATURATION 90.2 % (94-97); ABG PCO2 (T) 54.7 mmHg (35.0-48.0); ALLEN'S TEST POSITIVE; FCOHb 0.9 % (0.0-3.9); FMetHb 0.3 % (0.0-1.5); FO2Hb 89.1 % (94-97); PATIENT TEMPERATURE 36.8; PEEP 14 cm H2O; RESPIRATORY RATE 30 b/min; TIDAL VOLUME 450 mL; TOTAL HEMOGLOBIN 8.2 G/dl (14.0-18.0)
--- NOTE | 2021-12-23 06:26 | NUR ---
End of shift report. Spoke with the patients again this morning and gave her the update for the night. Bed Bath given to the patient and clean linens applied. Report given to Allison PRECIADO with noted vent settings and IV medication tracing performed and skin check performed.
[2021-12-23] MEDS ORDERED: cefepime inj. 0.5 GM in normal saline 100ml IV soln 100 ML IV SCH (08:00)
[2021-12-23] MEDS: atorvastatin 10mg tablet NG SCH (08:29)
[2021-12-23] MEDS: aspirin 81mg tab.chew NG SCH (08:31)
[2021-12-23] MEDS: apixaban 5mg tablet NG SCH ×2 (08:31→20:00)
[2021-12-23] MEDS: levoTHYROXINE 25mcg tablet NG SCH (08:31)
[2021-12-23] MEDS: QUEtiapine 25mg tablet NG SCH ×2 (08:32→20:10)
[2021-12-23] MEDS: lansoprazole 15mg solutab NG SCH (08:32)
[2021-12-23] MEDS: lactobacillus rhamnosus 10,000 MMU CELLS/CAPSULE NG SCH ×2 (08:32→20:10)
[2021-12-23] MEDS ORDERED: furosemide 40mg/4ml inj IV ONE (08:45)
[2021-12-23] MEDS: bisacodyl 10mg suppository rectal RC SCH (09:35)
[2021-12-23] MEDS: NORepinephrine 8mg/ 250ml NS 250 ML IV SCH (14:05)
[2021-12-23] MEDS: cefepime 1GM in NS 100mL IVPB IV SCH (16:33)
--- NOTE | 2021-12-23 17:20 | NUR ---
F/u: TC with RN who reports TF running at 40 mL/hr and pt with GRV 350-400 mL with Propofol at 45 mcg/kg/min and possibly to increase to 50 mcg/kg/min with proning. Current Propofol rate providing roughly 1051 kcal/day, TF recommendations have been adjusted to best meet patient's estimated nutrient needs given current Propofol rate, see below. LBM 2/10 with a rectal tube in place per EMR though no documentation of stool output. Pt receiving routine Miralax and Reglan. D/w RN recommendation for possible additional bowel care to assist with TF tolerance with MD approval, RN to d/w . RN confirmed pt no longer with a Corpak and is receiving nutrition from OGT, which has been advanced today as it was in the GE junction per CXR. D/w RN that pt could benefit from Corpak placement for post-pyloric feeding to further assist with tolerance. Noted pt no longer receiving Linezolid, low tyramine nutrition therapy no longer indicated. Will continue to follow and make recommendations as appropriate. Recommendations: 1) Given Propofol at 39.825 mL/hr (1051 kcal/day), continuous Vital High Protein with 70 mL/hr goal rate to provide 1680 mL total volume/day, 1680 kcal, 147 g protein, and 1405 mL water 2) IF Propofol discontinued, resume continuous TF using Pivot 1.5 with 75 mL/hr goal to provide 1800 mL total volume/day, 2700 kcal, 169 g protein, and 1366 mL water 3) Monitor Propofol rate and need to further adjust TF recs 4) Consider Corpak placement for post-pyloric feeding if pt with poor TF tolerance 5) Water flush per MD given frequent low serum Na; monitor serum Na 6) Prealbumin q Sunday/ 7) Daily scaled weights 8) Routine bowel care 9) DM education once pt stable and has been provided with DM dx by physician after extubation; A1c 7.6% with no PMH DM per EMR Addendum: 12/23/21 at [address] Amended: Links added.
[2021-12-23] MEDS: polyethylene glycol 3350 17gm powd pack NG SCH (20:10)
[2021-12-23] MEDS: insulin glargine (Lantus) pen - multi-dose SQ SCH (20:36)
[2021-12-23] MEDS: dexmedetomidine/D5W 100mL 100 ML IV SCH (23:34)
[2021-12-24] VITALS (30 sets, daily range): BP systolic 88–145; BP diastolic 45–76
[2021-12-24] MEDS: propofol 1000mg/100ml bottle 100 ML IV SCH ×7 (00:15→19:11)
[2021-12-24] MEDS: cefepime 1GM in NS 100mL IVPB IV SCH (00:24)
[2021-12-24] MEDS: midazolam 100mg in NS 100ml 100 ML IV PRN ×5 (00:25→19:11)
[2021-12-24] MEDS: methylPREDNISolone sod succ 125mg/2ml vial IV SCH ×4 (00:25→23:28)
[2021-12-24] MEDS: NORepinephrine 8mg/ 250ml NS 250 ML IV SCH ×3 (00:54→23:54)
[2021-12-24] MEDS: metoclopramide 5 mg/ml inj IV SCH ×4 (02:06→19:12)
[2021-12-24 03:16] LABS: ABG BASE EXCESS 2.8 mmol/L (-2.0-2.0); ABG HCO3 29.4 mmol/L (22.0-26.0); ABG OXYGEN SATURATION 90.1 % (94-97); ABG PCO2 (T) 56.4 mmHg (35.0-48.0); ABG PO2 (T) 60.3 mmHg (75.0-100.0); ALLEN'S TEST POSITIVE; FCOHb 0.8 % (0.0-3.9); FMetHb 0.3 % (0.0-1.5); FO2Hb 89.1 % (94-97); PATIENT TEMPERATURE 36.5; PEEP 12 cm H2O; RESPIRATORY RATE 30 b/min; TIDAL VOLUME 450 mL; TOTAL HEMOGLOBIN 8.5 G/dl (14.0-18.0)
[2021-12-24] MEDS: insulin regular, human U-100 3ml vial - multi-dose SQ SCH ×4 (03:19→20:23)
--- NOTE | 2021-12-24 03:34 | NUR ---
Pt is a 61 yo male, admitted 11/30/2021, day 19 of hospitalization, full code, NDA, test COVID + 11/22/2021. NO isolation, bilateral soft wrist restraints, orders and documentation in accordance with facility policies and procedures. Admitted to ICU 12/01/2021, transferred to ORTHO 12/01/2021, 12/02/2021 STEMI ALERT, transferred to ICU elevated troponin (peak troponin 12,882) recent troponin 7051. 12/20/2021 Intubated, 12/20/2021, 12/20/2021 V-Tach. 12/23/2021, Tube feeding high residuals 350+, Dooley changed on day shift. Currently, Pt is afebrile, Sedated on Versed at 20 mg/hr (20ml's/hr), Propofol 50 mcgs/hr (38.7 ml's/hr). HR 60-70's good pulses, 112/59, BP supported with Levophed at .05mcgs/min (10.59 ml's/hr). ECHO 12/03/2021 shows EF 65%. Generalized +2+3 edema. IVF infusing via LAC, f/p. Pt was intubated 12/20/2021, #8.0 24cm, AC/PRVC, rate 30, TV 450+/-, PEEP 12, FIO2 80%. PO 95%. Breath sounds, diminished, coarse, equal symmetrical non labored. Normo-active bowel sounds, soft non tender, large, round obese abdomen, passing flatus. Rectal tube draining small amount brown stool. OGT infusing PIVOT at 40, pt with twyla residuals at 300+/-. Protonix for GI prophylaxis. Glucose Q6 hours. Dooley was replaced 12/23/2021 on day shift, draining yellow/ kehinde urine. 200-350/ hr. Pt with facial pressure ulcer from BiPAP machine. Pt remains safe, pt's updated. Continue to monitor. Addendum: 12/24/21 at 0453 by Seth Henderson RN Plts were [address] Arriaga
[2021-12-24 03:57] LABS: D-DIMER 1.15 MG/L FEU (0-0.50)
[2021-12-24 04:02] LABS: BASOPHILS % (AUTO) 0.1 % (0-1); EOSINOPHILS % (AUTO) 0 % (0-6); HEMATOCRIT 22.9 % (42.0-52.0); HEMOGLOBIN 7.4 g/dl (14.0-17.9); LYMPHOCYTES # (AUTO) 0.1 X10'3 (1.1-4.8); MEAN CORPUSCULAR HEMOGLOBIN 29.2 PG (27.0-31.0); MEAN CORPUSCULAR HGB CONC 32.3 g/dL (33.0-36.5); MEAN CORPUSCULAR VOLUME 90.4 FL (78-98); MEAN PLATELET VOLUME 9.6 FL (7.4-10.4); MONOCYTES # (AUTO) 0.3 X10'3 (0-0.9); MONOCYTES % (AUTO) 4.4 % (2-12); NEUTROPHILS # (AUTO) 5.9 X10'3 (1.8-7.7); NEUTROPHILS % (AUTO) 94.5 % (42-75); PLATELET COUNT 99 X10'3 (140-440); RED BLOOD COUNT 2.53 X10'6 (4.70-6.10); RED CELL DISTRIBUTION WIDTH 15.1 % (11.5-14.5); WHITE BLOOD COUNT 6.2 X10'3 (4.5-11.0)
[2021-12-24 04:30] LABS: ALANINE AMINOTRANSFERASE 141 U/L (12-78); ALBUMIN/GLOBULIN RATIO 0.7 (1.1-1.5); ALKALINE PHOSPHATASE 54 IU/L (46-116); ANION GAP 5 (8-16); ASPARTATE AMINO TRANSFERASE 27 U/L (10-37); BILIRUBIN,TOTAL 0.6 MG/DL (0.1-1.0); BLOOD UREA NITROGEN 67 MG/DL (7-18); BUN/CREATININE RATIO 55.4 (5.4-32.0); C-REACTIVE PROTEIN 2.98 MG/DL (0.0-0.5); CALCIUM 7.6 MG/DL (8.5-10.1); CHLORIDE 113 MMOL/L (99-107); CREATININE 1.21 MG/DL (0.60-1.10); GLUCOSE 302 MG/DL (70-104); MAGNESIUM 3.3 MG/DL (1.5-2.4); PHOSPHORUS 3.2 MG/DL (2.3-4.5); POTASSIUM 5.7 MMOL/L (3.5-5.1); SODIUM 147 MMOL/L (135-145); TOTAL CARBON DIOXIDE 29.2 MMOL/L (24-32); eGFR 61 ML/MIN
[2021-12-24] MEDS: dexmedetomidine/D5W 100mL 100 ML IV SCH ×4 (05:17→23:15)
[2021-12-24 05:32] LABS: TRIGLYCERIDES 275 MG/DL (20-135)
[2021-12-24] MEDS: cefepime 1GM in D5W 50mL 50 ML IV SCH ×3 (07:21→23:28)
[2021-12-24] MEDS: aspirin 81mg tab.chew NG SCH (07:23)
[2021-12-24] MEDS: apixaban 5mg tablet NG SCH ×2 (07:23→19:36)
[2021-12-24] MEDS: atorvastatin 10mg tablet NG SCH (07:23)
[2021-12-24] MEDS: lansoprazole 15mg solutab NG SCH (07:23)
[2021-12-24] MEDS: lactobacillus rhamnosus 10,000 MMU CELLS/CAPSULE NG SCH ×2 (07:24→19:12)
[2021-12-24] MEDS: levoTHYROXINE 25mcg tablet NG SCH (07:24)
[2021-12-24] MEDS: QUEtiapine 25mg tablet NG SCH ×2 (07:24→19:12)
[2021-12-24] MEDS: HYDROmorphone 1 mg/ml syringe IV PRN (12:59)
[2021-12-24] MEDS: polyethylene glycol 3350 17gm powd pack NG SCH (20:15)
[2021-12-24] MEDS: insulin glargine (Lantus) pen - multi-dose SQ SCH (20:21)
[2021-12-25] VITALS (29 sets, daily range): BP systolic 93–165; BP diastolic 49–89
[2021-12-25] MEDS: propofol 1000mg/100ml bottle 100 ML IV SCH ×10 (00:28→23:57)
[2021-12-25] MEDS: midazolam 100mg in NS 100ml 100 ML IV PRN ×6 (00:36→21:57)
[2021-12-25] MEDS: metoclopramide 5 mg/ml inj IV SCH ×4 (01:36→20:33)
[2021-12-25] MEDS: insulin regular, human U-100 3ml vial - multi-dose SQ SCH ×4 (01:54→23:40)
[2021-12-25 02:17] LABS: BASOPHILS % (AUTO) 0.2 % (0-1); EOSINOPHILS % (AUTO) 0 % (0-6); HEMATOCRIT 26.4 % (42.0-52.0); HEMOGLOBIN 8.6 g/dl (14.0-17.9); LYMPHOCYTES # (AUTO) 0.1 X10'3 (1.1-4.8); LYMPHOCYTES % (AUTO) 1.4 % (21-51); MEAN CORPUSCULAR HEMOGLOBIN 29.3 PG (27.0-31.0); MEAN CORPUSCULAR HGB CONC 32.4 g/dL (33.0-36.5); MEAN CORPUSCULAR VOLUME 90.4 FL (78-98); MEAN PLATELET VOLUME 9.2 FL (7.4-10.4); MONOCYTES # (AUTO) 0.4 X10'3 (0-0.9); NEUTROPHILS # (AUTO) 9.7 X10'3 (1.8-7.7); NEUTROPHILS % (AUTO) 94.4 % (42-75); PLATELET COUNT 124 X10'3 (140-440); RED BLOOD COUNT 2.92 X10'6 (4.70-6.10); RED CELL DISTRIBUTION WIDTH 15.7 % (11.5-14.5); WHITE BLOOD COUNT 10.2 X10'3 (4.5-11.0)
[2021-12-25 02:39] LABS: ALANINE AMINOTRANSFERASE 201 U/L (12-78); ALBUMIN 2.3 G/DL (3.4-5.0); ALBUMIN/GLOBULIN RATIO 0.7 (1.1-1.5); ALKALINE PHOSPHATASE 58 IU/L (46-116); ANION GAP 6 (8-16); ASPARTATE AMINO TRANSFERASE 50 U/L (10-37); BILIRUBIN,TOTAL 0.7 MG/DL (0.1-1.0); BLOOD UREA NITROGEN 78 MG/DL (7-18); BUN/CREATININE RATIO 71.6 (5.4-32.0); CALCIUM 8.1 MG/DL (8.5-10.1); CHLORIDE 115 MMOL/L (99-107); CREATININE 1.09 MG/DL (0.60-1.10); GLUCOSE 207 MG/DL (70-104); MAGNESIUM 3.6 MG/DL (1.5-2.4); PHOSPHORUS 2.9 MG/DL (2.3-4.5); SODIUM 151 MMOL/L (135-145); TOTAL CARBON DIOXIDE 30.2 MMOL/L (24-32); TOTAL PROTEIN 5.6 G/DL (6.4-8.2); eGFR 68 ML/MIN
[2021-12-25 02:45] LABS: POTASSIUM 6.3 MMOL/L (3.5-5.1)
[2021-12-25 03:29] LABS: ABG BASE EXCESS 3.6 mmol/L (-2.0-2.0); ABG HCO3 29.6 mmol/L (22.0-26.0); ABG OXYGEN SATURATION 94.8 % (94-97); ABG PCO2 (T) 50.3 mmHg (35.0-48.0); ABG PO2 (T) 70.8 mmHg (75.0-100.0); ALLEN'S TEST POSITIVE; FCOHb 0.7 % (0.0-3.9); FMetHb 0.1 % (0.0-1.5); PEEP 12 cm H2O; RESPIRATORY RATE 30 b/min; TIDAL VOLUME 450 mL; TOTAL HEMOGLOBIN 9.3 G/dl (14.0-18.0)
--- NOTE | 2021-12-25 03:56 | NUR ---
Pt is a 61 yo male, admitted 11/30/2021, day 20 of hospitalization, full code, NDA, test COVID + 11/22/2021. NO isolation, bilateral soft wrist restraints, orders and documentation in accordance with facility policies and procedures. Admitted to ICU 12/01/2021, transferred to ORTHO 12/01/2021, 12/02/2021 STEMI ALERT, transferred to ICU elevated troponin (peak troponin 12,882) recent troponin 7051. 12/20/2021 Intubated, 12/20/2021, 12/20/2021 V-Tach. 12/21/2021 dialysis.,12/23/2021, Tube feeding high residuals 350+, Dooley changed on day shift. Currently, Pt is afebrile, Sedated on Versed at 20 mg/hr (20ml's/hr), Propofol 50 mcgs/hr (38.7 ml's/hr), Precedex .4mcgs. HR 60-70's good pulses, 112/59, BP supported with Levophed at .05mcgs/min (10.59 ml's/hr). ECHO 12/03/2021 shows EF 65%. Generalized +2+3 edema. IVF infusing via LAC, f/p. Pt was intubated 12/20/2021, #8.0 24cm, AC/PRVC, rate 30, TV 450+/-, PEEP 12, FIO2 75%. PO 95%. Breath sounds, diminished, coarse, equal symmetrical non labored. Normo-active bowel sounds, soft non tender, large, round obese abdomen, passing flatus. Rectal tube draining small amount brown stool. OGT infusing PIVOT at 40, pt with high residuals at 300+/-. Protonix for GI prophylaxis. Glucose Q6 hours. Dooley was replaced 12/23/2021 on day shift, draining yellow/ kehinde urine. 200-350/ hr. Pt with facial pressure ulcer from BiPAP machine. Pt remains safe, pt's updated. Continue to monitor.
[2021-12-25] MEDS: dexmedetomidine/D5W 100mL 100 ML IV SCH ×4 (05:33→21:58)
[2021-12-25] MEDS: NORepinephrine 8mg/ 250ml NS 250 ML IV SCH ×2 (08:35→17:42)
[2021-12-25] MEDS: aspirin 81mg tab.chew NG SCH (08:57)
[2021-12-25] MEDS: cefepime 1GM in D5W 50mL 50 ML IV SCH ×3 (08:57→23:51)
[2021-12-25] MEDS: lactobacillus rhamnosus 10,000 MMU CELLS/CAPSULE NG SCH ×2 (08:57→20:33)
[2021-12-25] MEDS: levoTHYROXINE 25mcg tablet NG SCH (08:57)
[2021-12-25] MEDS: QUEtiapine 25mg tablet NG SCH ×2 (08:57→20:33)
[2021-12-25] MEDS: apixaban 5mg tablet NG SCH ×2 (08:58→20:33)
[2021-12-25] MEDS: methylPREDNISolone sod succ 125mg/2ml vial IV SCH ×3 (08:58→23:50)
[2021-12-25] MEDS: atorvastatin 10mg tablet NG SCH (08:58)
[2021-12-25] MEDS: SODIUM ZIRCONIUM CYCLOSILICATE 10 GM POWD.PACK PO SCH ×3 (08:59→21:17)
[2021-12-25] MEDS: lansoprazole 15mg solutab NG SCH (09:11)
--- NOTE | 2021-12-25 18:22 | NUR ---
Problems reprioritized. Patient report given, questions answered & plan of care reviewed with Jonathan PRECIADO.
[2021-12-25] MEDS: polyethylene glycol 3350 17gm powd pack NG SCH (20:43)
[2021-12-25] MEDS: insulin glargine (Lantus) pen - multi-dose SQ SCH (21:00)
[2021-12-26] VITALS (34 sets, daily range): BP systolic 94–127; BP diastolic 55–75
[2021-12-26] MEDS: metoclopramide 5 mg/ml inj IV SCH ×4 (02:31→19:54)
[2021-12-26] MEDS: propofol 1000mg/100ml bottle 100 ML IV SCH ×9 (02:31→23:45)
[2021-12-26] MEDS: dexmedetomidine/D5W 100mL 100 ML IV SCH ×5 (02:32→23:43)
[2021-12-26 03:00] LABS: ABG BASE EXCESS 2.6 mmol/L (-2.0-2.0); ABG HCO3 29.4 mmol/L (22.0-26.0); ABG PCO2 (T) 55.9 mmHg (35.0-48.0); ABG PO2 (T) 62.5 mmHg (75.0-100.0); ALLEN'S TEST POSITIVE; FCOHb 0.5 % (0.0-3.9); FMetHb 0.3 % (0.0-1.5); FO2Hb 91.3 % (94-97); PEEP 12 cm H2O; RESPIRATORY RATE 28 b/min; TIDAL VOLUME 450 mL; TOTAL HEMOGLOBIN 8.9 G/dl (14.0-18.0)
[2021-12-26 03:02] LABS: D-DIMER 1.43 MG/L FEU (0-0.50); EOSINOPHILS % (AUTO) 0 % (0-6); LYMPHOCYTES # (AUTO) 0.1 X10'3 (1.1-4.8); LYMPHOCYTES % (AUTO) 2.2 % (21-51); MEAN CORPUSCULAR HGB CONC 32.1 g/dL (33.0-36.5); MEAN CORPUSCULAR VOLUME 91.5 FL (78-98); MEAN PLATELET VOLUME 9.3 FL (7.4-10.4); NEUTROPHILS # (AUTO) 6.3 X10'3 (1.8-7.7)
[2021-12-26 03:05] LABS: BASOPHILS % (AUTO) 0.2 % (0-1); HEMATOCRIT 24.7 % (42.0-52.0); HEMOGLOBIN 7.9 g/dl (14.0-17.9); MEAN CORPUSCULAR HEMOGLOBIN 29.3 PG (27.0-31.0); MONOCYTES # (AUTO) 0.3 X10'3 (0-0.9); MONOCYTES % (AUTO) 3.9 % (2-12); NEUTROPHILS % (AUTO) 93.7 % (42-75); PLATELET COUNT 116 X10'3 (140-440); RED CELL DISTRIBUTION WIDTH 15.7 % (11.5-14.5); WHITE BLOOD COUNT 6.8 X10'3 (4.5-11.0)
[2021-12-26 03:33] LABS: ALANINE AMINOTRANSFERASE 201 U/L (12-78); ALBUMIN 2.1 G/DL (3.4-5.0); ALBUMIN/GLOBULIN RATIO 0.7 (1.1-1.5); ALKALINE PHOSPHATASE 51 IU/L (46-116); ANION GAP 3 (8-16); ASPARTATE AMINO TRANSFERASE 38 U/L (10-37); BILIRUBIN,TOTAL 0.6 MG/DL (0.1-1.0); BLOOD UREA NITROGEN 71 MG/DL (7-18); BUN/CREATININE RATIO 73.2 (5.4-32.0); CALCIUM 7.8 MG/DL (8.5-10.1); CHLORIDE 115 MMOL/L (99-107); CREATININE 0.97 MG/DL (0.60-1.10); GLUCOSE 318 MG/DL (70-104); MAGNESIUM 3.3 MG/DL (1.5-2.4); PHOSPHORUS 3.3 MG/DL (2.3-4.5); PREALBUMIN 30.5 MG/DL (19-36); SODIUM 148 MMOL/L (135-145); TOTAL CARBON DIOXIDE 30.1 MMOL/L (24-32); TOTAL PROTEIN 5.1 G/DL (6.4-8.2); eGFR 78 ML/MIN
[2021-12-26 03:50] LABS: POTASSIUM 6.3 MMOL/L (3.5-5.1)
[2021-12-26 04:25] LABS: ANISOCYTOSIS 1+; NUCLEATED RED BLOOD CELLS 3 /100WBC (0-0); PLATELET ESTIMATE DECREASED; POLYCHROMASIA FEW; STOMATOCYTES FEW; TOTAL CELLS COUNTED 100
[2021-12-26] MEDS: midazolam 100mg in NS 100ml 100 ML IV PRN ×5 (05:09→23:43)
[2021-12-26] MEDS ORDERED: CALCIUM GLUC 1gm/50ml NACL,iso 100 ML IV STA (06:27)
--- NOTE | 2021-12-26 06:27 | NUR ---
Patient in room CICU 2006. I have received report from Jonathan PRECIADO and had the opportunity to ask questions and assume patient care.
[2021-12-26] MEDS ORDERED: furosemide 40mg/4ml inj IV ONE (06:30)
[2021-12-26] MEDS ORDERED: insulin regular, human 10 units/0.1 ml syringe IV ONE (06:30)
[2021-12-26] MEDS: NORepinephrine 8mg/ 250ml NS 250 ML IV SCH ×3 (07:12→13:21)
[2021-12-26] MEDS ORDERED: SODIUM ZIRCONIUM CYCLOSILICATE 10 GM POWD.PACK PO SCH (08:00)
[2021-12-26] MEDS: methylPREDNISolone sod succ 125mg/2ml vial IV SCH ×3 (08:29→23:46)
[2021-12-26] MEDS: cefepime 1GM in D5W 50mL 50 ML IV SCH ×2 (08:29→15:09)
[2021-12-26] MEDS: lansoprazole 15mg solutab NG SCH (08:30)
[2021-12-26] MEDS: aspirin 81mg tab.chew NG SCH (08:30)
[2021-12-26] MEDS: atorvastatin 10mg tablet NG SCH (08:30)
[2021-12-26] MEDS: apixaban 5mg tablet NG SCH ×2 (08:30→19:54)
[2021-12-26] MEDS: levoTHYROXINE 25mcg tablet NG SCH (08:30)
[2021-12-26] MEDS: lactobacillus rhamnosus 10,000 MMU CELLS/CAPSULE NG SCH ×2 (08:30→19:54)
[2021-12-26] MEDS: QUEtiapine 25mg tablet NG SCH ×2 (08:30→19:54)
[2021-12-26] MEDS: SODIUM ZIRCONIUM CYCLOSILICATE 10 GM POWD.PACK PO SCH ×3 (08:31→20:46)
[2021-12-26] MEDS: bisacodyl 10mg suppository rectal RC SCH (09:35)
[2021-12-26] MEDS: insulin regular, human U-100 3ml vial - multi-dose SQ SCH ×3 (09:56→21:55)
[2021-12-26] MEDS: sennosides/docusate sodium tablet PO SCH ×2 (11:40→19:54)
--- NOTE | 2021-12-26 11:40 | NUR ---
Dr. Mayes aware of K recheck of 5.9. MD ordered to changed tube feed formula. Also informed MD of left side abdomen bruising, MD aware and stated this is old bruising from hematoma and will keep close eye on H&H.
--- NOTE | 2021-12-26 12:01 | NUR ---
F/u 12/26: Pt potassium 6.3 this AM receiving routine Lokelma w/ normal renal function per service architect note. Evs Manager requests Nepro TF for pt w/ current EN providing 2352mg potassium/day; updated recs below. Only able to meet 63% of patients minimum estimated protein needs given pt receiving Propofol at 38.7ml/hr per RN providing 1022 kcals/day in addition to high fat Nepro formula. Pt rectal tube -50ml past 6 days per EMR receiving routine miralax and reglan w/ additional bowel regimen to start today per service architect. Will continue to monitor for TF tolerance and further adjustment needs. Recommendations: 1) Nepro TF per Evs Manager; pt receiving Propofol at 38.7mL/hr (1022 kcals/day). Nepro at 40 mL/hr to provide 960mL total volume/day, 1728 kcal, 78g protein, and 682mL water. Only able to meet 63% minimum estimated protein needs. 2) IF TF to liberalize and pt remains on Propofol; recommend Vital High Protein at 70ml/hr goal to meet protein needs on vent. 3) IF Propofol discontinued, resume continuous TF using Pivot 1.5 with 75 mL/hr goal to provide 1800 mL total volume/day, 2700 kcal, 169 g protein, and 1366 mL water 4) Monitor Propofol rate and need to further adjust TF recs 5) Consider Corpak placement for post-pyloric feeding if pt with poor TF tolerance 6) Water flush per MD given request for renal formulation; prior frequent low serum Na; Na 148mmol/L this AM 7) Prealbumin q Sunday/; Daily scaled weights 8) Routine bowel care 9) DM education once pt stable and has been provided with DM dx by physician after extubation; A1c 7.6% with no PMH DM per EMR Addendum: 12/26/21 at [address] Amended: Links added.
--- NOTE | 2021-12-26 18:15 | NUR ---
Problems reprioritized. Patient report given, questions answered & plan of care reviewed with Jonathan PRECIADO.
[2021-12-26] MEDS: polyethylene glycol 3350 17gm powd pack NG SCH (19:55)
[2021-12-26] MEDS: insulin glargine (Lantus) pen - multi-dose SQ SCH (21:54)
[2021-12-27] VITALS (34 sets, daily range): BP systolic 93–126; BP diastolic 50–76
[2021-12-27] MEDS: cefepime 1GM/NS ADD-VANTAGE 100 ML IV SCH ×3 (00:24→15:06)
[2021-12-27] MEDS: metoclopramide 5 mg/ml inj IV SCH ×4 (02:28→20:18)
[2021-12-27] MEDS: propofol 1000mg/100ml bottle 100 ML IV SCH ×9 (02:29→23:51)
[2021-12-27] MEDS: dexmedetomidine/D5W 100mL 100 ML IV SCH ×5 (02:30→23:52)
[2021-12-27] MEDS: midazolam 100mg in NS 100ml 100 ML IV PRN ×5 (02:30→23:52)
[2021-12-27 03:28] LABS: LYMPHOCYTES # (AUTO) 0.3 X10'3 (1.1-4.8); MEAN CORPUSCULAR VOLUME 91.5 FL (78-98); MEAN PLATELET VOLUME 9.5 FL (7.4-10.4); MONOCYTES # (AUTO) 0.3 X10'3 (0-0.9)
[2021-12-27 03:29] LABS: BASOPHILS % (AUTO) 0 % (0-1); EOSINOPHILS % (AUTO) 0 % (0-6); HEMATOCRIT 24.8 % (42.0-52.0); LYMPHOCYTES % (AUTO) 4.2 % (21-51); MEAN CORPUSCULAR HEMOGLOBIN 29.6 PG (27.0-31.0); MEAN CORPUSCULAR HGB CONC 32.3 g/dL (33.0-36.5); MONOCYTES % (AUTO) 4.3 % (2-12); NEUTROPHILS # (AUTO) 7.2 X10'3 (1.8-7.7); NEUTROPHILS % (AUTO) 91.5 % (42-75); PLATELET COUNT 118 X10'3 (140-440); RED BLOOD COUNT 2.71 X10'6 (4.70-6.10); RED CELL DISTRIBUTION WIDTH 15.8 % (11.5-14.5); WHITE BLOOD COUNT 7.8 X10'3 (4.5-11.0)
[2021-12-27 03:59] LABS: ALANINE AMINOTRANSFERASE 221 U/L (12-78); ALBUMIN/GLOBULIN RATIO 0.7 (1.1-1.5); ANION GAP 7 (8-16); ASPARTATE AMINO TRANSFERASE 49 U/L (10-37); BILIRUBIN,TOTAL 0.6 MG/DL (0.1-1.0); BLOOD UREA NITROGEN 63 MG/DL (7-18); BUN/CREATININE RATIO 69.2 (5.4-32.0); C-REACTIVE PROTEIN 0.49 MG/DL (0.0-0.5); CALCIUM 7.7 MG/DL (8.5-10.1); CHLORIDE 112 MMOL/L (99-107); CREATININE 0.91 MG/DL (0.60-1.10); GLUCOSE 256 MG/DL (70-104); MAGNESIUM 2.9 MG/DL (1.5-2.4); PHOSPHORUS 3.4 MG/DL (2.3-4.5); POTASSIUM 5.6 MMOL/L (3.5-5.1); SODIUM 148 MMOL/L (135-145); TOTAL CARBON DIOXIDE 29.2 MMOL/L (24-32); TOTAL PROTEIN 4.8 G/DL (6.4-8.2); TRIGLYCERIDES 268 MG/DL (20-135); eGFR 84 ML/MIN
[2021-12-27] MEDS: insulin regular, human U-100 3ml vial - multi-dose SQ SCH ×4 (04:51→21:40)
[2021-12-27] MEDS: NORepinephrine 8mg/ 250ml NS 250 ML IV SCH ×3 (06:28→22:12)
--- NOTE | 2021-12-27 06:54 | NUR ---
Patient in room CICU 2006. I have received report from Jonathan PRECIADO and had the opportunity to ask questions and assume patient care.
[2021-12-27] MEDS: QUEtiapine 25mg tablet NG SCH ×2 (07:23→20:18)
[2021-12-27] MEDS: apixaban 5mg tablet NG SCH ×2 (07:23→20:18)
[2021-12-27] MEDS: methylPREDNISolone sod succ 125mg/2ml vial IV SCH ×2 (07:23→15:07)
[2021-12-27] MEDS: levoTHYROXINE 25mcg tablet NG SCH (07:24)
[2021-12-27] MEDS: lactobacillus rhamnosus 10,000 MMU CELLS/CAPSULE NG SCH ×2 (07:24→20:18)
[2021-12-27] MEDS: lansoprazole 15mg solutab NG SCH (07:24)
[2021-12-27] MEDS: aspirin 81mg tab.chew NG SCH (07:24)
[2021-12-27] MEDS: atorvastatin 10mg tablet NG SCH (07:24)
[2021-12-27] MEDS: sennosides/docusate sodium tablet PO SCH ×2 (07:24→20:18)
[2021-12-27 07:28] LABS: ABG BASE EXCESS 6.3 mmol/L (-2.0-2.0); ABG HCO3 32.3 mmol/L (22.0-26.0); ABG OXYGEN SATURATION 96.7 % (94-97); ABG PCO2 (T) 53.6 mmHg (35.0-48.0); ABG PO2 (T) 88.4 mmHg (75.0-100.0); ALLEN'S TEST Yes; FCOHb 0.6 % (0.0-3.9); FMetHb 0.2 % (0.0-1.5); FO2Hb 95.9 % (94-97); PATIENT TEMPERATURE 36.5; PEEP 12 cm H2O; RESPIRATORY RATE 28 b/min; TIDAL VOLUME 450 mL; TOTAL HEMOGLOBIN 9.2 G/dl (14.0-18.0)
[2021-12-27] MEDS: SODIUM ZIRCONIUM CYCLOSILICATE 10 GM POWD.PACK PO SCH (09:08)
[2021-12-27 09:18] LABS: RESPIRATORY RATE (OBSERVED) 30 b/min
[2021-12-27] MEDS ORDERED: lactulose 20gm/30ml cup PO ONE (09:25)
[2021-12-27] MEDS ORDERED: lactulose 20gm/30ml cup OGT ONE (13:30)
[2021-12-27] MEDS: methylPREDNISolone sod succ/PF 40mg inj. IV SCH ×2 (16:00→23:52)
--- NOTE | 2021-12-27 18:24 | NUR ---
Problems reprioritized. Patient report given, questions answered & plan of care reviewed with Jonathan PRECIADO.
[2021-12-27] MEDS: polyethylene glycol 3350 17gm powd pack NG SCH (20:19)
[2021-12-27] MEDS: insulin glargine (Lantus) pen - multi-dose SQ SCH (21:39)
[2021-12-28] VITALS (46 sets, daily range): BP systolic 94–133; BP diastolic 49–80
[2021-12-28 01:38] LABS: ABG BASE EXCESS 1.3 mmol/L (-2.0-2.0); ABG HCO3 27.7 mmol/L (22.0-26.0); ABG OXYGEN SATURATION 91.7 % (94-97); ABG PCO2 (T) 52.9 mmHg (35.0-48.0); ABG PO2 (T) 62.6 mmHg (75.0-100.0); ALLEN'S TEST POSITIVE; FCOHb 0.9 % (0.0-3.9); FMetHb 0.2 % (0.0-1.5); FO2Hb 90.7 % (94-97); PATIENT TEMPERATURE 36.7; PEEP 12 cm H2O; RESPIRATORY RATE 28 b/min; TIDAL VOLUME 425 mL; TOTAL HEMOGLOBIN 9.1 G/dl (14.0-18.0)
[2021-12-28] MEDS: metoclopramide 5 mg/ml inj IV SCH ×4 (02:13→20:53)
[2021-12-28] MEDS: propofol 1000mg/100ml bottle 100 ML IV SCH ×8 (02:14→20:54)
[2021-12-28] MEDS: insulin regular, human U-100 3ml vial - multi-dose SQ SCH ×4 (02:27→23:58)
[2021-12-28 02:36] LABS: EOSINOPHILS % (AUTO) 0 % (0-6); LYMPHOCYTES # (AUTO) 0.3 X10'3 (1.1-4.8); MONOCYTES # (AUTO) 0.2 X10'3 (0-0.9); MONOCYTES % (AUTO) 2.6 % (2-12); RED BLOOD COUNT 2.69 X10'6 (4.70-6.10)
[2021-12-28 02:37] LABS: BASOPHILS % (AUTO) 0.1 % (0-1); HEMATOCRIT 24.5 % (42.0-52.0); LYMPHOCYTES % (AUTO) 3.6 % (21-51); MEAN CORPUSCULAR HEMOGLOBIN 29.6 PG (27.0-31.0); MEAN CORPUSCULAR HGB CONC 32.4 g/dL (33.0-36.5); MEAN CORPUSCULAR VOLUME 91.1 FL (78-98); MEAN PLATELET VOLUME 9.5 FL (7.4-10.4); NEUTROPHILS # (AUTO) 7.9 X10'3 (1.8-7.7); NEUTROPHILS % (AUTO) 93.7 % (42-75); PLATELET COUNT 126 X10'3 (140-440); RED CELL DISTRIBUTION WIDTH 16.1 % (11.5-14.5); WHITE BLOOD COUNT 8.4 X10'3 (4.5-11.0)
[2021-12-28 03:12] LABS: ALANINE AMINOTRANSFERASE 265 U/L (12-78); ALBUMIN/GLOBULIN RATIO 0.7 (1.1-1.5); ANION GAP 3 (8-16); ASPARTATE AMINO TRANSFERASE 64 U/L (10-37); BILIRUBIN,TOTAL 0.6 MG/DL (0.1-1.0); BLOOD UREA NITROGEN 56 MG/DL (7-18); BUN/CREATININE RATIO 72.7 (5.4-32.0); C-REACTIVE PROTEIN 0.42 MG/DL (0.0-0.5); CALCIUM 8.1 MG/DL (8.5-10.1); CHLORIDE 111 MMOL/L (99-107); CREATININE 0.77 MG/DL (0.60-1.10); GLUCOSE 178 MG/DL (70-104); MAGNESIUM 2.7 MG/DL (1.5-2.4); PHOSPHORUS 3.9 MG/DL (2.3-4.5); SODIUM 145 MMOL/L (135-145); TOTAL CARBON DIOXIDE 31.5 MMOL/L (24-32); TOTAL PROTEIN 4.8 G/DL (6.4-8.2); TRIGLYCERIDES 232 MG/DL (20-135); eGFR > 90 ML/MIN
[2021-12-28 03:45] LABS: POTASSIUM 6.1 MMOL/L (3.5-5.1)
[2021-12-28 04:41] LABS: ANISOCYTOSIS 1+; NUCLEATED RED BLOOD CELLS 2 /100WBC (0-0); PLATELET ESTIMATE DECREASED; TOTAL CELLS COUNTED 100
[2021-12-28 04:42] LABS: POLYCHROMASIA FEW
[2021-12-28] MEDS: NORepinephrine 8mg/ 250ml NS 250 ML IV SCH ×2 (08:00→16:54)
[2021-12-28] MEDS: levoTHYROXINE 25mcg tablet NG SCH (08:21)
[2021-12-28] MEDS: methylPREDNISolone sod succ/PF 40mg inj. IV SCH ×2 (08:21→15:38)
[2021-12-28] MEDS: apixaban 5mg tablet NG SCH ×2 (08:21→20:53)
[2021-12-28] MEDS: lactobacillus rhamnosus 10,000 MMU CELLS/CAPSULE NG SCH ×2 (08:21→20:52)
[2021-12-28] MEDS: aspirin 81mg tab.chew NG SCH (08:21)
[2021-12-28] MEDS: QUEtiapine 25mg tablet NG SCH ×2 (08:21→20:53)
[2021-12-28] MEDS: sennosides/docusate sodium tablet PO SCH ×2 (08:22→20:53)
[2021-12-28] MEDS: SODIUM ZIRCONIUM CYCLOSILICATE 10 GM POWD.PACK PO SCH (08:22)
[2021-12-28] MEDS: atorvastatin 10mg tablet NG SCH (08:22)
[2021-12-28] MEDS: lansoprazole 15mg solutab NG SCH (08:22)
[2021-12-28] MEDS ORDERED: sodium polystyrene sulfonate 15gm/60ml oral suspension PO ONE (09:10)
--- NOTE | 2021-12-28 09:20 | NUR ---
Called MD Johnson to notify of critical K (6.1) at this time.
[2021-12-28] MEDS: dexmedetomidine/D5W 100mL 100 ML IV SCH ×4 (10:20→18:50)
[2021-12-28] MEDS: midazolam 100mg in NS 100ml 100 ML IV PRN ×3 (10:20→18:51)
[2021-12-28 14:32] LABS: ALBUMIN 1.7 G/DL (3.4-5.0); ANION GAP 4 (8-16); BLOOD UREA NITROGEN 50 MG/DL (7-18); BUN/CREATININE RATIO 65.8 (5.4-32.0); CALCIUM 6.6 MG/DL (8.5-10.1); CHLORIDE 102 MMOL/L (99-107); CREATININE 0.76 MG/DL (0.60-1.10); SODIUM 135 MMOL/L (135-145); TOTAL CARBON DIOXIDE 29.3 MMOL/L (24-32); eGFR > 90 ML/MIN
[2021-12-28 14:33] LABS: CREATINE KINASE 403 U/L (39-308); GLUCOSE 326 MG/DL (70-104); POTASSIUM 5.6 MMOL/L (3.5-5.1)
--- NOTE | 2021-12-28 14:56 | NUR ---
Reassessment: Pt remains intubated and tolerating TF at goal rate with GRV WNL. Noted serum K remains high despite TF formula change significantly reducing K intake. Pt continues receiving routine Lokelma and pt received one time dose of Kayexalate today. D/w MD recommendation to change pt back to a critical care formula to better meet patient's estimated nutrient needs, MD agrees. See updated recommendations below. Noted Propofol documented to be running at 44.25 mL/hr providing 1168 kcal/day, TF adjusted accordingly. LBM 12/27 though documented with only 30 mL stool output per I&O. Pt receiving routine bowel care and prokinetic agent. Will continue to follow closely. Recommendations: 1) Given Propofol at 44.25 mL/hr (1168 kcal/day), continuous Vital High Protein at 50 mL/hr to provide 1200 mL total volume/day, 1200 kcal, 105 g protein, and 1003 mL water. Only able to meet 55% minimum estimated protein needs given Propofol rate 2) IF Propofol discontinued, increase goal rate to 95 mL/hr using Vital High Protein to provide 2280 mL total volume/day, 2280 kcal, 200 g protein, and 1906 mL water 3) Monitor Propofol rate and need to further adjust TF recs 4) Consider Corpak placement for post-pyloric feeding if pt with poor TF tolerance 5) Water flush per MD given prior frequent low serum Na; Na 135 MMOL/L today 6) Prealbumin q Sunday/ 7) Daily scaled weights 8) Routine bowel care 9) DM education once pt stable and has been provided with DM dx by physician after extubation; A1c 7.6% with no PMH DM per EMR Addendum: 12/28/21 at [address] Amended: Links added.
[2021-12-28 15:29] LABS: D-DIMER 1.66 MG/L FEU (0-0.50)
[2021-12-28] MEDS: polyethylene glycol 3350 17gm powd pack NG SCH (20:53)
[2021-12-28] MEDS: insulin glargine (Lantus) pen - multi-dose SQ SCH (21:40)
[2021-12-29] VITALS (47 sets, daily range): BP systolic 99–135; BP diastolic 52–76
[2021-12-29] MEDS: dexmedetomidine/D5W 100mL 100 ML IV SCH ×5 (00:36→19:33)
[2021-12-29] MEDS: methylPREDNISolone sod succ/PF 40mg inj. IV SCH ×2 (00:36→07:14)
[2021-12-29] MEDS: propofol 1000mg/100ml bottle 100 ML IV SCH ×8 (00:36→21:13)
[2021-12-29] MEDS: midazolam 100mg in NS 100ml 100 ML IV PRN ×3 (00:37→17:43)
[2021-12-29] MEDS: NORepinephrine 8mg/ 250ml NS 250 ML IV SCH ×3 (01:15→18:52)
[2021-12-29] MEDS: metoclopramide 5 mg/ml inj IV SCH ×2 (02:44→07:14)
[2021-12-29 03:21] LABS: HEMOGLOBIN 8.3 g/dl (14.0-17.9); LYMPHOCYTES # (AUTO) 0.4 X10'3 (1.1-4.8); MEAN PLATELET VOLUME 9.7 FL (7.4-10.4); MONOCYTES # (AUTO) 0.3 X10'3 (0-0.9); WHITE BLOOD COUNT 9.5 X10'3 (4.5-11.0)
[2021-12-29 03:24] LABS: BASOPHILS % (AUTO) 0.5 % (0-1); EOSINOPHILS % (AUTO) 0 % (0-6); HEMATOCRIT 25.5 % (42.0-52.0); LYMPHOCYTES % (AUTO) 4.5 % (21-51); MEAN CORPUSCULAR HEMOGLOBIN 30.2 PG (27.0-31.0); MEAN CORPUSCULAR HGB CONC 32.4 g/dL (33.0-36.5); MONOCYTES % (AUTO) 3.2 % (2-12); NEUTROPHILS # (AUTO) 8.7 X10'3 (1.8-7.7); NEUTROPHILS % (AUTO) 91.8 % (42-75); PLATELET COUNT 117 X10'3 (140-440); RED BLOOD COUNT 2.74 X10'6 (4.70-6.10); RED CELL DISTRIBUTION WIDTH 16.4 % (11.5-14.5)
[2021-12-29 03:34] LABS: D-DIMER 1.68 MG/L FEU (0-0.50)
[2021-12-29 03:38] LABS: ANION GAP -1 (8-16); BLOOD UREA NITROGEN 49 MG/DL (7-18); BUN/CREATININE RATIO 74.2 (5.4-32.0); C-REACTIVE PROTEIN 0.29 MG/DL (0.0-0.5); CHLORIDE 112 MMOL/L (99-107); CREATININE 0.66 MG/DL (0.60-1.10); GLUCOSE 199 MG/DL (70-104); MAGNESIUM 2.5 MG/DL (1.5-2.4); PHOSPHORUS 3.5 MG/DL (2.3-4.5); POTASSIUM 5.6 MMOL/L (3.5-5.1); SODIUM 144 MMOL/L (135-145); TOTAL CARBON DIOXIDE 32.6 MMOL/L (24-32); eGFR > 90 ML/MIN
[2021-12-29 03:56] LABS: PREALBUMIN 39.2 MG/DL (19-36)
[2021-12-29 04:41] LABS: ABG BASE EXCESS 4.7 mmol/L (-2.0-2.0); ABG HCO3 31.3 mmol/L (22.0-26.0); ABG OXYGEN SATURATION 93.6 % (94-97); ABG PCO2 (T) 57.4 mmHg (35.0-48.0); ABG PO2 (T) 69.6 mmHg (75.0-100.0); ALLEN'S TEST Modified; FMetHb 0.3 % (0.0-1.5); FO2Hb 92.4 % (94-97); PATIENT TEMPERATURE 36.7; PEEP 12 cm H2O; RESPIRATORY RATE 28 b/min; TIDAL VOLUME 425 mL; TOTAL HEMOGLOBIN 9.3 G/dl (14.0-18.0)
[2021-12-29] MEDS: insulin regular, human U-100 3ml vial - multi-dose SQ SCH ×4 (05:19→19:59)
[2021-12-29] MEDS: lactobacillus rhamnosus 10,000 MMU CELLS/CAPSULE NG SCH ×2 (07:14→19:32)
[2021-12-29] MEDS: aspirin 81mg tab.chew NG SCH (07:14)
[2021-12-29] MEDS: QUEtiapine 25mg tablet NG SCH ×2 (07:15→19:32)
[2021-12-29] MEDS: lansoprazole 15mg solutab NG SCH (07:15)
[2021-12-29] MEDS: levoTHYROXINE 25mcg tablet NG SCH (07:15)
[2021-12-29] MEDS: atorvastatin 10mg tablet NG SCH (07:15)
[2021-12-29] MEDS: sennosides/docusate sodium tablet PO SCH (07:15)
[2021-12-29] MEDS: apixaban 5mg tablet NG SCH ×2 (07:15→19:32)
[2021-12-29] MEDS: SODIUM ZIRCONIUM CYCLOSILICATE 10 GM POWD.PACK PO SCH (08:00)
[2021-12-29] MEDS: bisacodyl 10mg suppository rectal RC SCH (08:15)
[2021-12-29] MEDS ORDERED: MULTIVIT-MIN/FERROUS GLUCONATE 9 MG/15 ML LIQUID PO SCH (11:32)
[2021-12-29] MEDS ORDERED: multivitamins, therapeutics tablet PO SCH (11:42)
[2021-12-29 12:03] LABS: TOTAL CARBON DIOXIDE 27.2 MMOL/L (24-32)
[2021-12-29 12:23] LABS: ALBUMIN 1.7 G/DL (3.4-5.0); ANION GAP 5 (8-16); BLOOD UREA NITROGEN 45 MG/DL (7-18); BUN/CREATININE RATIO 78.9 (5.4-32.0); CALCIUM 7.1 MG/DL (8.5-10.1); CHLORIDE 102 MMOL/L (99-107); CREATININE 0.57 MG/DL (0.60-1.10); GLUCOSE 318 MG/DL (70-104); SODIUM 134 MMOL/L (135-145); eGFR > 90 ML/MIN
[2021-12-29 12:46] LABS: POTASSIUM 5.2 MMOL/L (3.5-5.1)
[2021-12-29] MEDS: zinc sulfate 220mg capsule PO SCH ×2 (12:49→19:32)
[2021-12-29] MEDS: insulin glargine (Lantus) pen - multi-dose SQ SCH (19:58)
[2021-12-30] VITALS (42 sets, daily range): BP systolic 81–134; BP diastolic 47–73
[2021-12-30] MEDS: midazolam 100mg in NS 100ml 100 ML IV PRN ×4 (00:10→20:57)
[2021-12-30] MEDS: propofol 1000mg/100ml bottle 100 ML IV SCH ×7 (00:10→22:43)
[2021-12-30] MEDS: dexmedetomidine/D5W 100mL 100 ML IV SCH ×4 (00:10→14:00)
[2021-12-30 03:03] LABS: EOSINOPHILS # (AUTO) 0.1 X10'3 (0-0.9); EOSINOPHILS % (AUTO) 0.6 % (0-6); LYMPHOCYTES # (AUTO) 1.2 X10'3 (1.1-4.8); MEAN CORPUSCULAR HGB CONC 32.1 g/dL (33.0-36.5); MONOCYTES # (AUTO) 0.4 X10'3 (0-0.9)
[2021-12-30 03:06] LABS: BASOPHILS % (AUTO) 0.4 % (0-1); HEMATOCRIT 25.1 % (42.0-52.0); LYMPHOCYTES % (AUTO) 11.5 % (21-51); MEAN CORPUSCULAR VOLUME 93.4 FL (78-98); MEAN PLATELET VOLUME 9.6 FL (7.4-10.4); MONOCYTES % (AUTO) 3.4 % (2-12); NEUTROPHILS % (AUTO) 84.1 % (42-75); PLATELET COUNT 126 X10'3 (140-440); RED BLOOD COUNT 2.68 X10'6 (4.70-6.10); RED CELL DISTRIBUTION WIDTH 16.9 % (11.5-14.5); WHITE BLOOD COUNT 10.7 X10'3 (4.5-11.0)
[2021-12-30 03:16] LABS: D-DIMER 2.02 MG/L FEU (0-0.50)
[2021-12-30 03:22] LABS: ABG BASE EXCESS 5.7 mmol/L (-2.0-2.0); ABG HCO3 31.2 mmol/L (22.0-26.0); ABG OXYGEN SATURATION 93.1 % (94-97); ABG PCO2 (T) 50.6 mmHg (35.0-48.0); ABG PO2 (T) 64.1 mmHg (75.0-100.0); ALLEN'S TEST POSITIVE; FCOHb 1.4 % (0.0-3.9); FMetHb 0.3 % (0.0-1.5); FO2Hb 91.5 % (94-97); PATIENT TEMPERATURE 36.9; PEEP 12 cm H2O; RESPIRATORY RATE 28 b/min; TIDAL VOLUME 425 mL; TOTAL HEMOGLOBIN 8.9 G/dl (14.0-18.0)
[2021-12-30 03:33] LABS: ALANINE AMINOTRANSFERASE 244 U/L (12-78); ALBUMIN 1.9 G/DL (3.4-5.0); ALBUMIN/GLOBULIN RATIO 0.7 (1.1-1.5); ALKALINE PHOSPHATASE 50 IU/L (46-116); ANION GAP 5 (8-16); ASPARTATE AMINO TRANSFERASE 53 U/L (10-37); BILIRUBIN,TOTAL 0.5 MG/DL (0.1-1.0); BLOOD UREA NITROGEN 48 MG/DL (7-18); BUN/CREATININE RATIO 81.4 (5.4-32.0); C-REACTIVE PROTEIN 0.34 MG/DL (0.0-0.5); CALCIUM 7.8 MG/DL (8.5-10.1); CHLORIDE 109 MMOL/L (99-107); CREATININE 0.59 MG/DL (0.60-1.10); GLUCOSE 106 MG/DL (70-104); MAGNESIUM 2.3 MG/DL (1.5-2.4); PHOSPHORUS 3.1 MG/DL (2.3-4.5); POTASSIUM 4.7 MMOL/L (3.5-5.1); SODIUM 145 MMOL/L (135-145); TOTAL CARBON DIOXIDE 31.5 MMOL/L (24-32); TOTAL PROTEIN 4.7 G/DL (6.4-8.2); eGFR > 90 ML/MIN
[2021-12-30] MEDS: NORepinephrine 8mg/ 250ml NS 250 ML IV SCH ×3 (04:14→21:13)
[2021-12-30 04:16] LABS: NUCLEATED RED BLOOD CELLS 4 /100WBC (0-0); TOTAL CELLS COUNTED 100
[2021-12-30 04:17] LABS: ANISOCYTOSIS 1+; PLATELET ESTIMATE DECREASED; TEAR DROP CELLS FEW
[2021-12-30 04:18] LABS: POLYCHROMASIA FEW; STOMATOCYTES FEW
[2021-12-30] MEDS: SODIUM ZIRCONIUM CYCLOSILICATE 10 GM POWD.PACK PO SCH (07:54)
[2021-12-30] MEDS: lansoprazole 15mg solutab NG SCH (07:54)
[2021-12-30] MEDS: MULTIVIT-MIN/FERROUS GLUCONATE 9 MG/15 ML LIQUID PO SCH (07:54)
[2021-12-30] MEDS: apixaban 5mg tablet NG SCH ×2 (07:55→20:56)
[2021-12-30] MEDS: aspirin 81mg tab.chew NG SCH (07:55)
[2021-12-30] MEDS: QUEtiapine 25mg tablet NG SCH ×2 (07:55→20:56)
[2021-12-30] MEDS: atorvastatin 10mg tablet NG SCH (07:55)
[2021-12-30] MEDS: zinc sulfate 220mg capsule PO SCH ×3 (07:55→20:56)
[2021-12-30] MEDS: lactobacillus rhamnosus 10,000 MMU CELLS/CAPSULE NG SCH ×2 (07:55→20:56)
[2021-12-30] MEDS: levoTHYROXINE 25mcg tablet NG SCH (07:55)
[2021-12-30] MEDS ORDERED: MULTIVIT-MIN/FERROUS GLUCONATE 9 MG/15 ML LIQUID OGT SCH (08:00)
[2021-12-30] MEDS: insulin regular, human U-100 3ml vial - multi-dose SQ SCH ×2 (08:12→14:15)
[2021-12-30] MEDS ORDERED: furosemide 40mg/4ml inj IV SCH (09:10)
[2021-12-30] MEDS ORDERED: DEXTROSE 15 GM of carb/4 tabs (each vial/BOTTLE has 4 tablets) NG PRN ×2 (14:30)
[2021-12-30] MEDS: fentaNYL/PF 50MCG/1 ML 2ML syringe IV PRN ×2 (15:13→22:49)
[2021-12-30] MEDS ORDERED: dextrose ORAL solution 15 GM/59 ML bottle NG PRN ×2 (15:15)
[2021-12-30] MEDS: insulin glargine (Lantus) pen - multi-dose SQ SCH (21:12)
[2021-12-30] MEDS ORDERED: propofol 1000mg/100ml bottle 100 ML IV ONE (21:15)
[2021-12-31] VITALS (27 sets, daily range): BP systolic 86–125; BP diastolic 43–70
[2021-12-31] MEDS: propofol 1000mg/100ml bottle 100 ML IV SCH ×5 (00:54→21:00)
[2021-12-31 03:18] LABS: ABG BASE EXCESS 7.1 mmol/L (-2.0-2.0); ABG HCO3 32.9 mmol/L (22.0-26.0); ABG OXYGEN SATURATION 91.8 % (94-97); ABG PCO2 (T) 56.8 mmHg (35.0-48.0); ABG PO2 (T) 66.6 mmHg (75.0-100.0); ALLEN'S TEST POSITIVE; FCOHb 1.4 % (0.0-3.9); FMetHb 0.5 % (0.0-1.5); FO2Hb 90.1 % (94-97); PATIENT TEMPERATURE 38.3; PEEP 12 cm H2O; RESPIRATORY RATE 28 b/min; TIDAL VOLUME 425 mL; TOTAL HEMOGLOBIN 9.5 G/dl (14.0-18.0)
[2021-12-31 03:38] LABS: BASOPHILS % (AUTO) 0.1 % (0-1); EOSINOPHILS % (AUTO) 0.3 % (0-6); HEMOGLOBIN 8.4 g/dl (14.0-17.9); MEAN CORPUSCULAR VOLUME 93.4 FL (78-98); MEAN PLATELET VOLUME 9.5 FL (7.4-10.4)
[2021-12-31 03:39] LABS: HEMATOCRIT 26.1 % (42.0-52.0); LYMPHOCYTES # (AUTO) 0.7 X10'3 (1.1-4.8); MEAN CORPUSCULAR HEMOGLOBIN 29.9 PG (27.0-31.0); MONOCYTES # (AUTO) 0.3 X10'3 (0-0.9); MONOCYTES % (AUTO) 2.1 % (2-12); NEUTROPHILS # (AUTO) 12.5 X10'3 (1.8-7.7); NEUTROPHILS % (AUTO) 92.5 % (42-75); PLATELET COUNT 113 X10'3 (140-440); RED CELL DISTRIBUTION WIDTH 17.8 % (11.5-14.5); WHITE BLOOD COUNT 13.5 X10'3 (4.5-11.0)
[2021-12-31] MEDS: midazolam 100mg in NS 100ml 100 ML IV PRN ×4 (03:59→23:38)
[2021-12-31 04:18] LABS: ALANINE AMINOTRANSFERASE 239 U/L (12-78); ALBUMIN 1.9 G/DL (3.4-5.0); ALBUMIN/GLOBULIN RATIO 0.7 (1.1-1.5); ALKALINE PHOSPHATASE 53 IU/L (46-116); ANION GAP 7 (8-16); ASPARTATE AMINO TRANSFERASE 79 U/L (10-37); BILIRUBIN,TOTAL 0.7 MG/DL (0.1-1.0); BLOOD UREA NITROGEN 45 MG/DL (7-18); BUN/CREATININE RATIO 73.8 (5.4-32.0); C-REACTIVE PROTEIN 6.02 MG/DL (0.0-0.5); CALCIUM 7.6 MG/DL (8.5-10.1); CHLORIDE 108 MMOL/L (99-107); CREATININE 0.61 MG/DL (0.60-1.10); GLUCOSE 83 MG/DL (70-104); POTASSIUM 3.8 MMOL/L (3.5-5.1); SODIUM 146 MMOL/L (135-145); TOTAL CARBON DIOXIDE 30.8 MMOL/L (24-32); TOTAL PROTEIN 4.6 G/DL (6.4-8.2); eGFR > 90 ML/MIN
[2021-12-31] MEDS: dexmedetomidine/D5W 100mL 100 ML IV SCH ×5 (05:37→21:31)
[2021-12-31] MEDS: NORepinephrine 8mg/ 250ml NS 250 ML IV SCH ×3 (07:12→21:01)
[2021-12-31 08:06] LABS: ANISOCYTOSIS 1+; NUCLEATED RED BLOOD CELLS 1 /100WBC (0-0); PLATELET ESTIMATE DECREASED; POLYCHROMASIA 2+; STOMATOCYTES 1+; TEAR DROP CELLS 1+; TOTAL CELLS COUNTED 100
[2021-12-31] MEDS: zinc sulfate 220mg capsule PO SCH ×3 (08:07→19:55)
[2021-12-31] MEDS: MULTIVIT-MIN/FERROUS GLUCONATE 9 MG/15 ML LIQUID PO SCH (08:07)
[2021-12-31] MEDS: apixaban 5mg tablet NG SCH ×2 (08:07→19:53)
[2021-12-31] MEDS: levoTHYROXINE 25mcg tablet NG SCH (08:07)
[2021-12-31] MEDS: QUEtiapine 25mg tablet NG SCH (08:07)
[2021-12-31] MEDS: lansoprazole 15mg solutab NG SCH (08:07)
[2021-12-31] MEDS: atorvastatin 10mg tablet NG SCH (08:08)
[2021-12-31] MEDS: furosemide 40mg/4ml inj IV SCH (08:08)
[2021-12-31] MEDS: aspirin 81mg tab.chew NG SCH (08:08)
[2021-12-31] MEDS: lactobacillus rhamnosus 10,000 MMU CELLS/CAPSULE NG SCH ×2 (08:08→19:53)
[2021-12-31] MEDS: SODIUM ZIRCONIUM CYCLOSILICATE 10 GM POWD.PACK PO SCH (08:09)
[2021-12-31 09:35] LABS: PHOSPHORUS 4.2 MG/DL (2.3-4.5)
[2021-12-31] MEDS ORDERED: VANCOmycin 2,000MG in NS 500ml IV soln IV ONE (11:30)
--- NOTE | 2021-12-31 12:03 | NUR ---
Reassessment: Pt remains intubated and tolerating TF at goal rate with GRV WNL. TC to RN who reports Propofol has been decreased, currently running at 20 mL/hr providing 528 kcal/day. TF recommendations have been updated and d/w RN, see below. LBM 12/28 per EMR though per RN pt with a BM last night which was more formed so rectal tube has been discontinued. Pt no longer receiving routine bowel care though with PRN bowel care available. Pt now receiving routine MVM with iron and zinc to assist with skin integrity/wound healing. Will continue to follow and monitor need for further adjustments to nutrition recommendations. Recommendations: 1) Given Propofol at 20 mL/hr (528 kcal/day), continuous Vital High Protein at 75 mL/hr to provide 1800 mL total volume/day, 1800 kcal, 158 g protein, and 1505 mL water. Only able to meet 83% minimum estimated protein needs given Propofol rate 2) IF Propofol discontinued, increase goal rate to 95 mL/hr using Vital High Protein to provide 2280 mL total volume/day, 2280 kcal, 200 g protein, and 1906 mL water 3) Monitor Propofol rate and need to further adjust TF recs 4) Water flush per MD given prior frequent low serum Na 5) Continue routine MVM with Iron and Zinc per MD 6) Prealbumin q Sunday/ 7) Daily scaled weights 8) Bowel care PRN; monitor need for routine bowel care 9) DM education once pt stable and has been provided with DM dx by physician after extubation; A1c 7.6% with no PMH DM per EMR Addendum: 12/31/21 at [address] Amended: Links added.
[2021-12-31] MEDS ORDERED: SODIUM ZIRCONIUM CYCLOSILICATE 10 GM POWD.PACK NG SCH (12:30)
[2021-12-31] MEDS: meropenem inj 1 GM in normal saline 100ml IV soln 100 ML IV SCH ×3 (13:06→23:38)
[2021-12-31] MEDS: micafungin inj 100 MG in normal saline 100ml IV soln 100 ML IV SCH (13:25)
[2021-12-31] MEDS: albumin (human) 25% 100 ML IV solution IV SCH ×2 (13:26→19:58)
[2021-12-31] MEDS: clonazePAM 1mg tablet PO SCH ×2 (15:57→23:41)
[2021-12-31] MEDS ORDERED: NOREPINEPHRINE BITARTRATE/D5W 250 ML IV PRN (17:20)
[2021-12-31] MEDS ORDERED: NORepinephrine 8mg/ 250ml NS 250 ML IV PRN (17:40)
[2021-12-31] MEDS: quetiapine 100mg tablet NG SCH (19:53)
[2021-12-31] MEDS: VANCOMYCIN 1GM/200ML IVPB 200 ML IV SCH (20:13)
[2021-12-31] MEDS: insulin glargine (Lantus) pen - multi-dose SQ SCH (20:15)
[2022-01-01] VITALS (38 sets, daily range): BP systolic 90–136; BP diastolic 49–77
[2022-01-01] MEDS: propofol 1000mg/100ml bottle 100 ML IV SCH ×6 (01:40→19:59)
[2022-01-01] MEDS: albumin (human) 25% 100 ML IV solution IV SCH ×2 (01:41→08:30)
[2022-01-01] MEDS: dexmedetomidine/D5W 100mL 100 ML IV SCH ×3 (01:42→16:56)
[2022-01-01] MEDS: insulin regular, human U-100 3ml vial - multi-dose SQ SCH (02:47)
[2022-01-01 02:49] LABS: BASOPHILS % (AUTO) 0.3 % (0-1); EOSINOPHILS % (AUTO) 0.4 % (0-6); LYMPHOCYTES # (AUTO) 0.2 X10'3 (1.1-4.8); LYMPHOCYTES % (AUTO) 2.4 % (21-51); MEAN CORPUSCULAR HEMOGLOBIN 29.8 PG (27.0-31.0); MEAN CORPUSCULAR HGB CONC 31.8 g/dL (33.0-36.5); MEAN CORPUSCULAR VOLUME 93.8 FL (78-98); MEAN PLATELET VOLUME 9.6 FL (7.4-10.4); MONOCYTES # (AUTO) 0.2 X10'3 (0-0.9); MONOCYTES % (AUTO) 2.6 % (2-12); NEUTROPHILS # (AUTO) 8.6 X10'3 (1.8-7.7); NEUTROPHILS % (AUTO) 94.3 % (42-75); PLATELET COUNT 89 X10'3 (140-440); RED BLOOD COUNT 2.28 X10'6 (4.70-6.10); RED CELL DISTRIBUTION WIDTH 19.2 % (11.5-14.5)
[2022-01-01 03:02] LABS: HEMATOCRIT 21.4 % (42.0-52.0); HEMOGLOBIN 6.8 g/dl (14.0-17.9)
[2022-01-01 03:13] LABS: ABG BASE EXCESS 2.4 mmol/L (-2.0-2.0); ABG HCO3 28.8 mmol/L (22.0-26.0); ABG OXYGEN SATURATION 91.8 % (94-97); ABG PCO2 (T) 56.7 mmHg (35.0-48.0); ABG PO2 (T) 66.3 mmHg (75.0-100.0); ALLEN'S TEST POSITIVE; FCOHb 2.3 % (0.0-3.9); FMetHb 0.3 % (0.0-1.5); FO2Hb 89.4 % (94-97); PATIENT TEMPERATURE 37.5; PEEP 12 cm H2O; RESPIRATORY RATE 28 b/min; TIDAL VOLUME 425 mL; TOTAL HEMOGLOBIN 7.8 G/dl (14.0-18.0)
[2022-01-01 03:15] LABS: ALANINE AMINOTRANSFERASE 155 U/L (12-78); ALBUMIN 2.3 G/DL (3.4-5.0); ALKALINE PHOSPHATASE 42 IU/L (46-116); ANION GAP 10 (8-16); ASPARTATE AMINO TRANSFERASE 44 U/L (10-37); BILIRUBIN,TOTAL 0.7 MG/DL (0.1-1.0); BLOOD UREA NITROGEN 38 MG/DL (7-18); BUN/CREATININE RATIO 67.9 (5.4-32.0); CALCIUM 7.6 MG/DL (8.5-10.1); CHLORIDE 109 MMOL/L (99-107); CREATININE 0.56 MG/DL (0.60-1.10); GLUCOSE 125 MG/DL (70-104); POTASSIUM 3.4 MMOL/L (3.5-5.1); SODIUM 150 MMOL/L (135-145); TOTAL CARBON DIOXIDE 31.2 MMOL/L (24-32); TOTAL PROTEIN 4.6 G/DL (6.4-8.2); eGFR > 90 ML/MIN
[2022-01-01 03:23] LABS: C-REACTIVE PROTEIN 27.58 MG/DL (0.0-0.5)
[2022-01-01 03:37] LABS: MEAN CORPUSCULAR HEMOGLOBIN 29.7 PG (27.0-31.0); MEAN CORPUSCULAR HGB CONC 31.3 g/dL (33.0-36.5); MEAN CORPUSCULAR VOLUME 94.7 FL (78-98); MEAN PLATELET VOLUME 9.4 FL (7.4-10.4); PLATELET COUNT 90 X10'3 (140-440); RED BLOOD COUNT 2.33 X10'6 (4.70-6.10); RED CELL DISTRIBUTION WIDTH 19.4 % (11.5-14.5); WHITE BLOOD COUNT 8.7 X10'3 (4.5-11.0)
[2022-01-01 03:46] LABS: HEMOGLOBIN 6.9 g/dl (14.0-17.9)
[2022-01-01] MEDS: VANCOMYCIN 1GM/200ML IVPB 200 ML IV SCH ×3 (05:29→20:08)
[2022-01-01 05:54] LABS: APTT 31 SECONDS (22-32); D-DIMER 1.95 MG/L FEU (0-0.50)
[2022-01-01 06:02] LABS: PLATELET COUNT 90 X10'3 (140-440)
[2022-01-01 06:49] LABS: TOTAL CELLS COUNTED 100
[2022-01-01 06:50] LABS: ANISOCYTOSIS 2+; HYPOCHROMASIA 1+; PLATELET ESTIMATE DECREASED; POLYCHROMASIA 1+; TEAR DROP CELLS 1+
[2022-01-01 06:51] LABS: STOMATOCYTES 2+
[2022-01-01] MEDS: midazolam 100mg in NS 100ml 100 ML IV PRN ×2 (07:01→16:57)
[2022-01-01] MEDS: MULTIVIT-MIN/FERROUS GLUCONATE 9 MG/15 ML LIQUID NG SCH (08:30)
[2022-01-01] MEDS: furosemide 40mg/4ml inj IV SCH (08:30)
[2022-01-01] MEDS: meropenem inj 1 GM in normal saline 100ml IV soln 100 ML IV SCH ×2 (08:31→16:06)
[2022-01-01] MEDS: atorvastatin 10mg tablet NG SCH (08:31)
[2022-01-01] MEDS: lansoprazole 15mg solutab NG SCH (08:31)
[2022-01-01] MEDS: clonazePAM 1mg tablet PO SCH ×2 (08:31→16:07)
[2022-01-01] MEDS: levoTHYROXINE 25mcg tablet NG SCH (08:31)
[2022-01-01] MEDS: quetiapine 100mg tablet NG SCH ×2 (08:31→19:59)
[2022-01-01] MEDS: zinc sulfate 220mg capsule PO SCH ×3 (08:31→20:00)
[2022-01-01] MEDS: aspirin 81mg tab.chew NG SCH (08:31)
[2022-01-01] MEDS: micafungin inj 100 MG in normal saline 100ml IV soln 100 ML IV SCH (08:32)
[2022-01-01] MEDS: lactobacillus rhamnosus 10,000 MMU CELLS/CAPSULE NG SCH ×2 (08:32→19:59)
[2022-01-01] MEDS: NORepinephrine 8mg/ 250ml NS 250 ML IV SCH ×3 (09:54→20:21)
[2022-01-01 10:17] LABS: PHOSPHORUS 3.2 MG/DL (2.3-4.5)
[2022-01-01] MEDS ORDERED: potassium Cl 40MEQ/1/2NS 520ml 520 ML IV PRN (11:05)
[2022-01-01] MEDS ORDERED: potassium Cl 40MEQ/250ML bag 250 ML IV PRN (11:05)
[2022-01-01] MEDS: hydrocortisone sod succ/PF 100mg/2ml inj. IV SCH ×2 (11:10→16:06)
[2022-01-01] MEDS ORDERED: VANCOMYCIN LEVEL IV ONE (12:30)
[2022-01-01 12:48] LABS: BASOPHILS % (AUTO) 0.2 % (0-1); EOSINOPHILS % (AUTO) 0.7 % (0-6); HEMOGLOBIN 7.4 g/dl (14.0-17.9); LYMPHOCYTES # (AUTO) 0.2 X10'3 (1.1-4.8); LYMPHOCYTES % (AUTO) 2.6 % (21-51); MEAN CORPUSCULAR HEMOGLOBIN 32.6 PG (27.0-31.0); MEAN CORPUSCULAR HGB CONC 34.6 g/dL (33.0-36.5); MEAN CORPUSCULAR VOLUME 94.1 FL (78-98); MEAN PLATELET VOLUME 9.8 FL (7.4-10.4); MONOCYTES # (AUTO) 0.2 X10'3 (0-0.9); MONOCYTES % (AUTO) 3.3 % (2-12); NEUTROPHILS # (AUTO) 6.6 X10'3 (1.8-7.7); NEUTROPHILS % (AUTO) 93.2 % (42-75); PLATELET COUNT 78 X10'3 (140-440); RED BLOOD COUNT 2.28 X10'6 (4.70-6.10); RED CELL DISTRIBUTION WIDTH 18.1 % (11.5-14.5); WHITE BLOOD COUNT 7.1 X10'3 (4.5-11.0)
[2022-01-01] MEDS: potassium Cl 20mEq/100mL bag 100 ML IV PRN ×2 (12:50→16:58)
[2022-01-01] MEDS: docusate sodium 100mg/10ml UD cup PO SCH (19:59)
[2022-01-01] MEDS: insulin glargine (Lantus) pen - multi-dose SQ SCH (20:01)
[2022-01-01 20:05] LABS: BASOPHILS % (AUTO) 0.2 % (0-1); EOSINOPHILS % (AUTO) 0.1 % (0-6); HEMATOCRIT 23.9 % (42.0-52.0); HEMOGLOBIN 7.7 g/dl (14.0-17.9); LYMPHOCYTES # (AUTO) 0.1 X10'3 (1.1-4.8); LYMPHOCYTES % (AUTO) 1.4 % (21-51); MEAN CORPUSCULAR HEMOGLOBIN 30.4 PG (27.0-31.0); MEAN CORPUSCULAR HGB CONC 32.3 g/dL (33.0-36.5); MEAN PLATELET VOLUME 9.6 FL (7.4-10.4); MONOCYTES # (AUTO) 0.2 X10'3 (0-0.9); MONOCYTES % (AUTO) 2.7 % (2-12); NEUTROPHILS % (AUTO) 95.6 % (42-75); PLATELET COUNT 84 X10'3 (140-440); RED BLOOD COUNT 2.55 X10'6 (4.70-6.10); RED CELL DISTRIBUTION WIDTH 17.4 % (11.5-14.5); WHITE BLOOD COUNT 8.4 X10'3 (4.5-11.0)
[2022-01-02] VITALS (34 sets, daily range): BP systolic 96–122; BP diastolic 54–73
[2022-01-02] MEDS: dexmedetomidine/D5W 100mL 100 ML IV SCH (00:03)
[2022-01-02] MEDS: propofol 1000mg/100ml bottle 100 ML IV SCH ×6 (00:04→20:32)
[2022-01-02] MEDS: clonazePAM 1mg tablet PO SCH ×3 (00:04→16:03)
[2022-01-02] MEDS: midazolam 100mg in NS 100ml 100 ML IV PRN ×5 (00:04→17:47)
[2022-01-02] MEDS: meropenem inj 1 GM in normal saline 100ml IV soln 100 ML IV SCH ×2 (00:05→07:37)
[2022-01-02] MEDS: hydrocortisone sod succ/PF 100mg/2ml inj. IV SCH ×3 (00:08→16:03)
[2022-01-02 02:55] LABS: ABG HCO3 26.8 mmol/L (22.0-26.0); ABG PCO2 (T) 46.5 mmHg (35.0-48.0); ABG PO2 (T) 54.8 mmHg (75.0-100.0); ALLEN'S TEST POSITIVE; FCOHb 1.4 % (0.0-3.9); FMetHb 0.2 % (0.0-1.5); FO2Hb 88.6 % (94-97); PATIENT TEMPERATURE 35.9; PEEP 14 cm H2O; RESPIRATORY RATE 28 b/min; TIDAL VOLUME 425 mL; TOTAL HEMOGLOBIN 8.5 G/dl (14.0-18.0)
[2022-01-02 03:32] LABS: BASOPHILS % (AUTO) 0 % (0-1); EOSINOPHILS % (AUTO) 0.2 % (0-6); HEMATOCRIT 23.5 % (42.0-52.0); HEMOGLOBIN 7.7 g/dl (14.0-17.9); LYMPHOCYTES # (AUTO) 0.1 X10'3 (1.1-4.8); LYMPHOCYTES % (AUTO) 1.7 % (21-51); MEAN CORPUSCULAR HEMOGLOBIN 30.8 PG (27.0-31.0); MEAN CORPUSCULAR HGB CONC 32.9 g/dL (33.0-36.5); MEAN CORPUSCULAR VOLUME 93.8 FL (78-98); MEAN PLATELET VOLUME 9.8 FL (7.4-10.4); MONOCYTES # (AUTO) 0.3 X10'3 (0-0.9); MONOCYTES % (AUTO) 3.5 % (2-12); NEUTROPHILS # (AUTO) 7.2 X10'3 (1.8-7.7); NEUTROPHILS % (AUTO) 94.6 % (42-75); PLATELET COUNT 84 X10'3 (140-440); RED BLOOD COUNT 2.51 X10'6 (4.70-6.10); RED CELL DISTRIBUTION WIDTH 17.8 % (11.5-14.5); WHITE BLOOD COUNT 7.6 X10'3 (4.5-11.0)
[2022-01-02 04:10] LABS: ALANINE AMINOTRANSFERASE 133 U/L (12-78); ALBUMIN 2.2 G/DL (3.4-5.0); ALBUMIN/GLOBULIN RATIO 0.8 (1.1-1.5); ALKALINE PHOSPHATASE 46 IU/L (46-116); ANION GAP 10 (8-16); ASPARTATE AMINO TRANSFERASE 36 U/L (10-37); BILIRUBIN,TOTAL 0.7 MG/DL (0.1-1.0); BLOOD UREA NITROGEN 38 MG/DL (7-18); BUN/CREATININE RATIO 57.6 (5.4-32.0); CALCIUM 7.9 MG/DL (8.5-10.1); CHLORIDE 110 MMOL/L (99-107); CREATININE 0.66 MG/DL (0.60-1.10); GLUCOSE 169 MG/DL (70-104); POTASSIUM 3.3 MMOL/L (3.5-5.1); PREALBUMIN 15.4 MG/DL (19-36); SODIUM 150 MMOL/L (135-145); TOTAL CARBON DIOXIDE 29.9 MMOL/L (24-32); TOTAL PROTEIN 4.9 G/DL (6.4-8.2); eGFR > 90 ML/MIN
[2022-01-02] MEDS: VANCOMYCIN 1GM/200ML IVPB 200 ML IV SCH ×3 (04:31→20:28)
[2022-01-02] MEDS: potassium Cl 20mEq/100mL bag 100 ML IV PRN ×3 (05:07→11:14)
[2022-01-02 06:27] LABS: HEMATOCRIT 21.5 % (42.0-52.0)
[2022-01-02] MEDS: levoTHYROXINE 25mcg tablet NG SCH (07:36)
[2022-01-02] MEDS: atorvastatin 10mg tablet NG SCH (07:36)
[2022-01-02] MEDS: lactobacillus rhamnosus 10,000 MMU CELLS/CAPSULE NG SCH ×2 (07:36→20:27)
[2022-01-02] MEDS: lansoprazole 15mg solutab NG SCH (07:36)
[2022-01-02] MEDS: quetiapine 100mg tablet NG SCH ×2 (07:36→20:27)
[2022-01-02] MEDS: aspirin 81mg tab.chew NG SCH (07:36)
[2022-01-02] MEDS: zinc sulfate 220mg capsule PO SCH (07:37)
[2022-01-02] MEDS: docusate sodium 100mg/10ml UD cup PO SCH ×2 (07:37→20:27)
[2022-01-02] MEDS: MULTIVIT-MIN/FERROUS GLUCONATE 9 MG/15 ML LIQUID NG SCH (07:37)
[2022-01-02] MEDS: micafungin inj 100 MG in normal saline 100ml IV soln 100 ML IV SCH (07:38)
[2022-01-02] MEDS: insulin regular, human U-100 3ml vial - multi-dose SQ SCH ×3 (08:46→21:37)
[2022-01-02] MEDS: levoFLOXACIN-Levaquin 750MG/D5 150 ML IV SCH (11:14)
--- NOTE | 2022-01-02 11:25 | NUR ---
F/u 01/02: Pt TF stopped last night w/ GRV's 350-450ml all night per EMR; now 0ml w/ TF restarted at 50ml/hr this AM per RN. Pt LBM 12/28 receiving routine bowel regimen w/ dulcolax first dose today per EMR. RD d/w RN may benefit from post-pyloric feeds if MD agreeable. Per RN; pt Propofol at 35ml/hr providing additional 924 kcals/day. Updated TF recs below; MÓNICA d/w RN and notified MD. Unable to meet minimum estimated protein needs given Propofol rate. Recommendations: 1) Given Propofol at 35mL/hr (528 kcal/day), continuous Vital High Protein at 60mL/hr to provide 1440mL volume/day, 1440 kcal, 126g protein, and 1210mL water. Only able to meet 66% minimum estimated protein needs given Propofol rate 2) IF Propofol discontinued, increase goal rate to 95 mL/hr using Vital High Protein to provide 2280 mL total volume/day, 2280 kcal, 200 g protein, and 1906 mL water 3) Monitor Propofol rate and need to further adjust TF recs 4) Water flush per MD given prior frequent low serum Na 5) Continue routine MVM with Iron and Zinc per MD 6) PALB Q /; Daily scaled wts 7) Routine Bowel care; 5 days constipation 8) DM education once pt stable and has been provided with DM dx by physician after extubation; A1c 7.6% with no PMH DM per EMR Addendum: 01/02/22 at [address] Amended: Links added.
[2022-01-02] MEDS: NORepinephrine 8mg/ 250ml NS 250 ML IV SCH ×2 (12:36→21:30)
[2022-01-02] MEDS: insulin glargine (Lantus) pen - multi-dose SQ SCH (21:36)
[2022-01-03] VITALS (35 sets, daily range): BP systolic 95–131; BP diastolic 51–80
[2022-01-03] MEDS: propofol 1000mg/100ml bottle 100 ML IV SCH ×9 (00:07→23:45)
[2022-01-03] MEDS: midazolam 100mg in NS 100ml 100 ML IV PRN ×6 (00:07→23:44)
[2022-01-03] MEDS: hydrocortisone sod succ/PF 100mg/2ml inj. IV SCH ×4 (00:08→23:29)
[2022-01-03] MEDS: clonazePAM 1mg tablet PO SCH ×4 (00:08→23:30)
[2022-01-03] MEDS: dexmedetomidine/D5W 100mL 100 ML IV SCH ×4 (02:35→22:40)
[2022-01-03] MEDS: insulin regular, human U-100 3ml vial - multi-dose SQ SCH ×4 (03:18→21:10)
[2022-01-03 03:21] LABS: BASOPHILS % (AUTO) 0.2 % (0-1); EOSINOPHILS % (AUTO) 0.2 % (0-6); HEMATOCRIT 24.6 % (42.0-52.0); LYMPHOCYTES # (AUTO) 0.2 X10'3 (1.1-4.8); LYMPHOCYTES % (AUTO) 2.2 % (21-51); MEAN CORPUSCULAR HEMOGLOBIN 30.5 PG (27.0-31.0); MEAN CORPUSCULAR HGB CONC 32.5 g/dL (33.0-36.5); MEAN CORPUSCULAR VOLUME 93.8 FL (78-98); MEAN PLATELET VOLUME 9.4 FL (7.4-10.4); MONOCYTES # (AUTO) 0.2 X10'3 (0-0.9); MONOCYTES % (AUTO) 3.3 % (2-12); NEUTROPHILS # (AUTO) 6.6 X10'3 (1.8-7.7); NEUTROPHILS % (AUTO) 94.1 % (42-75); PLATELET COUNT 117 X10'3 (140-440); RED BLOOD COUNT 2.62 X10'6 (4.70-6.10); RED CELL DISTRIBUTION WIDTH 18.3 % (11.5-14.5)
[2022-01-03 03:40] LABS: ABG BASE EXCESS 0.1 mmol/L (-2.0-2.0); ABG OXYGEN SATURATION 92.5 % (94-97); ABG PCO2 (T) 60.5 mmHg (35.0-48.0); ABG PO2 (T) 63.2 mmHg (75.0-100.0); ALLEN'S TEST POSITIVE; FCOHb 1.9 % (0.0-3.9); FO2Hb 90.7 % (94-97); PATIENT TEMPERATURE 36.6; PEEP 14 cm H2O; RESPIRATORY RATE 28 b/min; TIDAL VOLUME 425 mL; TOTAL HEMOGLOBIN 12.2 G/dl (14.0-18.0)
[2022-01-03 03:42] LABS: ALANINE AMINOTRANSFERASE 128 U/L (12-78); ALBUMIN/GLOBULIN RATIO 0.7 (1.1-1.5); ALKALINE PHOSPHATASE 49 IU/L (46-116); ANION GAP 9 (8-16); ASPARTATE AMINO TRANSFERASE 31 U/L (10-37); BILIRUBIN,TOTAL 0.5 MG/DL (0.1-1.0); BLOOD UREA NITROGEN 41 MG/DL (7-18); BUN/CREATININE RATIO 69.5 (5.4-32.0); CALCIUM 8.1 MG/DL (8.5-10.1); CHLORIDE 111 MMOL/L (99-107); CREATININE 0.59 MG/DL (0.60-1.10); GLUCOSE 166 MG/DL (70-104); POTASSIUM 3.1 MMOL/L (3.5-5.1); SODIUM 150 MMOL/L (135-145); TOTAL CARBON DIOXIDE 29.8 MMOL/L (24-32); TOTAL PROTEIN 4.9 G/DL (6.4-8.2); TRIGLYCERIDES 141 MG/DL (20-135); eGFR > 90 ML/MIN
[2022-01-03] MEDS: VANCOMYCIN 1GM/200ML IVPB 200 ML IV SCH ×3 (06:23→21:01)
[2022-01-03] MEDS: NORepinephrine 8mg/ 250ml NS 250 ML IV SCH ×3 (06:24→23:25)
[2022-01-03] MEDS ORDERED: amiodarone 150mg/dext, iso-os 100 ML IV ONE (07:20)
[2022-01-03] MEDS ORDERED: amiodarone/D5 450MG/250ML BAG 250 ML IV SCH (07:20)
[2022-01-03] MEDS: levoTHYROXINE 25mcg tablet NG SCH (07:38)
[2022-01-03] MEDS: lansoprazole 15mg solutab NG SCH (07:38)
[2022-01-03] MEDS: atorvastatin 10mg tablet NG SCH (07:38)
[2022-01-03] MEDS: MULTIVIT-MIN/FERROUS GLUCONATE 9 MG/15 ML LIQUID NG SCH (07:39)
[2022-01-03] MEDS: docusate sodium 100mg/10ml UD cup PO SCH ×2 (07:39→21:00)
[2022-01-03] MEDS: levoFLOXACIN-Levaquin 750MG/D5 150 ML IV SCH (07:39)
[2022-01-03] MEDS: quetiapine 100mg tablet NG SCH ×2 (07:39→21:00)
[2022-01-03] MEDS: lactobacillus rhamnosus 10,000 MMU CELLS/CAPSULE NG SCH ×2 (07:39→21:00)
[2022-01-03] MEDS: micafungin inj 100 MG in normal saline 100ml IV soln 100 ML IV SCH (07:39)
[2022-01-03] MEDS: aspirin 81mg tab.chew NG SCH (07:39)
[2022-01-03] MEDS: potassium Cl 20mEq/100mL bag 100 ML IV PRN ×4 (08:20→11:41)
[2022-01-03] MEDS: amiodarone/D5 450MG/250ML BAG 250 ML IV SCH (15:21)
[2022-01-03] MEDS: potassium Cl 20 mEq SR tablet PO PRN ×2 (16:41→21:03)
[2022-01-03] MEDS: insulin glargine (Lantus) pen - multi-dose SQ SCH (21:09)
[2022-01-03] MEDS: ipratropium/albuterol 3ml nebule NEB PRN (23:22)
[2022-01-04] VITALS (36 sets, daily range): BP systolic 10–121; BP diastolic 52–74
[2022-01-04 03:25] LABS: ABG BASE EXCESS 3.2 mmol/L (-2.0-2.0); ABG HCO3 31.1 mmol/L (22.0-26.0); ABG OXYGEN SATURATION 93.7 % (94-97); ABG PCO2 (T) 67.7 mmHg (35.0-48.0); ABG PO2 (T) 68.6 mmHg (75.0-100.0); ALLEN'S TEST POSITIVE; FCOHb 1.8 % (0.0-3.9); FMetHb 0.1 % (0.0-1.5); FO2Hb 91.9 % (94-97); PATIENT TEMPERATURE 36.6; PEEP 14 cm H2O; RESPIRATORY RATE 28 b/min; TOTAL HEMOGLOBIN 9.1 G/dl (14.0-18.0)
[2022-01-04 03:32] LABS: BASOPHILS % (AUTO) 0.4 % (0-1); EOSINOPHILS % (AUTO) 0.7 % (0-6); HEMATOCRIT 24.9 % (42.0-52.0); HEMOGLOBIN 7.8 g/dl (14.0-17.9); LYMPHOCYTES # (AUTO) 0.2 X10'3 (1.1-4.8); LYMPHOCYTES % (AUTO) 2.9 % (21-51); MEAN CORPUSCULAR HEMOGLOBIN 30.1 PG (27.0-31.0); MEAN CORPUSCULAR HGB CONC 31.5 g/dL (33.0-36.5); MEAN CORPUSCULAR VOLUME 95.4 FL (78-98); MEAN PLATELET VOLUME 9.4 FL (7.4-10.4); MONOCYTES # (AUTO) 0.3 X10'3 (0-0.9); MONOCYTES % (AUTO) 4.7 % (2-12); NEUTROPHILS # (AUTO) 6.3 X10'3 (1.8-7.7); NEUTROPHILS % (AUTO) 91.3 % (42-75); PLATELET COUNT 119 X10'3 (140-440); RED BLOOD COUNT 2.61 X10'6 (4.70-6.10); RED CELL DISTRIBUTION WIDTH 19.1 % (11.5-14.5); WHITE BLOOD COUNT 6.9 X10'3 (4.5-11.0)
[2022-01-04 03:39] LABS: D-DIMER 1.91 MG/L FEU (0-0.50)
[2022-01-04] MEDS: midazolam 100mg in NS 100ml 100 ML IV PRN ×4 (03:55→20:11)
[2022-01-04] MEDS: propofol 1000mg/100ml bottle 100 ML IV SCH ×6 (03:55→23:20)
[2022-01-04] MEDS: insulin regular, human U-100 3ml vial - multi-dose SQ SCH ×2 (04:09→09:06)
[2022-01-04 04:10] LABS: ALANINE AMINOTRANSFERASE 124 U/L (12-78); ALBUMIN 1.9 G/DL (3.4-5.0); ALBUMIN/GLOBULIN RATIO 0.7 (1.1-1.5); ANION GAP 10 (8-16); ASPARTATE AMINO TRANSFERASE 31 U/L (10-37); BILIRUBIN,TOTAL 0.6 MG/DL (0.1-1.0); BLOOD UREA NITROGEN 41 MG/DL (7-18); BUN/CREATININE RATIO 66.1 (5.4-32.0); C-REACTIVE PROTEIN 7.67 MG/DL (0.0-0.5); CALCIUM 7.9 MG/DL (8.5-10.1); CHLORIDE 110 MMOL/L (99-107); CREATININE 0.62 MG/DL (0.60-1.10); GLUCOSE 143 MG/DL (70-104); POTASSIUM 4.1 MMOL/L (3.5-5.1); SODIUM 149 MMOL/L (135-145); TOTAL CARBON DIOXIDE 29.1 MMOL/L (24-32); TOTAL PROTEIN 4.7 G/DL (6.4-8.2); TRIGLYCERIDES 103 MG/DL (20-135); eGFR > 90 ML/MIN
[2022-01-04] MEDS: VANCOMYCIN 1GM/200ML IVPB 200 ML IV SCH (04:49)
[2022-01-04 05:01] LABS: ANISOCYTOSIS 2+; PLATELET ESTIMATE DECREASED; POLYCHROMASIA FEW
[2022-01-04] MEDS: dexmedetomidine/D5W 100mL 100 ML IV SCH ×3 (05:20→18:40)
[2022-01-04] MEDS: lactobacillus rhamnosus 10,000 MMU CELLS/CAPSULE NG SCH ×2 (07:12→20:11)
[2022-01-04] MEDS: atorvastatin 10mg tablet NG SCH (07:12)
[2022-01-04] MEDS: lansoprazole 15mg solutab NG SCH (07:12)
[2022-01-04] MEDS: quetiapine 100mg tablet NG SCH ×2 (07:12→20:11)
[2022-01-04] MEDS: amiodarone/D5 450MG/250ML BAG 250 ML IV SCH (07:12)
[2022-01-04] MEDS: levoTHYROXINE 25mcg tablet NG SCH (07:13)
[2022-01-04] MEDS: aspirin 81mg tab.chew NG SCH (07:13)
[2022-01-04] MEDS: hydrocortisone sod succ/PF 100mg/2ml inj. IV SCH ×2 (07:13→20:12)
[2022-01-04] MEDS: clonazePAM 1mg tablet PO SCH ×2 (07:13→15:52)
[2022-01-04] MEDS: MULTIVIT-MIN/FERROUS GLUCONATE 9 MG/15 ML LIQUID NG SCH (07:13)
[2022-01-04] MEDS: docusate sodium 100mg/10ml UD cup PO SCH ×2 (07:13→20:11)
[2022-01-04] MEDS: micafungin inj 100 MG in normal saline 100ml IV soln 100 ML IV SCH (07:13)
[2022-01-04] MEDS: levoFLOXACIN-Levaquin 750MG/D5 150 ML IV SCH (07:14)
[2022-01-04] MEDS: NORepinephrine 8mg/ 250ml NS 250 ML IV SCH ×2 (09:06→18:00)
[2022-01-04] MEDS ORDERED: polyethylene glycol 3350 17gm powd pack PO PRN (10:40)
[2022-01-04] MEDS: amiodarone 200mg tablet PO SCH ×2 (11:18→20:11)
[2022-01-04] MEDS: metolazone 2.5mg tablet PO SCH ×2 (11:18→20:11)
[2022-01-04] MEDS: furosemide 20 MG/2 ML vial IV SCH ×3 (11:24→20:11)
--- NOTE | 2022-01-04 14:58 | NUR ---
F/u 01/04: Pt remains intubated and tolerating TF at goal rate with GRV WNL. Per RN Propofol rate at 30 mL/hr, providing 792 kcals/day. Unable to meet minimum estimated protein needs given Propofol rate. Noted elevated serum Na, Water flush of 200 ml q 4 hr ordered today per MD. Pt last documented BM 12/28, receiving routine bowel w/ first dose of PRN Miralax given 01/04. agriculture intern d/w RN possible need for additional bowel care. RN stated pt had BM 01/02 and simón on 01/04, though not documented. Will continue to monitor. Recommendations: 1) Given Propofol at 30mL/hr (792 kcal/day), continuous Vital High Protein at 60mL/hr to provide 1440mL volume/day, 1440 kcal, 126g protein, and 1204mL water. Only able to meet 66% minimum estimated protein needs given Propofol rate 2) IF Propofol discontinued, increase goal rate to 95 mL/hr using Vital High Protein to provide 2280 mL total volume/day, 2280 kcal, 200 g protein, and 1906 mL water 3) Monitor Propofol rate and need to further adjust TF recs 4) 200 ml water flushes q 4 hr per MD; monitor serum Na 5) Continue routine MVM with Iron per MD 6) PALB Q /; Daily scaled wts 7) Routine Bowel care; utilize PRN bowel care 8) DM education once pt stable and has been provided with DM dx by physician after extubation; A1c 7.6% with no PMH DM per EMR Addendum: 01/04/22 at 1458 by Cody Gonzalez - Real Estate Site Analyst RD Amended: Links added. Addendum: 01/04/22 at [address] I have reviewed and agree with note by Real Estate Site AnalystDelmi Mae RD
[2022-01-04] MEDS: potassium Cl 20 mEq SR tablet PO PRN (15:52)
[2022-01-04] MEDS: enoxaparin 40mg/0.4ml syringe SUBCUT SCH (20:13)
[2022-01-04] MEDS: insulin glargine (Lantus) pen - multi-dose SQ SCH (20:13)
[2022-01-05] VITALS (36 sets, daily range): BP systolic 84–119; BP diastolic 46–68
[2022-01-05] MEDS: clonazePAM 1mg tablet PO SCH ×4 (00:19→23:44)
[2022-01-05] MEDS: dexmedetomidine/D5W 100mL 100 ML IV SCH ×4 (00:20→21:20)
[2022-01-05] MEDS: NORepinephrine 8mg/ 250ml NS 250 ML IV SCH ×3 (00:21→16:37)
[2022-01-05] MEDS: midazolam 100mg in NS 100ml 100 ML IV PRN ×2 (00:29→05:33)
[2022-01-05] MEDS: furosemide 20 MG/2 ML vial IV SCH ×4 (01:55→20:33)
[2022-01-05] MEDS: propofol 1000mg/100ml bottle 100 ML IV SCH ×6 (01:56→18:06)
[2022-01-05 03:20] LABS: BASOPHILS % (AUTO) 0.1 % (0-1); EOSINOPHILS % (AUTO) 0.3 % (0-6); HEMATOCRIT 24.1 % (42.0-52.0); HEMOGLOBIN 7.6 g/dl (14.0-17.9); LYMPHOCYTES # (AUTO) 0.2 X10'3 (1.1-4.8); LYMPHOCYTES % (AUTO) 3.3 % (21-51); MEAN CORPUSCULAR HEMOGLOBIN 29.6 PG (27.0-31.0); MEAN CORPUSCULAR HGB CONC 31.7 g/dL (33.0-36.5); MEAN CORPUSCULAR VOLUME 93.4 FL (78-98); MEAN PLATELET VOLUME 9.3 FL (7.4-10.4); MONOCYTES # (AUTO) 0.3 X10'3 (0-0.9); MONOCYTES % (AUTO) 4.6 % (2-12); NEUTROPHILS # (AUTO) 6.9 X10'3 (1.8-7.7); NEUTROPHILS % (AUTO) 91.7 % (42-75); PLATELET COUNT 132 X10'3 (140-440); RED BLOOD COUNT 2.58 X10'6 (4.70-6.10); RED CELL DISTRIBUTION WIDTH 18.5 % (11.5-14.5); WHITE BLOOD COUNT 7.5 X10'3 (4.5-11.0)
[2022-01-05 03:32] LABS: D-DIMER 2.08 MG/L FEU (0-0.50)
[2022-01-05 03:52] LABS: ALANINE AMINOTRANSFERASE 116 U/L (12-78); ALBUMIN 1.8 G/DL (3.4-5.0); ALBUMIN/GLOBULIN RATIO 0.6 (1.1-1.5); ALKALINE PHOSPHATASE 55 IU/L (46-116); ANION GAP 8 (8-16); ASPARTATE AMINO TRANSFERASE 33 U/L (10-37); BILIRUBIN,TOTAL 0.6 MG/DL (0.1-1.0); BLOOD UREA NITROGEN 43 MG/DL (7-18); BUN/CREATININE RATIO 65.2 (5.4-32.0); C-REACTIVE PROTEIN 8.38 MG/DL (0.0-0.5); CALCIUM 8.1 MG/DL (8.5-10.1); CHLORIDE 108 MMOL/L (99-107); CREATININE 0.66 MG/DL (0.60-1.10); GLUCOSE 77 MG/DL (70-104); POTASSIUM 3.5 MMOL/L (3.5-5.1); PREALBUMIN 17.5 MG/DL (19-36); SODIUM 150 MMOL/L (135-145); TOTAL CARBON DIOXIDE 34.1 MMOL/L (24-32); TOTAL PROTEIN 4.7 G/DL (6.4-8.2); eGFR > 90 ML/MIN
[2022-01-05 03:55] LABS: ABG BASE EXCESS 8.6 mmol/L (-2.0-2.0); ABG HCO3 35.4 mmol/L (22.0-26.0); ABG OXYGEN SATURATION 91.9 % (94-97); ABG PCO2 (T) 63.9 mmHg (35.0-48.0); ABG PO2 (T) 59.7 mmHg (75.0-100.0); ALLEN'S TEST Modified; FCOHb 2.3 % (0.0-3.9); FMetHb 0.2 % (0.0-1.5); FO2Hb 89.6 % (94-97); PATIENT TEMPERATURE 37.1; PEEP 14 cm H2O; RESPIRATORY RATE 28 b/min; TOTAL HEMOGLOBIN 9.1 G/dl (14.0-18.0)
--- NOTE | 2022-01-05 06:42 | NUR ---
Patient in room CICU 2006. I have received report from Amparo PRECIADO and had the opportunity to ask questions and assume patient care.
[2022-01-05 07:25] LABS: MAGNESIUM 1.8 MG/DL (1.5-2.4)
[2022-01-05] MEDS: levoFLOXACIN-Levaquin 750MG/D5 150 ML IV SCH (07:34)
[2022-01-05] MEDS: docusate sodium 100mg/10ml UD cup PO SCH ×2 (07:35→20:33)
[2022-01-05] MEDS: metolazone 2.5mg tablet PO SCH ×2 (07:35→20:44)
[2022-01-05] MEDS: micafungin inj 100 MG in normal saline 100ml IV soln 100 ML IV SCH (07:35)
[2022-01-05] MEDS: MULTIVIT-MIN/FERROUS GLUCONATE 9 MG/15 ML LIQUID NG SCH (07:35)
[2022-01-05] MEDS: hydrocortisone sod succ/PF 100mg/2ml inj. IV SCH ×2 (07:35→20:33)
[2022-01-05] MEDS: atorvastatin 10mg tablet NG SCH (07:36)
[2022-01-05] MEDS: lactobacillus rhamnosus 10,000 MMU CELLS/CAPSULE NG SCH ×2 (07:36→20:33)
[2022-01-05] MEDS: levoTHYROXINE 25mcg tablet NG SCH (07:36)
[2022-01-05] MEDS: quetiapine 100mg tablet NG SCH ×2 (07:36→20:33)
[2022-01-05] MEDS: aspirin 81mg tab.chew NG SCH (07:36)
[2022-01-05] MEDS: lansoprazole 15mg solutab NG SCH (07:36)
[2022-01-05] MEDS: amiodarone 200mg tablet PO SCH ×2 (07:36→20:33)
[2022-01-05 07:51] LABS: PHOSPHORUS 2.8 MG/DL (2.3-4.5)
[2022-01-05] MEDS ORDERED: fentaNYL/PF 50MCG/1 ML 2ML syringe IV PRN (10:15)
[2022-01-05] MEDS ORDERED: FENTANYL CITRATE/D5W/PF 100 ML IV PRN (10:15)
[2022-01-05] MEDS ORDERED: FENTANYL-0.9 % NACL/PF 100 ML IV PRN (10:35)
[2022-01-05] MEDS: FENTANYL-0.9 % NACL/PF 100 ML IV PRN (18:06)
--- NOTE | 2022-01-05 18:18 | NUR ---
Problems reprioritized. Patient report given, questions answered & plan of care reviewed with Amparo PRECIADO.
[2022-01-05] MEDS: enoxaparin 40mg/0.4ml syringe SUBCUT SCH (20:34)
[2022-01-05] MEDS: insulin glargine (Lantus) pen - multi-dose SQ SCH (20:44)
[2022-01-06] VITALS (38 sets, daily range): BP systolic 83–117; BP diastolic 45–72
[2022-01-06] MEDS: furosemide 20 MG/2 ML vial IV SCH ×4 (02:07→20:00)
[2022-01-06] MEDS: propofol 1000mg/100ml bottle 100 ML IV SCH ×3 (02:07→23:14)
[2022-01-06] MEDS: FENTANYL-0.9 % NACL/PF 100 ML IV PRN ×3 (02:08→21:14)
[2022-01-06 02:33] LABS: BASOPHILS % (AUTO) 0.1 % (0-1); EOSINOPHILS % (AUTO) 0.2 % (0-6); HEMATOCRIT 24.9 % (42.0-52.0); HEMOGLOBIN 8.1 g/dl (14.0-17.9); LYMPHOCYTES # (AUTO) 0.3 X10'3 (1.1-4.8); LYMPHOCYTES % (AUTO) 3.7 % (21-51); MEAN CORPUSCULAR HGB CONC 32.5 g/dL (33.0-36.5); MEAN CORPUSCULAR VOLUME 92.2 FL (78-98); MEAN PLATELET VOLUME 8.8 FL (7.4-10.4); MONOCYTES # (AUTO) 0.3 X10'3 (0-0.9); NEUTROPHILS # (AUTO) 7.8 X10'3 (1.8-7.7); PLATELET COUNT 147 X10'3 (140-440); RED CELL DISTRIBUTION WIDTH 18.4 % (11.5-14.5); WHITE BLOOD COUNT 8.4 X10'3 (4.5-11.0)
[2022-01-06 02:43] LABS: D-DIMER 2.24 MG/L FEU (0-0.50)
[2022-01-06 02:51] LABS: ALANINE AMINOTRANSFERASE 113 U/L (12-78); ALBUMIN 1.7 G/DL (3.4-5.0); ALBUMIN/GLOBULIN RATIO 0.5 (1.1-1.5); ALKALINE PHOSPHATASE 58 IU/L (46-116); ANION GAP 6 (8-16); ASPARTATE AMINO TRANSFERASE 34 U/L (10-37); BILIRUBIN,TOTAL 0.8 MG/DL (0.1-1.0); BLOOD UREA NITROGEN 47 MG/DL (7-18); BUN/CREATININE RATIO 63.5 (5.4-32.0); C-REACTIVE PROTEIN 12.36 MG/DL (0.0-0.5); CALCIUM 8.2 MG/DL (8.5-10.1); CHLORIDE 103 MMOL/L (99-107); CREATININE 0.74 MG/DL (0.60-1.10); GLUCOSE 183 MG/DL (70-104); MAGNESIUM 1.6 MG/DL (1.5-2.4); SODIUM 147 MMOL/L (135-145); TOTAL CARBON DIOXIDE 37.8 MMOL/L (24-32); TOTAL PROTEIN 4.9 G/DL (6.4-8.2); VANCOMYCIN,TROUGH 12.5 UG/ML (6.0-14.0); eGFR > 90 ML/MIN
[2022-01-06 02:56] LABS: POTASSIUM 2.8 MMOL/L (3.5-5.1)
[2022-01-06] MEDS: potassium Cl 20mEq/100mL bag 100 ML IV PRN ×5 (03:01→14:34)
[2022-01-06] MEDS: potassium Cl 20 mEq SR tablet PO PRN (03:01)
[2022-01-06] MEDS: insulin regular, human U-100 3ml vial - multi-dose SQ SCH ×4 (03:03→21:24)
[2022-01-06] MEDS: dexmedetomidine/D5W 100mL 100 ML IV SCH ×3 (03:04→16:22)
[2022-01-06 03:42] LABS: ABG BASE EXCESS 12.2 mmol/L (-2.0-2.0); ABG HCO3 38.9 mmol/L (22.0-26.0); ABG OXYGEN SATURATION 94.2 % (94-97); ABG PCO2 (T) 62.8 mmHg (35.0-48.0); ABG PO2 (T) 70.7 mmHg (75.0-100.0); FCOHb 2.4 % (0.0-3.9); FO2Hb 91.9 % (94-97); PATIENT TEMPERATURE 36.6; PEEP 14 cm H2O; RESPIRATORY RATE 28 b/min; TOTAL HEMOGLOBIN 9.7 G/dl (14.0-18.0)
[2022-01-06 04:14] LABS: PLATELET ESTIMATE NORMAL; TOTAL CELLS COUNTED 100
[2022-01-06 04:16] LABS: POLYCHROMASIA FEW; STOMATOCYTES 1+; TEAR DROP CELLS FEW
[2022-01-06] MEDS ORDERED: VANCOMYCIN LEVEL IV ONE (04:30)
[2022-01-06] MEDS: NORepinephrine 8mg/ 250ml NS 250 ML IV SCH ×3 (05:36→23:24)
[2022-01-06] MEDS: levoFLOXACIN-Levaquin 750MG/D5 150 ML IV SCH (07:57)
[2022-01-06] MEDS: hydrocortisone sod succ/PF 100mg/2ml inj. IV SCH ×2 (07:59→20:00)
[2022-01-06] MEDS: micafungin inj 100 MG in normal saline 100ml IV soln 100 ML IV SCH (07:59)
[2022-01-06] MEDS: atorvastatin 10mg tablet NG SCH (08:00)
[2022-01-06] MEDS: aspirin 81mg tab.chew NG SCH (08:00)
[2022-01-06] MEDS: lansoprazole 15mg solutab NG SCH (08:00)
[2022-01-06] MEDS: quetiapine 100mg tablet NG SCH ×2 (08:00→20:00)
[2022-01-06] MEDS: MULTIVIT-MIN/FERROUS GLUCONATE 9 MG/15 ML LIQUID NG SCH (08:00)
[2022-01-06] MEDS: lactobacillus rhamnosus 10,000 MMU CELLS/CAPSULE NG SCH ×2 (08:00→20:00)
[2022-01-06] MEDS: docusate sodium 100mg/10ml UD cup PO SCH ×2 (08:00→20:00)
[2022-01-06] MEDS: levoTHYROXINE 25mcg tablet NG SCH (08:00)
[2022-01-06] MEDS: clonazePAM 1mg tablet PO SCH ×2 (08:00→15:34)
[2022-01-06] MEDS: amiodarone 200mg tablet PO SCH ×2 (08:57→09:04)
[2022-01-06] MEDS: metolazone 2.5mg tablet PO SCH ×2 (09:00→20:00)
[2022-01-06 11:13] LABS: MAGNESIUM 1.5 MG/DL (1.5-2.4)
[2022-01-06] MEDS: magnesium 2GM in 50ml NS 50 ML IV PRN (11:58)
[2022-01-06] MEDS: magnesium 4gm in 100ml NS 100 ML IV PRN (11:58)
--- NOTE | 2022-01-06 17:58 | NUR ---
Shift synopsis Upon arrival for shift, patient is in and out of SR and a-fib (controlled rate). Patient begins to have surges of a-fib in the 150's unsustained. However, then the patient begins sustaining a-fib in 140's. We recheck K+ and Mg and treat accordingly along with his PO amiodarone. Patient did convert back in to SR after this. (See MAR) Patient has diaereses successfully. I had him weaned off of the Levophed for a few hours as well, but he required restarting it. He was comfortable down to 5mcg/kg of Propol, but I bumped him back up to 15 during the high a-fib. Patient was taken from 75 to 70% fiO2 upon arrival to shift, however, his O2 sat decreased to 89/90%, thus, I had to return to 75% which is kept him in the mid-90's for the day. Spouse verbalizes concern that his ecchymosis/hematoma to his left flank looks darker and firmer today compared to yesterday. We will continue to watch HGB. I provide education of covid, clotting/bleeding issues, stability of patient, and qualifications of intervention regarding these complications. Patient has low to no residuals and has a small, soft, brown stool today. Patient is now a level 3 for nutritional insulin protocol.
[2022-01-06] MEDS: enoxaparin 40mg/0.4ml syringe SUBCUT SCH (20:00)
[2022-01-06] MEDS: insulin glargine (Lantus) pen - multi-dose SQ SCH (21:25)
[2022-01-07] VITALS (33 sets, daily range): BP systolic 83–124; BP diastolic 47–80
[2022-01-07] MEDS: dexmedetomidine/D5W 100mL 100 ML IV SCH
[2022-01-07] MEDS: clonazePAM 1mg tablet PO SCH ×2 (00:53→07:42)
[2022-01-07 02:20] LABS: BASOPHILS % (AUTO) 0.2 % (0-1); EOSINOPHILS % (AUTO) 0.3 % (0-6); HEMATOCRIT 25.8 % (42.0-52.0); HEMOGLOBIN 8.6 g/dl (14.0-17.9); LYMPHOCYTES # (AUTO) 0.3 X10'3 (1.1-4.8); LYMPHOCYTES % (AUTO) 3.4 % (21-51); MEAN CORPUSCULAR HEMOGLOBIN 30.4 PG (27.0-31.0); MEAN CORPUSCULAR HGB CONC 33.4 g/dL (33.0-36.5); MEAN CORPUSCULAR VOLUME 91.1 FL (78-98); MEAN PLATELET VOLUME 8.6 FL (7.4-10.4); MONOCYTES # (AUTO) 0.2 X10'3 (0-0.9); MONOCYTES % (AUTO) 2.9 % (2-12); NEUTROPHILS # (AUTO) 6.8 X10'3 (1.8-7.7); NEUTROPHILS % (AUTO) 93.2 % (42-75); PLATELET COUNT 167 X10'3 (140-440); RED BLOOD COUNT 2.83 X10'6 (4.70-6.10); RED CELL DISTRIBUTION WIDTH 18.3 % (11.5-14.5); WHITE BLOOD COUNT 7.3 X10'3 (4.5-11.0)
[2022-01-07] MEDS: insulin regular, human U-100 3ml vial - multi-dose SQ SCH ×4 (02:38→20:41)
[2022-01-07] MEDS: furosemide 20 MG/2 ML vial IV SCH ×4 (02:43→19:16)
[2022-01-07 02:48] LABS: ALANINE AMINOTRANSFERASE 110 U/L (12-78); ALBUMIN 1.9 G/DL (3.4-5.0); ALBUMIN/GLOBULIN RATIO 0.6 (1.1-1.5); ALKALINE PHOSPHATASE 67 IU/L (46-116); ANION GAP 6 (8-16); ASPARTATE AMINO TRANSFERASE 34 U/L (10-37); BILIRUBIN,TOTAL 0.9 MG/DL (0.1-1.0); BLOOD UREA NITROGEN 47 MG/DL (7-18); BUN/CREATININE RATIO 63.5 (5.4-32.0); CALCIUM 8.5 MG/DL (8.5-10.1); CHLORIDE 101 MMOL/L (99-107); CREATININE 0.74 MG/DL (0.60-1.10); GLUCOSE 189 MG/DL (70-104); MAGNESIUM 2.2 MG/DL (1.5-2.4); PHOSPHORUS 2.9 MG/DL (2.3-4.5); SODIUM 148 MMOL/L (135-145); TOTAL PROTEIN 5.3 G/DL (6.4-8.2); eGFR > 90 ML/MIN
[2022-01-07 02:52] LABS: POTASSIUM 2.9 MMOL/L (3.5-5.1); TOTAL CARBON DIOXIDE 40.9 MMOL/L (24-32)
[2022-01-07] MEDS: potassium CL 10mEq/100ml bag 100 ML IV PRN ×2 (03:06→04:20)
[2022-01-07] MEDS: potassium Cl 20mEq/100mL bag 100 ML IV PRN ×6 (05:29→17:10)
[2022-01-07] MEDS: magnesium 4gm in 100ml NS 100 ML IV PRN (05:29)
[2022-01-07] MEDS: FENTANYL-0.9 % NACL/PF 100 ML IV PRN ×2 (05:47→16:02)
[2022-01-07] MEDS: docusate sodium 100mg/10ml UD cup PO SCH (07:40)
[2022-01-07] MEDS: levoFLOXACIN-Levaquin 750MG/D5 150 ML IV SCH (07:40)
[2022-01-07] MEDS: hydrocortisone sod succ/PF 100mg/2ml inj. IV SCH ×2 (07:40→19:16)
[2022-01-07] MEDS: MULTIVIT-MIN/FERROUS GLUCONATE 9 MG/15 ML LIQUID NG SCH (07:40)
[2022-01-07] MEDS: micafungin inj 100 MG in normal saline 100ml IV soln 100 ML IV SCH (07:41)
[2022-01-07] MEDS: levoTHYROXINE 25mcg tablet NG SCH (07:41)
[2022-01-07] MEDS: atorvastatin 10mg tablet NG SCH (07:41)
[2022-01-07] MEDS: lactobacillus rhamnosus 10,000 MMU CELLS/CAPSULE NG SCH ×2 (07:41→19:13)
[2022-01-07] MEDS: metolazone 2.5mg tablet PO SCH (07:41)
[2022-01-07] MEDS: aspirin 81mg tab.chew NG SCH (07:41)
[2022-01-07] MEDS: amiodarone 200mg tablet PO SCH (07:42)
[2022-01-07] MEDS: lansoprazole 15mg solutab NG SCH (07:42)
[2022-01-07] MEDS: quetiapine 100mg tablet NG SCH ×2 (07:42→19:13)
[2022-01-07] MEDS: propofol 1000mg/100ml bottle 100 ML IV SCH ×3 (09:23→19:08)
--- NOTE | 2022-01-07 11:49 | NUR ---
Reassessment: Pt remains intubated and tolerating TF at goal rate with GRV WNL. TC to RN who confirms Propofol has been reduced to 20 mcg/kg/min (17.616 mL/hr) which provides 423 kcal/day. Recommend increasing TF goal rate to 80 mL/hr to optimize nutrition status, d/w RN and EMR updated. LBM 01/06, with a small BM per lung gun operator. Pt with routine bowel care available and last received PRN bowel care 01/04 per EMR. Confirmed by RN that pt no longer has a rectal tube in place. Will continue to follow. Recommendations: 1) Given Propofol at 17.616 mL/hr (423 kcal/day), continuous Vital High Protein at 80 mL/hr to provide 1920 mL volume/day, 1920 kcal, 168 g protein, and 1605 mL water. Able to meet 88% minimum estimated protein needs given Propofol rate 2) IF Propofol discontinued, increase goal rate to 95 mL/hr using Vital High Protein to provide 2280 mL total volume/day, 2280 kcal, 200 g protein, and 1906 mL water 3) Monitor Propofol rate and need to further adjust TF recs 4) Additional 200 mL water flush Q4H per MD; monitor serum Na 5) Continue routine MVM with Iron per MD 6) PALB q / 7) Daily scaled wts 8) Routine Bowel care; utilize PRN bowel care 9) DM education once pt stable and has been provided with DM dx by physician after extubation; A1c 7.6% with no PMH DM per EMR Addendum: 01/07/22 at [address] Amended: Links added.
[2022-01-07] MEDS ORDERED: amiodarone 200mg tablet OGT SCH (12:42)
[2022-01-07] MEDS ORDERED: polyethylene glycol 3350 17gm powd pack OGT PRN (12:54)
--- NOTE | 2022-01-07 13:48 | NUR ---
F/u: Received TC from RN stating Propofol has been increased to 40 mcg/kg/min (35.232 mL/hr) and likely to remain at this rate. Current Propofol rate is providing 930 kcal/day. Recommend resuming previous TF recommendations with goal rate of 60 mL/hr, EMR updated. Will continue to follow. Recommendations: 1) Given Propofol at 35.232 mL/hr (930 kcal/day), continuous Vital High Protein at 60 mL/hr to provide 1440 mL volume/day, 1440 kcal, 126 g protein, and 1204 mL water. Only able to meet 66% minimum estimated protein needs given Propofol rate 2) IF Propofol discontinued, increase goal rate to 95 mL/hr using Vital High Protein to provide 2280 mL total volume/day, 2280 kcal, 200 g protein, and 1906 mL water 3) Monitor Propofol rate and need to further adjust TF recs 4) Additional 200 mL water flush Q4H per MD; monitor serum Na 5) Continue routine MVM with Iron per MD 6) PALB q / 7) Daily scaled wts 8) Routine Bowel care; utilize PRN bowel care 9) DM education once pt stable and has been provided with DM dx by physician after extubation; A1c 7.6% with no PMH DM per EMR Addendum: 01/07/22 at [address] Amended: Links added.
[2022-01-07 15:54] LABS: ABG BASE EXCESS 21.2 mmol/L (-2.0-2.0); ABG HCO3 48.4 mmol/L (22.0-26.0); ABG OXYGEN SATURATION 78.1 % (94-97); ABG PCO2 (T) 73.2 mmHg (35.0-48.0); ABG PO2 (T) 42.1 mmHg (75.0-100.0); ALLEN'S TEST POSITIVE; FCOHb 1.3 % (0.0-3.9); FMetHb 0.2 % (0.0-1.5); FO2Hb 76.9 % (94-97); PATIENT TEMPERATURE 36.7; RESPIRATORY RATE 28 b/min; TOTAL HEMOGLOBIN 8.8 G/dl (14.0-18.0)
[2022-01-07] MEDS: clonazePAM 1mg tablet OGT SCH (16:14)
[2022-01-07] MEDS: NORepinephrine 8mg/ 250ml NS 250 ML IV SCH (17:12)
[2022-01-07] MEDS: amiodarone 200mg tablet OGT SCH (19:14)
[2022-01-07] MEDS: metolazone 2.5mg tablet OGT SCH (19:14)
[2022-01-07] MEDS: enoxaparin 40mg/0.4ml syringe SUBCUT SCH (19:15)
[2022-01-07] MEDS: docusate sodium 100mg/10ml UD cup OGT SCH (19:16)
[2022-01-07] MEDS: insulin glargine (Lantus) pen - multi-dose SQ SCH (20:39)
[2022-01-07 21:59] LABS: ALBUMIN 1.9 G/DL (3.4-5.0); ANION GAP 4 (8-16); BLOOD UREA NITROGEN 51 MG/DL (7-18); BUN/CREATININE RATIO 70.8 (5.4-32.0); CALCIUM 8.4 MG/DL (8.5-10.1); CHLORIDE 98 MMOL/L (99-107); CREATININE 0.72 MG/DL (0.60-1.10); POTASSIUM 3.4 MMOL/L (3.5-5.1); SODIUM 146 MMOL/L (135-145); eGFR > 90 ML/MIN
[2022-01-07 22:10] LABS: GLUCOSE 111 MG/DL (70-104)
[2022-01-07 22:12] LABS: TOTAL CARBON DIOXIDE 44.2 MMOL/L (24-32)
[2022-01-08] VITALS (34 sets, daily range): BP systolic 86–117; BP diastolic 44–79
[2022-01-08] MEDS: NORepinephrine 8mg/ 250ml NS 250 ML IV SCH ×4 (00:34→15:07)
[2022-01-08] MEDS: clonazePAM 1mg tablet OGT SCH ×3 (00:36→15:59)
[2022-01-08] MEDS: FENTANYL-0.9 % NACL/PF 100 ML IV PRN ×3 (00:53→23:44)
[2022-01-08] MEDS: propofol 1000mg/100ml bottle 100 ML IV SCH ×6 (00:56→21:21)
[2022-01-08] MEDS: furosemide 20 MG/2 ML vial IV SCH ×4 (02:28→20:42)
[2022-01-08 03:03] LABS: BASOPHILS % (AUTO) 0.2 % (0-1); EOSINOPHILS % (AUTO) 0.3 % (0-6); HEMATOCRIT 26.9 % (42.0-52.0); HEMOGLOBIN 8.7 g/dl (14.0-17.9); LYMPHOCYTES # (AUTO) 0.3 X10'3 (1.1-4.8); LYMPHOCYTES % (AUTO) 5.2 % (21-51); MEAN CORPUSCULAR HEMOGLOBIN 29.6 PG (27.0-31.0); MEAN CORPUSCULAR HGB CONC 32.3 g/dL (33.0-36.5); MEAN CORPUSCULAR VOLUME 91.6 FL (78-98); MEAN PLATELET VOLUME 8.5 FL (7.4-10.4); MONOCYTES # (AUTO) 0.2 X10'3 (0-0.9); MONOCYTES % (AUTO) 3.4 % (2-12); NEUTROPHILS # (AUTO) 5.1 X10'3 (1.8-7.7); NEUTROPHILS % (AUTO) 90.9 % (42-75); PLATELET COUNT 187 X10'3 (140-440); RED BLOOD COUNT 2.94 X10'6 (4.70-6.10); RED CELL DISTRIBUTION WIDTH 18.6 % (11.5-14.5); WHITE BLOOD COUNT 5.6 X10'3 (4.5-11.0)
[2022-01-08 03:54] LABS: ALANINE AMINOTRANSFERASE 110 U/L (12-78); ALBUMIN 1.9 G/DL (3.4-5.0); ALBUMIN/GLOBULIN RATIO 0.5 (1.1-1.5); ALKALINE PHOSPHATASE 67 IU/L (46-116); ANION GAP 5 (8-16); ASPARTATE AMINO TRANSFERASE 36 U/L (10-37); BILIRUBIN,TOTAL 0.9 MG/DL (0.1-1.0); BLOOD UREA NITROGEN 53 MG/DL (7-18); BUN/CREATININE RATIO 71.6 (5.4-32.0); CALCIUM 8.8 MG/DL (8.5-10.1); CHLORIDE 98 MMOL/L (99-107); CREATININE 0.74 MG/DL (0.60-1.10); GLUCOSE 118 MG/DL (70-104); PHOSPHORUS 3.1 MG/DL (2.3-4.5); POTASSIUM 3.4 MMOL/L (3.5-5.1); SODIUM 148 MMOL/L (135-145); TOTAL PROTEIN 5.6 G/DL (6.4-8.2); eGFR > 90 ML/MIN
[2022-01-08 03:57] LABS: TOTAL CARBON DIOXIDE 44.6 MMOL/L (24-32)
[2022-01-08] MEDS: magnesium 2GM in 50ml NS 50 ML IV PRN (05:48)
[2022-01-08] MEDS: potassium Cl 20mEq/100mL bag 100 ML IV PRN ×8 (05:48→23:40)
[2022-01-08] MEDS: levoTHYROXINE 25mcg tablet NG SCH (07:12)
[2022-01-08] MEDS: hydrocortisone sod succ/PF 100mg/2ml inj. IV SCH ×2 (07:12→20:43)
[2022-01-08] MEDS: MULTIVIT-MIN/FERROUS GLUCONATE 9 MG/15 ML LIQUID NG SCH (07:12)
[2022-01-08] MEDS: quetiapine 100mg tablet NG SCH ×2 (07:12→20:43)
[2022-01-08] MEDS: docusate sodium 100mg/10ml UD cup OGT SCH ×2 (07:12→20:00)
[2022-01-08] MEDS: lansoprazole 15mg solutab NG SCH (07:13)
[2022-01-08] MEDS: lactobacillus rhamnosus 10,000 MMU CELLS/CAPSULE NG SCH ×2 (07:13→20:43)
[2022-01-08] MEDS: levoFLOXACIN-Levaquin 750MG/D5 150 ML IV SCH (07:13)
[2022-01-08] MEDS: aspirin 81mg tab.chew NG SCH (07:14)
[2022-01-08] MEDS: amiodarone 200mg tablet OGT SCH ×2 (07:14→20:43)
[2022-01-08] MEDS: atorvastatin 10mg tablet NG SCH (07:14)
[2022-01-08] MEDS: metolazone 2.5mg tablet OGT SCH ×2 (07:15→20:43)
[2022-01-08] MEDS: micafungin inj 100 MG in normal saline 100ml IV soln 100 ML IV SCH (07:17)
[2022-01-08 07:32] LABS: ABG BASE EXCESS 18.3 mmol/L (-2.0-2.0); ABG HCO3 44.9 mmol/L (22.0-26.0); ABG OXYGEN SATURATION 93.2 % (94-97); ABG PCO2 (T) 64.7 mmHg (35.0-48.0); ABG PO2 (T) 66.6 mmHg (75.0-100.0); ALLEN'S TEST POSITIVE; FCOHb 1.5 % (0.0-3.9); FMetHb 0.1 % (0.0-1.5); FO2Hb 91.7 % (94-97); PATIENT TEMPERATURE 36.9; RESPIRATORY RATE 28 b/min; TOTAL HEMOGLOBIN 10.1 G/dl (14.0-18.0)
[2022-01-08] MEDS: insulin regular, human U-100 3ml vial - multi-dose SQ SCH ×3 (08:00→20:22)
[2022-01-08] MEDS ORDERED: mineral oil/petrolatum ophthal oint EACHEYE PRN (12:35)
[2022-01-08] MEDS: potassium Cl 20 mEq SR tablet OGT PRN ×3 (14:06→17:40)
[2022-01-08] MEDS: insulin glargine (Lantus) pen - multi-dose SQ SCH (20:20)
[2022-01-08] MEDS: enoxaparin 40mg/0.4ml syringe SUBCUT SCH (20:43)
[2022-01-09] VITALS (27 sets, daily range): BP systolic 79–126; BP diastolic 50–79
[2022-01-09] MEDS: clonazePAM 1mg tablet OGT SCH ×3 (00:22→16:00)
[2022-01-09] MEDS: potassium Cl 20mEq/100mL bag 100 ML IV PRN ×3 (00:48→07:08)
[2022-01-09] MEDS: propofol 1000mg/100ml bottle 100 ML IV SCH ×5 (00:48→16:03)
--- NOTE | 2022-01-09 01:17 | NUR ---
Weekly wound photos taken and placed in chart.
[2022-01-09] MEDS: furosemide 20 MG/2 ML vial IV SCH ×2 (02:09→07:22)
[2022-01-09] MEDS: insulin regular, human U-100 3ml vial - multi-dose SQ SCH ×3 (02:21→14:33)
[2022-01-09 02:56] LABS: BASOPHILS % (AUTO) 0.4 % (0-1); EOSINOPHILS % (AUTO) 0.4 % (0-6); HEMATOCRIT 26.3 % (42.0-52.0); HEMOGLOBIN 8.5 g/dl (14.0-17.9); LYMPHOCYTES # (AUTO) 0.4 X10'3 (1.1-4.8); MEAN CORPUSCULAR HEMOGLOBIN 29.6 PG (27.0-31.0); MEAN CORPUSCULAR HGB CONC 32.3 g/dL (33.0-36.5); MEAN CORPUSCULAR VOLUME 91.6 FL (78-98); MEAN PLATELET VOLUME 8.3 FL (7.4-10.4); MONOCYTES # (AUTO) 0.2 X10'3 (0-0.9); MONOCYTES % (AUTO) 3.8 % (2-12); NEUTROPHILS # (AUTO) 5.2 X10'3 (1.8-7.7); NEUTROPHILS % (AUTO) 89.4 % (42-75); PLATELET COUNT 198 X10'3 (140-440); RED BLOOD COUNT 2.88 X10'6 (4.70-6.10); RED CELL DISTRIBUTION WIDTH 18.6 % (11.5-14.5); WHITE BLOOD COUNT 5.8 X10'3 (4.5-11.0)
[2022-01-09 03:28] LABS: ALANINE AMINOTRANSFERASE 110 U/L (12-78); ALBUMIN 1.9 G/DL (3.4-5.0); ALBUMIN/GLOBULIN RATIO 0.5 (1.1-1.5); ALKALINE PHOSPHATASE 66 IU/L (46-116); ASPARTATE AMINO TRANSFERASE 42 U/L (10-37); BILIRUBIN,TOTAL 0.9 MG/DL (0.1-1.0); BLOOD UREA NITROGEN 57 MG/DL (7-18); BUN/CREATININE RATIO 67.1 (5.4-32.0); CALCIUM 8.8 MG/DL (8.5-10.1); CHLORIDE 99 MMOL/L (99-107); CREATININE 0.85 MG/DL (0.60-1.10); GLUCOSE 182 MG/DL (70-104); MAGNESIUM 1.9 MG/DL (1.5-2.4); PHOSPHORUS 3.1 MG/DL (2.3-4.5); POTASSIUM 3.9 MMOL/L (3.5-5.1); SODIUM 148 MMOL/L (135-145); TOTAL PROTEIN 5.5 G/DL (6.4-8.2); eGFR > 90 ML/MIN
[2022-01-09 03:52] LABS: ABG BASE EXCESS 23.3 mmol/L (-2.0-2.0); ABG HCO3 49.3 mmol/L (22.0-26.0); ABG OXYGEN SATURATION 91.1 % (94-97); ABG PCO2 (T) 62.6 mmHg (35.0-48.0); ALLEN'S TEST POSITIVE; FCOHb 1.6 % (0.0-3.9); FO2Hb 89.6 % (94-97); PATIENT TEMPERATURE 37.1; PEEP 14 cm H2O; RESPIRATORY RATE 28 b/min; TOTAL HEMOGLOBIN 9.8 G/dl (14.0-18.0)
[2022-01-09 03:54] LABS: ANION GAP 1 (8-16)
[2022-01-09 03:56] LABS: TOTAL CARBON DIOXIDE 48.2 MMOL/L (24-32)
[2022-01-09] MEDS: NORepinephrine 8mg/ 250ml NS 250 ML IV SCH ×3 (04:48→22:36)
[2022-01-09] MEDS: magnesium 2GM in 50ml NS 50 ML IV PRN ×2 (04:54→07:09)
[2022-01-09] MEDS: FENTANYL-0.9 % NACL/PF 100 ML IV PRN ×2 (07:09→15:59)
[2022-01-09] MEDS: lactobacillus rhamnosus 10,000 MMU CELLS/CAPSULE NG SCH ×2 (07:20→20:10)
[2022-01-09] MEDS: lansoprazole 15mg solutab NG SCH (07:20)
[2022-01-09] MEDS: quetiapine 100mg tablet NG SCH (07:20)
[2022-01-09] MEDS: levoTHYROXINE 25mcg tablet NG SCH (07:20)
[2022-01-09] MEDS: atorvastatin 10mg tablet NG SCH (07:20)
[2022-01-09] MEDS: amiodarone 200mg tablet OGT SCH ×2 (07:21→20:10)
[2022-01-09] MEDS: hydrocortisone sod succ/PF 100mg/2ml inj. IV SCH ×2 (07:21→20:10)
[2022-01-09] MEDS: metolazone 2.5mg tablet OGT SCH (07:21)
[2022-01-09] MEDS: MULTIVIT-MIN/FERROUS GLUCONATE 9 MG/15 ML LIQUID NG SCH (07:21)
[2022-01-09] MEDS: docusate sodium 100mg/10ml UD cup OGT SCH ×2 (07:21→20:10)
[2022-01-09] MEDS: aspirin 81mg tab.chew NG SCH (07:21)
[2022-01-09] MEDS: micafungin inj 100 MG in normal saline 100ml IV soln 100 ML IV SCH (07:22)
[2022-01-09] MEDS: levoFLOXACIN-Levaquin 750MG/D5 150 ML IV SCH (07:22)
--- NOTE | 2022-01-09 12:10 | NUR ---
F/u 01/09: RD confirmed w/ RN that Propofol now at 30mcg/kg/min (26.424ml/hr) providing additional 698 kcals/day. MÓNICA d/w RN and notified MD of new TF rate w/ Vital High Protein of 70ml/hr; updated TF recs below. Noted free water flushes stopped per bonderizer. Recommendations: 1) Given Propofol at 26.424mL/hr (698 kcal/day), continuous TF using Vital High Protein at 70mL/hr to provide 1680mL volume/day, 1680 kcals, 147g protein, and 1404mL water. Only able to meet 77% minimum estimated protein needs given Propofol rate 2) IF Propofol discontinued, increase goal rate to 95 mL/hr using Vital High Protein to provide 2280 mL total volume/day, 2280 kcal, 200 g protein, and 1906 mL water 3) Monitor Propofol rate and need to further adjust TF recs 4) Additional water flush per bonderizer 5) Continue routine MVM with Iron per MD 6) PALB q ; Daily scaled wts 7) Routine Bowel care; utilize PRN bowel care Addendum: 01/09/22 at [address] Amended: Links added.
[2022-01-09 16:20] LABS: ABG BASE EXCESS 23.7 mmol/L (-2.0-2.0); ABG HCO3 50.8 mmol/L (22.0-26.0); ABG OXYGEN SATURATION 87.7 % (94-97); ABG PO2 (T) 54.4 mmHg (75.0-100.0); ALLEN'S TEST POSITIVE; FCOHb 1.5 % (0.0-3.9); FMetHb 0.3 % (0.0-1.5); FO2Hb 86.1 % (94-97); PATIENT TEMPERATURE 36.8; PEEP 14 cm H2O; RESPIRATORY RATE 25 b/min; TIDAL VOLUME 350 mL; TOTAL HEMOGLOBIN 9.8 G/dl (14.0-18.0)
[2022-01-09] MEDS: enoxaparin 40mg/0.4ml syringe SUBCUT SCH (20:10)
[2022-01-09] MEDS: insulin glargine (Lantus) pen - multi-dose SQ SCH (21:00)
[2022-01-10] VITALS (27 sets, daily range): BP systolic 95–125; BP diastolic 55–74
[2022-01-10] MEDS: FENTANYL-0.9 % NACL/PF 100 ML IV PRN ×4 (00:51→18:55)
[2022-01-10 03:02] LABS: BASOPHILS # (AUTO) 0.1 X10'3 (0-0.2); BASOPHILS % (AUTO) 1.1 % (0-1); EOSINOPHILS % (AUTO) 0.3 % (0-6); HEMATOCRIT 25.6 % (42.0-52.0); HEMOGLOBIN 8.8 g/dl (14.0-17.9); LYMPHOCYTES # (AUTO) 0.3 X10'3 (1.1-4.8); LYMPHOCYTES % (AUTO) 3.7 % (21-51); MEAN CORPUSCULAR HEMOGLOBIN 31.7 PG (27.0-31.0); MEAN CORPUSCULAR HGB CONC 34.5 g/dL (33.0-36.5); MEAN CORPUSCULAR VOLUME 91.8 FL (78-98); MEAN PLATELET VOLUME 8.4 FL (7.4-10.4); MONOCYTES # (AUTO) 0.2 X10'3 (0-0.9); MONOCYTES % (AUTO) 3.4 % (2-12); NEUTROPHILS # (AUTO) 6.5 X10'3 (1.8-7.7); NEUTROPHILS % (AUTO) 91.5 % (42-75); PLATELET COUNT 212 X10'3 (140-440); RED BLOOD COUNT 2.78 X10'6 (4.70-6.10); RED CELL DISTRIBUTION WIDTH 18.9 % (11.5-14.5); WHITE BLOOD COUNT 7.1 X10'3 (4.5-11.0)
[2022-01-10 03:50] LABS: ALANINE AMINOTRANSFERASE 101 U/L (12-78); ALBUMIN 1.9 G/DL (3.4-5.0); ALBUMIN/GLOBULIN RATIO 0.5 (1.1-1.5); ALKALINE PHOSPHATASE 64 IU/L (46-116); ANION GAP 4 (8-16); ASPARTATE AMINO TRANSFERASE 44 U/L (10-37); BILIRUBIN,TOTAL 0.9 MG/DL (0.1-1.0); BLOOD UREA NITROGEN 49 MG/DL (7-18); BUN/CREATININE RATIO 77.8 (5.4-32.0); CALCIUM 8.4 MG/DL (8.5-10.1); CHLORIDE 93 MMOL/L (99-107); CREATININE 0.63 MG/DL (0.60-1.10); GLUCOSE 206 MG/DL (70-104); MAGNESIUM 2.1 MG/DL (1.5-2.4); POTASSIUM 3.3 MMOL/L (3.5-5.1); SODIUM 141 MMOL/L (135-145); TOTAL PROTEIN 5.5 G/DL (6.4-8.2); eGFR > 90 ML/MIN
[2022-01-10 04:00] LABS: TOTAL CARBON DIOXIDE 44.1 MMOL/L (24-32)
[2022-01-10 04:00] LABS: ABG BASE EXCESS 25.9 mmol/L (-2.0-2.0); ABG HCO3 53.8 mmol/L (22.0-26.0); ABG OXYGEN SATURATION 91.9 % (94-97); ABG PCO2 (T) 79.6 mmHg (35.0-48.0); ABG PO2 (T) 62.9 mmHg (75.0-100.0); ALLEN'S TEST POSITIVE; FCOHb 2.1 % (0.0-3.9); FMetHb 0.3 % (0.0-1.5); FO2Hb 89.7 % (94-97); PATIENT TEMPERATURE 36.7; PEEP 14 cm H2O; RESPIRATORY RATE 25 b/min; TIDAL VOLUME 350 mL; TOTAL HEMOGLOBIN 9.7 G/dl (14.0-18.0)
[2022-01-10 04:01] LABS: TRIGLYCERIDES 1280 MG/DL (20-135)
[2022-01-10] MEDS: potassium Cl 20mEq/100mL bag 100 ML IV PRN ×4 (04:23→09:51)
[2022-01-10] MEDS: micafungin inj 100 MG in normal saline 100ml IV soln 100 ML IV SCH (07:14)
[2022-01-10] MEDS: levoFLOXACIN-Levaquin 750MG/D5 150 ML IV SCH (07:14)
[2022-01-10] MEDS: docusate sodium 100mg/10ml UD cup OGT SCH ×2 (07:14→20:50)
[2022-01-10] MEDS: lactobacillus rhamnosus 10,000 MMU CELLS/CAPSULE NG SCH ×2 (07:15→20:50)
[2022-01-10] MEDS: amiodarone 200mg tablet OGT SCH ×2 (07:15→20:50)
[2022-01-10] MEDS: levoTHYROXINE 25mcg tablet NG SCH (07:15)
[2022-01-10] MEDS: lansoprazole 15mg solutab NG SCH (07:15)
[2022-01-10] MEDS: clonazePAM 1mg tablet OGT SCH ×3 (07:16→15:34)
[2022-01-10] MEDS: hydrocortisone sod succ/PF 100mg/2ml inj. IV SCH ×2 (07:16→20:50)
[2022-01-10] MEDS: aspirin 81mg tab.chew NG SCH (07:16)
[2022-01-10] MEDS: atorvastatin 10mg tablet NG SCH (07:16)
[2022-01-10] MEDS: MULTIVIT-MIN/FERROUS GLUCONATE 9 MG/15 ML LIQUID NG SCH (07:16)
[2022-01-10] MEDS: NORepinephrine 8mg/ 250ml NS 250 ML IV SCH ×2 (07:30→16:24)
[2022-01-10] MEDS: insulin regular, human U-100 3ml vial - multi-dose SQ SCH ×3 (08:00→21:20)
[2022-01-10] MEDS: propofol 1000mg/100ml bottle 100 ML IV SCH ×5 (09:52→20:52)
--- NOTE | 2022-01-10 11:10 | NUR ---
F/u: Noted Propofol rate has been increased to 40 mcg/kg/min (35.232 mL/hr) which provides 930 kcal/day however serum TG 1280 mg/dL, TC to clinical pharmacist and left message for bedside RN. Clinical pharmacist to d/w Will continue to follow and monitor need to adjust TF rate pending possible adjustment to Propofol rate. Addendum: 01/10/22 at [address] Amended: Links added. Addendum: 01/10/22 at [address] Received TC from RN, pending f/u serum TG at this time.
[2022-01-10 12:07] LABS: POTASSIUM 3.9 MMOL/L (3.5-5.1)
[2022-01-10] MEDS: potassium Cl 20 mEq SR tablet OGT PRN (12:45)
[2022-01-10] MEDS: enoxaparin 40mg/0.4ml syringe SUBCUT SCH (20:51)
[2022-01-10] MEDS: insulin glargine (Lantus) pen - multi-dose SQ SCH (21:19)
[2022-01-11] VITALS (35 sets, daily range): BP systolic 87–110; BP diastolic 56–74
[2022-01-11] MEDS: propofol 1000mg/100ml bottle 100 ML IV SCH ×7 (00:19→20:03)
[2022-01-11] MEDS: clonazePAM 1mg tablet OGT SCH ×3 (00:20→16:09)
[2022-01-11] MEDS: NORepinephrine 8mg/ 250ml NS 250 ML IV SCH (01:18)
[2022-01-11 03:53] LABS: BASOPHILS % (AUTO) 0.2 % (0-1); EOSINOPHILS % (AUTO) 0.7 % (0-6); HEMATOCRIT 26.8 % (42.0-52.0); HEMOGLOBIN 8.6 g/dl (14.0-17.9); LYMPHOCYTES # (AUTO) 0.4 X10'3 (1.1-4.8); LYMPHOCYTES % (AUTO) 6.6 % (21-51); MEAN CORPUSCULAR HEMOGLOBIN 29.4 PG (27.0-31.0); MEAN CORPUSCULAR HGB CONC 32.1 g/dL (33.0-36.5); MEAN CORPUSCULAR VOLUME 91.8 FL (78-98); MEAN PLATELET VOLUME 8.4 FL (7.4-10.4); MONOCYTES # (AUTO) 0.4 X10'3 (0-0.9); MONOCYTES % (AUTO) 5.7 % (2-12); NEUTROPHILS # (AUTO) 5.6 X10'3 (1.8-7.7); NEUTROPHILS % (AUTO) 86.8 % (42-75); PLATELET COUNT 244 X10'3 (140-440); RED BLOOD COUNT 2.92 X10'6 (4.70-6.10); RED CELL DISTRIBUTION WIDTH 18.3 % (11.5-14.5); WHITE BLOOD COUNT 6.4 X10'3 (4.5-11.0)
[2022-01-11 04:12] LABS: ALANINE AMINOTRANSFERASE 105 U/L (12-78); ALBUMIN/GLOBULIN RATIO 0.5 (1.1-1.5); ALKALINE PHOSPHATASE 67 IU/L (46-116); ASPARTATE AMINO TRANSFERASE 43 U/L (10-37); BILIRUBIN,TOTAL 0.7 MG/DL (0.1-1.0); BLOOD UREA NITROGEN 43 MG/DL (7-18); BUN/CREATININE RATIO 72.9 (5.4-32.0); CALCIUM 8.6 MG/DL (8.5-10.1); CHLORIDE 97 MMOL/L (99-107); CREATININE 0.59 MG/DL (0.60-1.10); GLUCOSE 139 MG/DL (70-104); MAGNESIUM 1.8 MG/DL (1.5-2.4); PHOSPHORUS 3.4 MG/DL (2.3-4.5); SODIUM 146 MMOL/L (135-145); TOTAL PROTEIN 5.7 G/DL (6.4-8.2); TRIGLYCERIDES 157 MG/DL (20-135); eGFR > 90 ML/MIN
[2022-01-11 04:18] LABS: ANION GAP 0 (8-16)
[2022-01-11 04:52] LABS: ANISOCYTOSIS 2+; PLATELET ESTIMATE NORMAL; TOTAL CELLS COUNTED 100
[2022-01-11 04:53] LABS: POLYCHROMASIA FEW; STOMATOCYTES 1+; TEAR DROP CELLS FEW
[2022-01-11 06:11] LABS: D-DIMER 3.48 MG/L FEU (0-0.50)
[2022-01-11] MEDS: insulin regular, human U-100 3ml vial - multi-dose SQ SCH ×3 (07:50→20:56)
[2022-01-11] MEDS: amiodarone 200mg tablet OGT SCH ×2 (07:52→19:59)
[2022-01-11] MEDS: aspirin 81mg tab.chew NG SCH (07:52)
[2022-01-11] MEDS: lactobacillus rhamnosus 10,000 MMU CELLS/CAPSULE NG SCH ×2 (07:52→19:59)
[2022-01-11] MEDS: lansoprazole 15mg solutab NG SCH (07:52)
[2022-01-11] MEDS: levoTHYROXINE 25mcg tablet NG SCH (07:52)
[2022-01-11] MEDS: atorvastatin 10mg tablet NG SCH (07:52)
[2022-01-11] MEDS: hydrocortisone sod succ/PF 100mg/2ml inj. IV SCH (07:52)
[2022-01-11] MEDS: docusate sodium 100mg/10ml UD cup OGT SCH ×2 (07:52→19:59)
[2022-01-11] MEDS: MULTIVIT-MIN/FERROUS GLUCONATE 9 MG/15 ML LIQUID NG SCH (07:52)
[2022-01-11] MEDS: micafungin inj 100 MG in normal saline 100ml IV soln 100 ML IV SCH (07:53)
[2022-01-11] MEDS: FENTANYL-0.9 % NACL/PF 100 ML IV PRN ×3 (08:56→20:03)
[2022-01-11 09:39] LABS: ABG BASE EXCESS 24.8 mmol/L (-2.0-2.0); ABG HCO3 53.3 mmol/L (22.0-26.0); ABG OXYGEN SATURATION 93.8 % (94-97); ABG PCO2 (T) 85.6 mmHg (35.0-48.0); ABG PO2 (T) 66.9 mmHg (75.0-100.0); ALLEN'S TEST Modified; FCOHb 2.1 % (0.0-3.9); FMetHb 0.3 % (0.0-1.5); FO2Hb 91.5 % (94-97); PEEP 14 cm H2O; RESPIRATORY RATE 25 b/min; TIDAL VOLUME 350 mL; TOTAL HEMOGLOBIN 9.7 G/dl (14.0-18.0)
--- NOTE | 2022-01-11 11:24 | NUR ---
Reassessment: Pt remains intubated and tolerating TF at goal rate with GRV WNL. Noted f/u serum TG was 199 mg/dL which is down to 157 mg/dL today. Per RN TG lab may have been drawn where Propofol is being administered when pt had a serum TG of 1280 mg/dL. Pt continues receiving Propofol, observed at bedside to be running at 40 mcg/kg/min (33.6 mL/hr) which is providing 887 kcal/day. Recommend decreased TF goal rate to 60 mL/hr to reduce overfeeding while on the vent, MD rosario, d/w RN and updated EMR. Serum Na elevated at 146 MMOL/L, pt receiving 200 mL water flush Q4H per . LBM 01/08, receiving routine bowel care with additional PRN bowel care available. Will continue to follow closely. Recommendations: 1) Given Propofol at 33.6 mL/hr (887 kcal/day), continuous TF using Vital High Protein at 60 mL/hr to provide 1440 mL volume/day, 1440 kcal, 126 g protein, and 1210 mL water. Only able to meet 66% minimum estimated protein needs given Propofol rate 2) IF Propofol discontinued, increase goal rate to 95 mL/hr using Vital High Protein to provide 2280 mL total volume/day, 2280 kcal, 200 g protein, and 1906 mL water 3) Monitor Propofol rate and need to further adjust TF recs 4) Additional 200 mL water flush Q4H per manufacturing engineer paint; monitor serum Na 5) Continue routine MVM with Iron per MD 6) PALB q / 7) Daily scaled wts 8) Routine Bowel care; utilize PRN bowel care 9) DM education once pt stable and has been provided with DM dx by physician after extubation; A1c 7.6% with no PMH DM per EMR Addendum: 01/11/22 at [address] Amended: Links added.
[2022-01-11] MEDS: enoxaparin 40mg/0.4ml syringe SUBCUT SCH (19:59)
[2022-01-11] MEDS: insulin glargine (Lantus) pen - multi-dose SQ SCH (20:55)
[2022-01-12] VITALS (34 sets, daily range): BP systolic 80–123; BP diastolic 47–72
[2022-01-12] MEDS: clonazePAM 1mg tablet OGT SCH ×3 (01:02→16:19)
[2022-01-12] MEDS: propofol 1000mg/100ml bottle 100 ML IV SCH ×6 (01:05→22:22)
[2022-01-12 02:32] LABS: ABG BASE EXCESS 21.1 mmol/L (-2.0-2.0); ABG HCO3 48.5 mmol/L (22.0-26.0); ABG OXYGEN SATURATION 94.6 % (94-97); ABG PCO2 (T) 76.5 mmHg (35.0-48.0); ABG PO2 (T) 73.7 mmHg (75.0-100.0); ALLEN'S TEST POSITIVE; FCOHb 2.3 % (0.0-3.9); FMetHb 0.2 % (0.0-1.5); FO2Hb 92.2 % (94-97); PATIENT TEMPERATURE 37.1; PEEP 14 cm H2O; RESPIRATORY RATE 25 b/min; TIDAL VOLUME 350 mL; TOTAL HEMOGLOBIN 9.1 G/dl (14.0-18.0)
[2022-01-12] MEDS: insulin regular, human U-100 3ml vial - multi-dose SQ SCH ×4 (03:40→20:24)
[2022-01-12 04:03] LABS: BASOPHILS % (AUTO) 0.3 % (0-1); EOSINOPHILS # (AUTO) 0.1 X10'3 (0-0.9); EOSINOPHILS % (AUTO) 1.3 % (0-6); HEMOGLOBIN 8.3 g/dl (14.0-17.9); LYMPHOCYTES # (AUTO) 0.7 X10'3 (1.1-4.8); LYMPHOCYTES % (AUTO) 10.6 % (21-51); MEAN CORPUSCULAR HEMOGLOBIN 29.5 PG (27.0-31.0); MEAN PLATELET VOLUME 7.8 FL (7.4-10.4); MONOCYTES # (AUTO) 0.5 X10'3 (0-0.9); MONOCYTES % (AUTO) 7.6 % (2-12); NEUTROPHILS % (AUTO) 80.2 % (42-75); PLATELET COUNT 265 X10'3 (140-440); RED BLOOD COUNT 2.83 X10'6 (4.70-6.10); RED CELL DISTRIBUTION WIDTH 18.1 % (11.5-14.5); WHITE BLOOD COUNT 6.2 X10'3 (4.5-11.0)
[2022-01-12 04:20] LABS: ALANINE AMINOTRANSFERASE 99 U/L (12-78); ALBUMIN 1.9 G/DL (3.4-5.0); ALBUMIN/GLOBULIN RATIO 0.4 (1.1-1.5); ALKALINE PHOSPHATASE 65 IU/L (46-116); ASPARTATE AMINO TRANSFERASE 44 U/L (10-37); BILIRUBIN,TOTAL 0.7 MG/DL (0.1-1.0); BLOOD UREA NITROGEN 42 MG/DL (7-18); BUN/CREATININE RATIO 66.7 (5.4-32.0); CHLORIDE 96 MMOL/L (99-107); CREATININE 0.63 MG/DL (0.60-1.10); GLUCOSE 143 MG/DL (70-104); MAGNESIUM 1.7 MG/DL (1.5-2.4); PHOSPHORUS 3.3 MG/DL (2.3-4.5); POTASSIUM 3.2 MMOL/L (3.5-5.1); SODIUM 143 MMOL/L (135-145); TOTAL PROTEIN 6.2 G/DL (6.4-8.2); eGFR > 90 ML/MIN
[2022-01-12 04:40] LABS: ANION GAP -3 (8-16)
[2022-01-12 04:42] LABS: TOTAL CARBON DIOXIDE > 50 MMOL/L (24-32)
[2022-01-12] MEDS: levoTHYROXINE 25mcg tablet NG SCH (07:21)
[2022-01-12] MEDS: aspirin 81mg tab.chew NG SCH (07:21)
[2022-01-12] MEDS: micafungin inj 100 MG in normal saline 100ml IV soln 100 ML IV SCH (07:21)
[2022-01-12] MEDS: amiodarone 200mg tablet OGT SCH ×2 (07:21→20:16)
[2022-01-12] MEDS: atorvastatin 20mg tablet NG SCH (07:21)
[2022-01-12] MEDS: lansoprazole 15mg solutab NG SCH (07:21)
[2022-01-12] MEDS: lactobacillus rhamnosus 10,000 MMU CELLS/CAPSULE NG SCH ×2 (07:21→20:17)
[2022-01-12] MEDS: docusate sodium 100mg/10ml UD cup OGT SCH ×2 (07:22→20:18)
[2022-01-12] MEDS: predniSONE 20 mg tablet OGT SCH (07:22)
[2022-01-12] MEDS: MULTIVIT-MIN/FERROUS GLUCONATE 9 MG/15 ML LIQUID NG SCH (07:22)
[2022-01-12] MEDS: potassium Cl 20mEq/100mL bag 100 ML IV PRN ×4 (08:54→12:18)
[2022-01-12] MEDS: FENTANYL-0.9 % NACL/PF 100 ML IV PRN ×3 (12:18→22:21)
--- NOTE | 2022-01-12 14:08 | NUR ---
F/u: Per RN at critical care rounds Propofol is being weaned, currently running at 30 mcg/kg/min (25.2 mL/hr) providing 665 kcal/day. Recommend increasing goal rate to 70 mL/hr to best meet patient's estimated nutrient needs, d/w RN and updated EMR. Per RN pt had two BMs over night with a large BM today, first BM since 01/08 per EMR. Will continue to follow closely. Recommendations: 1) Given Propofol at 25.2 mL/hr (665 kcal/day), continuous TF using Vital High Protein at 70 mL/hr to provide 1680 mL volume/day, 1680 kcal, 147 g protein, and 1404 mL water. Only able to meet 77% minimum estimated protein needs given Propofol rate 2) IF Propofol discontinued, increase goal rate to 95 mL/hr using Vital High Protein to provide 2280 mL total volume/day, 2280 kcal, 200 g protein, and 1906 mL water 3) Monitor Propofol rate and need to further adjust TF recs 4) Additional 200 mL water flush Q4H per crib pad maker; monitor serum Na 5) Continue routine MVM with Iron per MD 6) PALB q / 7) Daily scaled wts 8) Routine Bowel care; utilize PRN bowel care 9) DM education once pt stable and has been provided with DM dx by physician after extubation; A1c 7.6% with no PMH DM per EMR Addendum: 01/12/22 at [address] Amended: Links added.
--- NOTE | 2022-01-12 16:15 | NUR ---
01/12: RN TC pt Propofol weaned to 15mcg/kg/min (13.212ml/hr) w/ TF advanced to 80ml/hr; RD recommends TF increase to 84ml/hr at this time as Propofol weans. Will monitor for further Propofol rates and EN adjustment needs. Recommendations: 1) Given Propofol at 13.212mL/hr (349 kcal/day), continuous TF using Vital High Protein at 84mL/hr to provide 2016mL volume/day, 2016 kcals, 169g protein, and 1685mL water. Only able to meet 89% minimum estimated protein needs given Propofol rate 2) IF Propofol discontinued, increase goal rate to 95 mL/hr using Vital High Protein to provide 2280 mL total volume/day, 2280 kcal, 200 g protein, and 1906 mL water 3) Monitor Propofol rate and need to further adjust TF recs 4) Additional 200 mL water flush Q4H per gear room keeper; monitor serum Na 5) Continue routine MVM with Iron per MD 6) PALB q / 7) Daily scaled wts 8) Routine Bowel care; utilize PRN bowel care 9) DM education once pt stable and has been provided with DM dx by physician after extubation; A1c 7.6% with no PMH DM per EMR Addendum: 01/12/22 at [address] Amended: Links added.
[2022-01-12 18:10] LABS: ALANINE AMINOTRANSFERASE 91 U/L (12-78); ALBUMIN 1.8 G/DL (3.4-5.0); ALBUMIN/GLOBULIN RATIO 0.4 (1.1-1.5); ALKALINE PHOSPHATASE 63 IU/L (46-116); ASPARTATE AMINO TRANSFERASE 42 U/L (10-37); BILIRUBIN,TOTAL 0.7 MG/DL (0.1-1.0); BLOOD UREA NITROGEN 41 MG/DL (7-18); BUN/CREATININE RATIO 68.3 (5.4-32.0); CALCIUM 8.7 MG/DL (8.5-10.1); CHLORIDE 96 MMOL/L (99-107); GLUCOSE 127 MG/DL (70-104); SODIUM 141 MMOL/L (135-145); eGFR > 90 ML/MIN
[2022-01-12 18:39] LABS: ANION GAP -3 (8-16); TOTAL CARBON DIOXIDE 47.8 MMOL/L (24-32)
[2022-01-12] MEDS: enoxaparin 40mg/0.4ml syringe SUBCUT SCH (20:17)
[2022-01-12] MEDS: insulin glargine (Lantus) pen - multi-dose SQ SCH (20:26)
[2022-01-13] VITALS (34 sets, daily range): BP systolic 85–112; BP diastolic 53–69
[2022-01-13] MEDS: clonazePAM 1mg tablet OGT SCH ×4 (00:12→23:02)
[2022-01-13] MEDS: insulin regular, human U-100 3ml vial - multi-dose SQ SCH ×3 (02:16→21:05)
[2022-01-13 03:46] LABS: BASOPHILS % (AUTO) 0.2 % (0-1); EOSINOPHILS # (AUTO) 0.1 X10'3 (0-0.9); EOSINOPHILS % (AUTO) 1.6 % (0-6); HEMATOCRIT 24.9 % (42.0-52.0); LYMPHOCYTES # (AUTO) 0.7 X10'3 (1.1-4.8); LYMPHOCYTES % (AUTO) 10.1 % (21-51); MEAN CORPUSCULAR HEMOGLOBIN 29.3 PG (27.0-31.0); MEAN CORPUSCULAR HGB CONC 32.1 g/dL (33.0-36.5); MEAN CORPUSCULAR VOLUME 91.4 FL (78-98); MEAN PLATELET VOLUME 8.6 FL (7.4-10.4); MONOCYTES # (AUTO) 0.4 X10'3 (0-0.9); MONOCYTES % (AUTO) 6.4 % (2-12); NEUTROPHILS # (AUTO) 5.4 X10'3 (1.8-7.7); NEUTROPHILS % (AUTO) 81.7 % (42-75); PLATELET COUNT 319 X10'3 (140-440); RED BLOOD COUNT 2.72 X10'6 (4.70-6.10); RED CELL DISTRIBUTION WIDTH 18.5 % (11.5-14.5); WHITE BLOOD COUNT 6.6 X10'3 (4.5-11.0)
[2022-01-13 04:02] LABS: ABG BASE EXCESS 23.9 mmol/L (-2.0-2.0); ABG HCO3 50.7 mmol/L (22.0-26.0); ABG OXYGEN SATURATION 96.4 % (94-97); ABG PCO2 (T) 71.6 mmHg (35.0-48.0); ABG PO2 (T) 85.8 mmHg (75.0-100.0); ALLEN'S TEST POSITIVE; FCOHb 2.3 % (0.0-3.9); FMetHb 0.2 % (0.0-1.5); PATIENT TEMPERATURE 37.2; PEEP 14 cm H2O; RESPIRATORY RATE 28 b/min; TIDAL VOLUME 425 mL; TOTAL HEMOGLOBIN 9.1 G/dl (14.0-18.0)
[2022-01-13 04:05] LABS: ALANINE AMINOTRANSFERASE 89 U/L (12-78); ALBUMIN 1.7 G/DL (3.4-5.0); ALBUMIN/GLOBULIN RATIO 0.4 (1.1-1.5); ALKALINE PHOSPHATASE 60 IU/L (46-116); ASPARTATE AMINO TRANSFERASE 42 U/L (10-37); BILIRUBIN,TOTAL 0.8 MG/DL (0.1-1.0); BLOOD UREA NITROGEN 40 MG/DL (7-18); BUN/CREATININE RATIO 66.7 (5.4-32.0); CALCIUM 8.7 MG/DL (8.5-10.1); CHLORIDE 97 MMOL/L (99-107); GLUCOSE 148 MG/DL (70-104); MAGNESIUM 1.6 MG/DL (1.5-2.4); PHOSPHORUS 2.4 MG/DL (2.3-4.5); POTASSIUM 3.4 MMOL/L (3.5-5.1); SODIUM 141 MMOL/L (135-145); TOTAL PROTEIN 6.1 G/DL (6.4-8.2); eGFR > 90 ML/MIN
[2022-01-13 04:08] LABS: ANION GAP -3 (8-16)
[2022-01-13 04:09] LABS: TOTAL CARBON DIOXIDE 47.3 MMOL/L (24-32)
--- NOTE | 2022-01-13 04:21 | NUR ---
01/13: Patient has been steady throughout the night and without issues of decompensating whilst turning or over breathing the vent. His CO2/pCO2 remains at critical values of CO2:47.3 and pCO2:71.6. Charge nurse was notified and the patient will be rounded on by the telehealth Doctor this morning and will receive further direction and orders. Recommendations from 01/12: 1) Given Propofol at 13.212mL/hr (349 kcal/day), continuous TF using Vital High Protein at 84mL/hr to provide 2016mL volume/day, 2016 kcals, 169g protein, and 1685mL water. Only able to meet 89% minimum estimated protein needs given Propofol rate 2) IF Propofol discontinued, increase goal rate to 95 mL/hr using Vital High Protein to provide 2280 mL total volume/day, 2280 kcal, 200 g protein, and 1906 mL water 3) Monitor Propofol rate and need to further adjust TF recs 4) Additional 200 mL water flush Q4H per strategic consultant; monitor serum Na 5) Continue routine MVM with Iron per MD 6) PALB q / 7) Daily scaled wts 8) Routine Bowel care; utilize PRN bowel care 9) DM education once pt stable and has been provided with DM dx by physician after extubation; A1c 7.6% with no PMH DM per EMR
[2022-01-13] MEDS ORDERED: acetaZOLAMIDE IV 500mg inj IV ONE (05:05)
[2022-01-13] MEDS: magnesium 4gm in 100ml NS 100 ML IV PRN (05:20)
[2022-01-13] MEDS: potassium Cl 20mEq/100mL bag 100 ML IV PRN ×4 (05:20→10:11)
[2022-01-13 06:25] LABS: NUCLEATED RED BLOOD CELLS 1 /100WBC (0-0); TOTAL CELLS COUNTED 100
[2022-01-13 06:26] LABS: ANISOCYTOSIS 2+; PLATELET ESTIMATE NORMAL
[2022-01-13 06:27] LABS: STOMATOCYTES 1+
[2022-01-13] MEDS: FENTANYL-0.9 % NACL/PF 100 ML IV PRN ×5 (07:09→22:53)
[2022-01-13] MEDS: MULTIVIT-MIN/FERROUS GLUCONATE 9 MG/15 ML LIQUID NG SCH (07:10)
[2022-01-13] MEDS: docusate sodium 100mg/10ml UD cup OGT SCH ×2 (07:10→20:00)
[2022-01-13] MEDS: amiodarone 200mg tablet OGT SCH ×2 (07:11→20:01)
[2022-01-13] MEDS: aspirin 81mg tab.chew NG SCH (07:11)
[2022-01-13] MEDS: levoTHYROXINE 25mcg tablet NG SCH (07:11)
[2022-01-13] MEDS: lactobacillus rhamnosus 10,000 MMU CELLS/CAPSULE NG SCH ×2 (07:11→20:00)
[2022-01-13] MEDS: lansoprazole 15mg solutab NG SCH (07:11)
[2022-01-13] MEDS: atorvastatin 20mg tablet NG SCH (07:11)
[2022-01-13] MEDS: micafungin inj 100 MG in normal saline 100ml IV soln 100 ML IV SCH (07:12)
[2022-01-13] MEDS: predniSONE 20 mg tablet OGT SCH (07:12)
--- NOTE | 2022-01-13 13:41 | NUR ---
Spoke with donor network passenger relations representative and he stated he would review his chart and make the determinations for him to be a candidate or not. The rep did say that the patient is in the donor network as far as wanting to be an organ donor. Will keep updating as more information comes along.
[2022-01-13] MEDS: propofol 1000mg/100ml bottle 100 ML IV SCH ×3 (13:49→22:53)
[2022-01-13] MEDS: enoxaparin 40mg/0.4ml syringe SUBCUT SCH (20:01)
[2022-01-13] MEDS: insulin glargine (Lantus) pen - multi-dose SQ SCH (21:03)
[2022-01-14] VITALS (33 sets, daily range): BP systolic 84–111; BP diastolic 46–67
[2022-01-14] MEDS: insulin regular, human U-100 3ml vial - multi-dose SQ SCH ×4 (02:33→20:25)
[2022-01-14 02:49] LABS: ALANINE AMINOTRANSFERASE 79 U/L (12-78); ALBUMIN 1.8 G/DL (3.4-5.0); ALBUMIN/GLOBULIN RATIO 0.4 (1.1-1.5); ALKALINE PHOSPHATASE 62 IU/L (46-116); ANION GAP 2 (8-16); ASPARTATE AMINO TRANSFERASE 37 U/L (10-37); BILIRUBIN,TOTAL 0.7 MG/DL (0.1-1.0); BLOOD UREA NITROGEN 41 MG/DL (7-18); BUN/CREATININE RATIO 67.2 (5.4-32.0); C-REACTIVE PROTEIN 12.61 MG/DL (0.0-0.5); CALCIUM 8.6 MG/DL (8.5-10.1); CHLORIDE 95 MMOL/L (99-107); CREATININE 0.61 MG/DL (0.60-1.10); GLUCOSE 126 MG/DL (70-104); PHOSPHORUS 3.2 MG/DL (2.3-4.5); POTASSIUM 3.3 MMOL/L (3.5-5.1); SODIUM 141 MMOL/L (135-145); TOTAL PROTEIN 6.3 G/DL (6.4-8.2); eGFR > 90 ML/MIN
[2022-01-14 02:52] LABS: TOTAL CARBON DIOXIDE 43.9 MMOL/L (24-32)
[2022-01-14 03:06] LABS: BASOPHILS % (AUTO) 0.6 % (0-1); EOSINOPHILS # (AUTO) 0.1 X10'3 (0-0.9); EOSINOPHILS % (AUTO) 1.5 % (0-6); HEMATOCRIT 23.8 % (42.0-52.0); LYMPHOCYTES # (AUTO) 0.7 X10'3 (1.1-4.8); LYMPHOCYTES % (AUTO) 9.8 % (21-51); MEAN CORPUSCULAR HEMOGLOBIN 30.8 PG (27.0-31.0); MEAN CORPUSCULAR HGB CONC 33.6 g/dL (33.0-36.5); MEAN CORPUSCULAR VOLUME 91.5 FL (78-98); MEAN PLATELET VOLUME 8.2 FL (7.4-10.4); MONOCYTES # (AUTO) 0.6 X10'3 (0-0.9); MONOCYTES % (AUTO) 7.5 % (2-12); NEUTROPHILS % (AUTO) 80.6 % (42-75); PLATELET COUNT 375 X10'3 (140-440); RED CELL DISTRIBUTION WIDTH 18.1 % (11.5-14.5); WHITE BLOOD COUNT 7.5 X10'3 (4.5-11.0)
[2022-01-14 03:36] LABS: ABG BASE EXCESS 14.6 mmol/L (-2.0-2.0); ABG HCO3 42.3 mmol/L (22.0-26.0); ABG OXYGEN SATURATION 88.4 % (94-97); ABG PCO2 (T) 71.7 mmHg (35.0-48.0); ABG PO2 (T) 54.3 mmHg (75.0-100.0); ALLEN'S TEST POSITIVE; FCOHb 2.6 % (0.0-3.9); FMetHb 0.1 % (0.0-1.5); PATIENT TEMPERATURE 37.1; PEEP 14 cm H2O; RESPIRATORY RATE 28 b/min; TIDAL VOLUME 425 mL; TOTAL HEMOGLOBIN 11.1 G/dl (14.0-18.0)
[2022-01-14] MEDS: potassium Cl 20mEq/100mL bag 100 ML IV PRN ×3 (05:59→08:12)
[2022-01-14 06:11] LABS: ANISOCYTOSIS 2+; PLATELET ESTIMATE NORMAL; TOTAL CELLS COUNTED 100
[2022-01-14 06:12] LABS: POIKILOCYTOSIS FEW; STOMATOCYTES 1+
[2022-01-14] MEDS: propofol 1000mg/100ml bottle 100 ML IV SCH ×2 (06:57→20:17)
[2022-01-14] MEDS: FENTANYL-0.9 % NACL/PF 100 ML IV PRN ×4 (07:01→20:17)
[2022-01-14] MEDS: lansoprazole 15mg solutab NG SCH (07:03)
[2022-01-14] MEDS: lactobacillus rhamnosus 10,000 MMU CELLS/CAPSULE NG SCH ×2 (07:04→20:16)
[2022-01-14] MEDS: docusate sodium 100mg/10ml UD cup OGT SCH ×2 (07:04→20:16)
[2022-01-14] MEDS: amiodarone 200mg tablet OGT SCH ×2 (07:04→20:16)
[2022-01-14] MEDS: aspirin 81mg tab.chew NG SCH (07:04)
[2022-01-14] MEDS: clonazePAM 1mg tablet OGT SCH ×2 (07:04→15:44)
[2022-01-14] MEDS: levoTHYROXINE 25mcg tablet NG SCH (07:04)
[2022-01-14] MEDS: atorvastatin 20mg tablet NG SCH (07:05)
[2022-01-14] MEDS: micafungin inj 100 MG in normal saline 100ml IV soln 100 ML IV SCH (07:08)
[2022-01-14] MEDS: enoxaparin 40mg/0.4ml syringe SUBCUT SCH (07:08)
[2022-01-14] MEDS: MULTIVIT-MIN/FERROUS GLUCONATE 9 MG/15 ML LIQUID NG SCH (09:45)
--- NOTE | 2022-01-14 11:47 | NUR ---
Reassessment: Pt remains intubated and tolerating TF at goal rate with GRV WNL. Per EMR Propofol continues running at 15 mcg/kg/min (13.212 mL/hr) though visualized at bedside to be running at 20 mcg/kg/min (16.8 mL/hr) providing 443 kcal/day. IF Propofol to remain at 20 mcg/kg/min or to further increase TF goal rate will need to be adjusted to prevent overfeeding while on the vent. LBM 01/12, receiving routine bowel care. Will continue to follow closely and make recommendations as appropriate. Recommendations: 1) If Propofol continues at 16.8 mL/hr (443 kcal/day), decrease TF goal rate to 80 mL/hr to provide 1920 mL total volume/day 1920 kcal, 168 g protein, and 1605 mL water 2) IF Propofol at 13.212 mL/hr (349 kcal/day), continuous TF using Vital High Protein at 84 mL/hr to provide 2016 mL volume/day, 2016 kcal, 169 g protein, and 1685 mL water. Only able to meet 89% minimum estimated protein needs given Propofol rate 3) IF Propofol discontinued, increase goal rate to 95 mL/hr using Vital High Protein to provide 2280 mL total volume/day, 2280 kcal, 200 g protein, and 1906 mL water 4) Monitor Propofol rate and need to further adjust TF recs 5) Additional 200 mL water flush Q4H per tactical intelligence officer; monitor serum Na 6) Continue routine MVM with Iron per MD 7) PALB q / 8) Daily scaled wts 9) Routine Bowel care; utilize PRN bowel care 10) DM education once pt stable and has been provided with DM dx by physician after extubation; A1c 7.6% with no PMH DM per EMR Addendum: 01/14/22 at [address] Amended: Links added.
--- NOTE | 2022-01-14 18:31 | NUR ---
Patient in room CICU 2006. I have received report from OZZY Romero and had the opportunity to ask questions and assume patient care.
--- NOTE | 2022-01-14 19:00 | NUR ---
patient sating 84%, unable to get sats up with suctioning, minimal secretions out. fio2 increased to 90%, now sating 93%. will titrate fio2 back down as tolerated.
[2022-01-14] MEDS: insulin glargine (Lantus) pen - multi-dose SQ SCH (20:26)
--- NOTE | 2022-01-14 22:53 | NUR ---
patient desated to 62% when changing linens. turning to the right was worse than the left. patient placed on 100% and slowly recovered, patient now back on 90% and is sating 100%, will continue to titrate down if he continues to tolerate.
[2022-01-15] VITALS (33 sets, daily range): BP systolic 86–120; BP diastolic 47–68
[2022-01-15] MEDS: FENTANYL-0.9 % NACL/PF 100 ML IV PRN ×6 (01:32→21:13)
[2022-01-15] MEDS: propofol 1000mg/100ml bottle 100 ML IV SCH ×6 (01:32→21:13)
[2022-01-15] MEDS: insulin regular, human U-100 3ml vial - multi-dose SQ SCH ×4 (01:47→21:49)
[2022-01-15 02:48] LABS: HEMOGLOBIN 7.5 g/dl (14.0-17.9); LYMPHOCYTES # (AUTO) 0.6 X10'3 (1.1-4.8); MONOCYTES # (AUTO) 0.6 X10'3 (0-0.9); NEUTROPHILS # (AUTO) 5.8 X10'3 (1.8-7.7)
[2022-01-15 02:50] LABS: BASOPHILS % (AUTO) 0.6 % (0-1); EOSINOPHILS # (AUTO) 0.2 X10'3 (0-0.9); EOSINOPHILS % (AUTO) 2.1 % (0-6); HEMATOCRIT 23.3 % (42.0-52.0); LYMPHOCYTES % (AUTO) 8.3 % (21-51); MEAN CORPUSCULAR HEMOGLOBIN 30.1 PG (27.0-31.0); MEAN CORPUSCULAR HGB CONC 32.4 g/dL (33.0-36.5); MEAN CORPUSCULAR VOLUME 92.9 FL (78-98); MEAN PLATELET VOLUME 8.4 FL (7.4-10.4); MONOCYTES % (AUTO) 8.7 % (2-12); NEUTROPHILS % (AUTO) 80.3 % (42-75); PLATELET COUNT 419 X10'3 (140-440); WHITE BLOOD COUNT 7.2 X10'3 (4.5-11.0)
[2022-01-15 03:02] LABS: ALANINE AMINOTRANSFERASE 66 U/L (12-78); ALBUMIN 1.7 G/DL (3.4-5.0); ALBUMIN/GLOBULIN RATIO 0.4 (1.1-1.5); ALKALINE PHOSPHATASE 58 IU/L (46-116); ANION GAP -3 (8-16); ASPARTATE AMINO TRANSFERASE 35 U/L (10-37); BILIRUBIN,TOTAL 0.5 MG/DL (0.1-1.0); BLOOD UREA NITROGEN 41 MG/DL (7-18); BUN/CREATININE RATIO 68.3 (5.4-32.0); CALCIUM 8.7 MG/DL (8.5-10.1); CHLORIDE 96 MMOL/L (99-107); GLUCOSE 159 MG/DL (70-104); MAGNESIUM 1.9 MG/DL (1.5-2.4); PHOSPHORUS 3.7 MG/DL (2.3-4.5); POTASSIUM 3.7 MMOL/L (3.5-5.1); SODIUM 136 MMOL/L (135-145); TOTAL PROTEIN 6.3 G/DL (6.4-8.2); eGFR > 90 ML/MIN
[2022-01-15 03:05] LABS: TOTAL CARBON DIOXIDE 42.7 MMOL/L (24-32)
[2022-01-15 03:38] LABS: ABG BASE EXCESS 18.1 mmol/L (-2.0-2.0); ABG HCO3 46.5 mmol/L (22.0-26.0); ABG OXYGEN SATURATION 93.2 % (94-97); ABG PCO2 (T) 93.4 mmHg (35.0-48.0); ABG PO2 (T) 73.7 mmHg (75.0-100.0); ALLEN'S TEST Yes; FCOHb 3.2 % (0.0-3.9); FMetHb 0.3 % (0.0-1.5); FO2Hb 89.9 % (94-97); PEEP 14 cm H2O; RESPIRATORY RATE 28 b/min; TIDAL VOLUME 425 mL; TOTAL HEMOGLOBIN 8.1 G/dl (14.0-18.0)
[2022-01-15 04:04] LABS: C-REACTIVE PROTEIN 14.69 MG/DL (0.0-0.5)
--- NOTE | 2022-01-15 06:00 | NUR ---
Patient in room CICU 2007. I have received report from Cecilia PRECIADO and had the opportunity to ask questions and assume patient care.
--- NOTE | 2022-01-15 06:03 | NUR ---
spoke to MD Dupont about soft blood pressure, had originally wanted me to increase propofol to further sedate patient however increasing the gtt is affecting his BP; she is now requesting that I start by increasing the fentanyl first. no other orders given at this time.
--- NOTE | 2022-01-15 06:22 | NUR ---
Problems reprioritized. Patient report given, questions answered & plan of care reviewed with OZZY Richardson.
[2022-01-15 07:41] LABS: ANISOCYTOSIS 1+; NUCLEATED RED BLOOD CELLS 1 /100WBC (0-0); PLATELET ESTIMATE NORMAL; TOTAL CELLS COUNTED 100
[2022-01-15 07:42] LABS: POLYCHROMASIA 2+; STOMATOCYTES 1+
[2022-01-15] MEDS: amiodarone 200mg tablet OGT SCH ×2 (08:39→19:32)
[2022-01-15] MEDS: lactobacillus rhamnosus 10,000 MMU CELLS/CAPSULE NG SCH ×2 (08:39→19:32)
[2022-01-15] MEDS: micafungin inj 100 MG in normal saline 100ml IV soln 100 ML IV SCH (08:39)
[2022-01-15] MEDS: aspirin 81mg tab.chew NG SCH (08:39)
[2022-01-15] MEDS: docusate sodium 100mg/10ml UD cup OGT SCH ×2 (08:39→19:32)
[2022-01-15] MEDS: levoTHYROXINE 25mcg tablet NG SCH (08:39)
[2022-01-15] MEDS: clonazePAM 1mg tablet OGT SCH ×4 (08:39→23:33)
[2022-01-15] MEDS: atorvastatin 20mg tablet NG SCH (08:39)
[2022-01-15] MEDS: lansoprazole 15mg solutab NG SCH (08:46)
[2022-01-15] MEDS: MULTIVIT-MIN/FERROUS GLUCONATE 9 MG/15 ML LIQUID NG SCH (10:09)
--- NOTE | 2022-01-15 13:06 | NUR ---
f/u 01/15: TC from RN regarding Propofol rate and TF. Propofol currently at 25mcg (22.02ml/hr) providing an additional 581kcals/day. Recommend decreasing TF rate to Vital High Protein at 75ml/hr while Propofol at 22.02ml/hr Recommendations: 1) While Propofol at 22.02ml/hr (581kcals), Continuous TF using Vital High Protein at 75ml/hr to provide 1800ml volume, 1800kcals, 158g protein, 1505 free water 2) IF Propofol at 13.212 mL/hr (349 kcal/day), continuous TF using Vital High Protein at 84 mL/hr to provide 2016 mL volume/day, 2016 kcal, 169 g protein, and 1685 mL water. Only able to meet 89% minimum estimated protein needs given Propofol rate 3) IF Propofol discontinued, increase goal rate to 95 mL/hr using Vital High Protein to provide 2280 mL total volume/day, 2280 kcal, 200 g protein, and 1906 mL water 4) Monitor Propofol rate and need to further adjust TF recs 5) Additional 200 mL water flush Q4H per pre press proofer; monitor serum Na 6) Continue routine MVM with Iron per MD 7) PALB q / 8) Daily scaled wts 9) Routine Bowel care; utilize PRN bowel care 10) DM education once pt stable and has been provided with DM dx by physician after extubation; A1c 7.6% with no PMH DM per EMR Addendum: 01/15/22 at [address] Amended: Links added.
--- NOTE | 2022-01-15 18:16 | NUR ---
Problems reprioritized. Patient report given, questions answered & plan of care reviewed with Nick PRECIADO.
[2022-01-15] MEDS ORDERED: NORepinephrine 8mg/ 250ml NS 250 ML IV ONE (18:57)
[2022-01-15] MEDS ORDERED: NORepinephrine inj. 8 MG in dextrose 5%-water 242 ML IV SCH (19:25)
[2022-01-15] MEDS: enoxaparin 40mg/0.4ml syringe SUBCUT SCH (19:33)
[2022-01-15] MEDS: NORepinephrine 8mg/ 250ml NS 250 ML IV SCH (19:35)
[2022-01-15] MEDS: insulin glargine (Lantus) pen - multi-dose SQ SCH (21:48)
[2022-01-16] VITALS (16 sets, daily range): BP systolic 99–118; BP diastolic 54–74
[2022-01-16] MEDS: propofol 1000mg/100ml bottle 100 ML IV SCH ×2 (02:32→09:12)
[2022-01-16] MEDS: FENTANYL-0.9 % NACL/PF 100 ML IV PRN ×2 (02:32→09:36)
[2022-01-16 03:29] LABS: EOSINOPHILS # (AUTO) 0.2 X10'3 (0-0.9); HEMOGLOBIN 7.6 g/dl (14.0-17.9)
[2022-01-16 03:31] LABS: BASOPHILS % (AUTO) 0.5 % (0-1); EOSINOPHILS % (AUTO) 1.7 % (0-6); LYMPHOCYTES # (AUTO) 0.8 X10'3 (1.1-4.8); LYMPHOCYTES % (AUTO) 8.6 % (21-51); MEAN CORPUSCULAR HEMOGLOBIN 29.1 PG (27.0-31.0); MEAN CORPUSCULAR HGB CONC 31.6 g/dL (33.0-36.5); MEAN CORPUSCULAR VOLUME 92.2 FL (78-98); MEAN PLATELET VOLUME 8.5 FL (7.4-10.4); MONOCYTES % (AUTO) 11.1 % (2-12); NEUTROPHILS # (AUTO) 7.3 X10'3 (1.8-7.7); NEUTROPHILS % (AUTO) 78.1 % (42-75); PLATELET COUNT 478 X10'3 (140-440); RED CELL DISTRIBUTION WIDTH 18.2 % (11.5-14.5); WHITE BLOOD COUNT 9.4 X10'3 (4.5-11.0)
[2022-01-16 03:33] LABS: D-DIMER 3.28 MG/L FEU (0-0.50)
[2022-01-16 03:40] LABS: ALANINE AMINOTRANSFERASE 60 U/L (12-78); ALBUMIN 1.7 G/DL (3.4-5.0); ALBUMIN/GLOBULIN RATIO 0.3 (1.1-1.5); ALKALINE PHOSPHATASE 61 IU/L (46-116); ASPARTATE AMINO TRANSFERASE 30 U/L (10-37); BILIRUBIN,TOTAL 0.6 MG/DL (0.1-1.0); BLOOD UREA NITROGEN 43 MG/DL (7-18); BUN/CREATININE RATIO 66.2 (5.4-32.0); C-REACTIVE PROTEIN 16.99 MG/DL (0.0-0.5); CALCIUM 8.7 MG/DL (8.5-10.1); CHLORIDE 95 MMOL/L (99-107); CREATININE 0.65 MG/DL (0.60-1.10); GLUCOSE 165 MG/DL (70-104); MAGNESIUM 1.9 MG/DL (1.5-2.4); PHOSPHORUS 3.6 MG/DL (2.3-4.5); POTASSIUM 3.8 MMOL/L (3.5-5.1); SODIUM 137 MMOL/L (135-145); TOTAL PROTEIN 6.6 G/DL (6.4-8.2); eGFR > 90 ML/MIN
[2022-01-16 03:42] LABS: ANION GAP 2 (8-16)
[2022-01-16 03:48] LABS: TOTAL CARBON DIOXIDE 40.1 MMOL/L (24-32)
[2022-01-16] MEDS: NORepinephrine 8mg/ 250ml NS 250 ML IV SCH (05:12)
--- NOTE | 2022-01-16 06:15 | NUR ---
Patient in room CICU 2006. I have received report from Nick PRECIADO and had the opportunity to ask questions and assume patient care.
[2022-01-16 06:21] LABS: LARGE PLATELETS MODERATE; NUCLEATED RED BLOOD CELLS 1 /100WBC (0-0); PLATELET ESTIMATE INCREASED; TOTAL CELLS COUNTED 100
--- NOTE | 2022-01-16 06:46 | NUR ---
Patient in room CICU 2006. I have received report from Nick PRECIADO and had the opportunity to ask questions and assume patient care.
[2022-01-16] MEDS ORDERED: CefTRIAXone 2gm/D5W 50ml BAG 50 ML IV SCH (08:00)
[2022-01-16] MEDS: micafungin inj 100 MG in normal saline 100ml IV soln 100 ML IV SCH (08:34)
[2022-01-16] MEDS: MULTIVIT-MIN/FERROUS GLUCONATE 9 MG/15 ML LIQUID NG SCH (08:34)
[2022-01-16] MEDS: docusate sodium 100mg/10ml UD cup OGT SCH (08:35)
[2022-01-16] MEDS: lactobacillus rhamnosus 10,000 MMU CELLS/CAPSULE NG SCH (08:36)
[2022-01-16] MEDS: atorvastatin 20mg tablet NG SCH (08:36)
[2022-01-16] MEDS: levoTHYROXINE 25mcg tablet NG SCH (08:36)
[2022-01-16] MEDS: lansoprazole 15mg solutab NG SCH (08:36)
[2022-01-16] MEDS: clonazePAM 1mg tablet OGT SCH (08:36)
[2022-01-16] MEDS: aspirin 81mg tab.chew NG SCH (08:37)
[2022-01-16] MEDS: amiodarone 200mg tablet OGT SCH (08:37)
[2022-01-16] MEDS ORDERED: morphine 10mg/ml inj. IV PRN (09:10)
[2022-01-16] MEDS ORDERED: LORazepam 2 mg/ml vial IV PRN (09:10)
--- NOTE | 2022-01-16 10:45 | NUR ---
Discussed with Dr. Roach to place pt on comfort care this morning after he spoke with family at the bedside. Confirmed with mike Granados to order comfort care resuscitation status for pt. Confirmed also with Charge nurse.
--- NOTE | 2022-01-16 12:36 | NUR ---
RN IS TO DOCUMENT YES TO ALL APPLICABLE AREAS Pronouncement of : 1. Time Physician Notified: 1237 2. Date of : 01/16/22 3. Time of : 123 4. DNR/Withdraw life support documented:Y 5. Monitor strip has been placed on chart:Y 6. Assessment process is of one-minute duration and includes following criteria: a) Patient is unresponsive to all stimuli: Y b) Pupils fixed and non-reactive:Y c) Auscultation of precordium reveals absence of heart tones:Y d) Auscultation of lungs reveals absence of breath sounds:Y e) Absence of blood pressure / all vital signs:Y f) QRS complexes are not present on monitor / EKG strip:Y g) Pacer spikes without capture:Y 4. Comments: Family at bedside, Mary to take home pts belongings-clothes, shoes, glasses. Pt to go to [facility] in [place].
--- NOTE | 2022-01-16 14:59 | NUR ---
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
--- NOTE | 2022-01-16 17:18 | NUR ---
[facility] in [place] called again to get ETA. Sharri stated they didn't have any record that call was made to them, however call was made at 1430 to pick pt [facility]. [facility].
--- NOTE | 2022-01-16 17:31 | NUR ---
Pt picked up by [facility] in [place]. All belongings taken with pt-pts photos, and cross as requested by family.
== END 2022-01-16 17:30 | DRG 870 ==
LOC: ER 20:39 → ED HOLD 11-30 02:31 → CICU 2S 11-30 08:00 → ORTHO 4S 11-30 22:30 → CICU 2S 12-03 05:40 → ORTHO 4S 12-07 19:50 → CICU 2S 12-11 04:15
PROVIDERS: ADMIT Internal Medicine; ATTEND Internal Medicine
PROC: XW033E5 Introduction of Remdesivir Anti-infective into Peripheral Vein, Percutaneous Approach, New Technology Group 5 (ICD-10-PCS; principal; 2021-11-30)
PROC: XW033H5 Introduction of Tocilizumab into Peripheral Vein, Percutaneous Approach, New Technology Group 5 (ICD-10-PCS; 2021-11-30)
PROC: 5A0935A Assistance with Respiratory Ventilation, Less than 24 Consecutive Hours, High Flow/Velocity Cannula (ICD-10-PCS; 2021-11-30)
PROC: 5A09357 Assistance with Respiratory Ventilation, Less than 24 Consecutive Hours, Continuous Positive Airway Pressure (ICD-10-PCS; 2021-12-01)
PROC: 5A0935A Assistance with Respiratory Ventilation, Less than 24 Consecutive Hours, High Flow/Velocity Cannula (ICD-10-PCS; 2021-12-01)
PROC: 5A09357 Assistance with Respiratory Ventilation, Less than 24 Consecutive Hours, Continuous Positive Airway Pressure (ICD-10-PCS; 2021-12-02)
PROC: 5A0935A Assistance with Respiratory Ventilation, Less than 24 Consecutive Hours, High Flow/Velocity Cannula (ICD-10-PCS; 2021-12-02)
PROC: 5A0935A Assistance with Respiratory Ventilation, Less than 24 Consecutive Hours, High Flow/Velocity Cannula (ICD-10-PCS; 2021-12-03)
PROC: 3E03317 Introduction of Other Thrombolytic into Peripheral Vein, Percutaneous Approach (ICD-10-PCS; 2021-12-03)
PROC: 5A09357 Assistance with Respiratory Ventilation, Less than 24 Consecutive Hours, Continuous Positive Airway Pressure (ICD-10-PCS; 2021-12-04)
PROC: 02HV33Z Insertion of Infusion Device into Superior Vena Cava, Percutaneous Approach (ICD-10-PCS; 2021-12-05)
PROC: B548ZZA Ultrasonography of Superior Vena Cava, Guidance (ICD-10-PCS; 2021-12-05)
PROC: 5A09357 Assistance with Respiratory Ventilation, Less than 24 Consecutive Hours, Continuous Positive Airway Pressure (ICD-10-PCS; 2021-12-05)
PROC: 5A0935A Assistance with Respiratory Ventilation, Less than 24 Consecutive Hours, High Flow/Velocity Cannula (ICD-10-PCS; 2021-12-05)
PROC: 4A023N7 Measurement of Cardiac Sampling and Pressure, Left Heart, Percutaneous Approach (ICD-10-PCS; 2021-12-05)
PROC: B2111ZZ Fluoroscopy of Multiple Coronary Arteries using Low Osmolar Contrast (ICD-10-PCS; 2021-12-05)
PROC: B2151ZZ Fluoroscopy of Left Heart using Low Osmolar Contrast (ICD-10-PCS; 2021-12-05)
PROC: 5A0935A Assistance with Respiratory Ventilation, Less than 24 Consecutive Hours, High Flow/Velocity Cannula (ICD-10-PCS; 2021-12-06)
PROC: 5A09357 Assistance with Respiratory Ventilation, Less than 24 Consecutive Hours, Continuous Positive Airway Pressure (ICD-10-PCS; 2021-12-07)
PROC: 5A0935A Assistance with Respiratory Ventilation, Less than 24 Consecutive Hours, High Flow/Velocity Cannula (ICD-10-PCS; 2021-12-07)
PROC: 5A09357 Assistance with Respiratory Ventilation, Less than 24 Consecutive Hours, Continuous Positive Airway Pressure (ICD-10-PCS; 2021-12-08)
PROC: 5A0935A Assistance with Respiratory Ventilation, Less than 24 Consecutive Hours, High Flow/Velocity Cannula (ICD-10-PCS; 2021-12-08)
PROC: 5A0935A Assistance with Respiratory Ventilation, Less than 24 Consecutive Hours, High Flow/Velocity Cannula (ICD-10-PCS; 2021-12-09)
PROC: 5A0935A Assistance with Respiratory Ventilation, Less than 24 Consecutive Hours, High Flow/Velocity Cannula (ICD-10-PCS; 2021-12-10)
PROC: 5A09357 Assistance with Respiratory Ventilation, Less than 24 Consecutive Hours, Continuous Positive Airway Pressure (ICD-10-PCS; 2021-12-11)
PROC: 5A0935A Assistance with Respiratory Ventilation, Less than 24 Consecutive Hours, High Flow/Velocity Cannula (ICD-10-PCS; 2021-12-11)
PROC: 5A09557 Assistance with Respiratory Ventilation, Greater than 96 Consecutive Hours, Continuous Positive Airway Pressure (ICD-10-PCS; 2021-12-12)
PROC: 5A0935A Assistance with Respiratory Ventilation, Less than 24 Consecutive Hours, High Flow/Velocity Cannula (ICD-10-PCS; 2021-12-12)
PROC: 5A1955Z Respiratory Ventilation, Greater than 96 Consecutive Hours (ICD-10-PCS; 2021-12-20)
PROC: 0BH17EZ Insertion of Endotracheal Airway into Trachea, Via Natural or Artificial Opening (ICD-10-PCS; 2021-12-20)
PROC: 06HY33Z Insertion of Infusion Device into Lower Vein, Percutaneous Approach (ICD-10-PCS; 2021-12-21)
PROC: 5A1D70Z Performance of Urinary Filtration, Intermittent, Less than 6 Hours Per Day (ICD-10-PCS; 2021-12-21)
PROC: 30233N1 Transfusion of Nonautologous Red Blood Cells into Peripheral Vein, Percutaneous Approach (ICD-10-PCS; 2022-01-01)
DX: A41.89 Other specified sepsis (principal); U07.1 COVID-19; J12.82 Pneumonia due to coronavirus disease 2019; J15.8 Pneumonia due to other specified bacteria; J80 Acute respiratory distress syndrome; R65.21 Severe sepsis with septic shock; G93.41 Metabolic encephalopathy; I21.A1 Myocardial infarction type 2; D62 Acute posthemorrhagic anemia; D68.9 Coagulation defect, unspecified; E87.1 Hypo-osmolality and hyponatremia; E87.4 Mixed disorder of acid-base balance; K56.7 Ileus, unspecified; N17.9 Acute kidney failure, unspecified; E87.0 Hyperosmolality and hypernatremia; D68.69 Other thrombophilia; E44.0 Moderate protein-calorie malnutrition; D69.6 Thrombocytopenia, unspecified; E03.9 Hypothyroidism, unspecified; E66.01 Morbid (severe) obesity due to excess calories; F17.220 Nicotine dependence, chewing tobacco, uncomplicated; I46.9 Cardiac arrest, cause unspecified; E78.00 Pure hypercholesterolemia, unspecified; E78.5 Hyperlipidemia, unspecified; I95.9 Hypotension, unspecified; I34.0 Nonrheumatic mitral (valve) insufficiency; R79.82 Elevated C-reactive protein (CRP); E11.649 Type 2 diabetes mellitus with hypoglycemia without coma; E87.5 Hyperkalemia; F41.9 Anxiety disorder, unspecified; L89.899 Pressure ulcer of other site, unspecified stage; I11.0 Hypertensive heart disease with heart failure; I20.9 Angina pectoris, unspecified; I48.91 Unspecified atrial fibrillation; I50.9 Heart failure, unspecified; R04.0 Epistaxis; S30.1XXA Contusion of abdominal wall, initial encounter; Z68.38 Body mass index [BMI] 38.0-38.9, adult; Z79.899 Other long term (current) drug therapy; E87.6 Hypokalemia; Z51.5 Encounter for palliative care; X58.XXXA Exposure to other specified factors, initial encounter; Y93.89 Activity, other specified; Y92.230 Patient room in hospital as the place of occurrence of the external cause; Y99.8 Other external cause status
CPT/HCPCS: 36415; 36430; 36569; 36573; 36600; 71045; 71250; 74018; 74176; 76942; 80048; 80053; 80202; 81001; 81003; 82550; 82570; 82803; 82948; 83036; 83605; 83735; 83880; 84100; 84132; 84134; 84145; 84156; 84300; 84443; 84478; 84484; 85007; 85008; 85018; 85025; 85027; 85379; 85384; 85610; 85730; 86140; 86885; 86900; 86901; 86920; 87040; 87070; 87077; 87081; 87186; 87207; 87305; 87635; 92950; 93005; 93306; 93458; 93970; 94002; 94003; 94640; 94660; 94760; 94799; 96360; 96372; 99152; 99153; 99291; A6258; A7015; C1751; C1894; C9803; G0257; G0378; J0282; J0610; J0692; J0696; J0780; J1100; J1120; J1170; J1200; J1364; J1644; J1650; J1720; J1815; J1940; J1956; J2020; J2060; J2150; J2185; J2248; J2250; J2405; J2543; J2704; J2710; J2765; J2920; J2930; J3010; J3262; J3370; J3475; J3480; J3490; J7030; J7040; J7060; J7512; P9016; P9045; P9047; Q4081; Q9963; Q9967